=== PATIENT | female | born 1955 | race Caucasian/White ===

== ENCOUNTER 2019-01-03 08:28 | Inpatient (IN) ==
--- NOTE | 2018-12-26 13:24 | EKG Report ---
Test Performed on : 12/26/2018 1:16:43 PM Test Reason : PAT Blood Pressure : / mmHG Vent. Rate : 115 BPM Atrial Rate : 115 BPM P-R Int : 132 ms QRS Dur : 078 ms QT Int : 318 ms P-R-T Axes : 047 015 058 degrees QTc Int : 439 ms Sinus tachycardia. Possible Left atrial enlargement Left ventricular hypertrophy Cannot rule out Inferior infarct , age undetermined Anterior infarct , age undetermined Abnormal ECG When compared with ECG of 03-NOV-2013 07:52, Anterior infarct is now present Minimal criteria for Inferior infarct are now present Confirmed by Kenny DOVE, MBatsheva Louis ([id number]) on 12/27/2018 12:06:59 PM
[2018-12-26 13:29] LABS: URINE SOURCE CLEAN CATCH
[2018-12-26 14:00] LABS: BILIRUBIN URINE NEGATIVE (NEGATIVE); BLOOD URINE NEGATIVE (NEGATIVE); COLOR YELLOW; GLUCOSE URINE NEGATIVE (NEGATIVE); KETONE URINE NEGATIVE (NEGATIVE); LEUKOCYTES URINE NEGATIVE (NEGATIVE); NITRITE URINE NEGATIVE (NEGATIVE); PH URINE 5.5; PROTEIN URINE NEGATIVE (NEGATIVE); SP GRAVITY URINE 1.016; TURBIDITY URINE CLEAR (CLEAR); UROBILINOGEN URINE NORMAL (NORMAL)
[2018-12-26 14:01] LABS: BASO# 0.06 X1000 (0.0-0.2); BASO% 0.4 % (0.0-0.8); EOS# 0.13 X1000 (0.0-0.7); HEMATOCRIT 41.5 % (37.0-47.0); HEMOGLOBIN 13.6 g/dL (12.0-16.0); IMM GRAN# 0.04 X1000 (0.0-0.04); IMM GRAN% 0.3 % (0.0-0.5); LYMPH# 2.33 X1000 (1.2-3.4); LYMPH% 17.3 % (20.5-51.1); MCH 29.6 PG (27-31); MCHC 32.8 g/dL (33-37); MCV 90.4 FL (81-99); MONO# 1.25 X1000 (0.11-0.59); MONO% 9.3 % (1.7-9.3); MPV 8.9 FL (7.4-10.4); NEUT# 9.69 X1000 (1.4-6.5); NEUT% 71.7 % (42.2-75.2); PLT 476 X1000 (130-400); RBC 4.59 XMIL (4.2-5.4); RDW 13.8 % (11.5-14.5); UR EPITHELIAL CELLS <10 /HPF (<10); URINE BACTERIA NEGATIVE /HPF; URINE RBC <10 /HPF (<10); URINE WBC <10 /HPF (<10)
[2018-12-26 14:04] LABS: INR 1.06; PROTIME 13.9 Seconds (11.0-16.0)
[2018-12-26 14:23] LABS: HEMOGLOBIN A1C 5.8 % (4.8-6.0)
[2018-12-26 14:29] LABS: CALCIUM 9.8 mg/dL (8.8-10.2); CREATININE 1.3 mg/dL (0.5-0.9); POTASSIUM 4.5 mmol/L (3.5-5.1)
[~2019-01-03 08:28] MED LIST: DIPRIVAN 1% ONE; FENTANYL ONE; ROBINUL ONE; VERSED ONE; XYLOCAINE-MPF 2% ONE
[2019-01-03] MEDS ORDERED: DECADRON ONE (08:31)
[2019-01-03] MEDS ORDERED: OFIRMEV 1000 MG/ISOTONIC SOLN 1,000 MG/100 ML BOTTLE ONE (08:31)
[2019-01-03] MEDS ORDERED: PEPCID ONE (09:01)
[2019-01-03] MEDS ORDERED: COLACE ONE (09:01)
[2019-01-03] MEDS ORDERED: REGLAN ONE (09:01)
[2019-01-03] MEDS ORDERED: LYRICA ONE (09:01)
[2019-01-03] MEDS ORDERED: LR 1,000 ML ONE (09:02)
[2019-01-03] MEDS ORDERED: CELEBREX ONE (09:02)
[2019-01-03] MEDS ORDERED: KEFZOL 1 GM/D5W 2 GM/100 ML IVPB ONE (09:02)
[2019-01-03] MEDS ORDERED: DURAMORPH ONE (09:30)
[2019-01-03] MEDS ORDERED: TORADOL ONE (09:30)
[2019-01-03] MEDS ORDERED: MARCAINE 0.25% PF ONE ×2 (09:30→09:50)
[2019-01-03] MEDS ORDERED: VANCOMYCIN ONE (09:31)
[2019-01-03] MEDS ORDERED: EXPAREL 1.3% ONE (09:31)
[2019-01-03] MEDS ORDERED: CYKLOKAPRON 1,000 MG/NS 1,000 MG/100 ML IVPB ONE ×2 (09:34)
[2019-01-03] MEDS ORDERED: SODIUM CHLORIDE 0.9% ONE (09:34)
[2019-01-03] MEDS ORDERED: EPHEDRINE ONE (10:19)
[2019-01-03] MEDS ORDERED: DIPRIVAN 1% ONE ×2 (11:06→11:52)
[2019-01-03 11:18] LABS: URINE SOURCE CATH
[2019-01-03 11:21] LABS: BILIRUBIN URINE NEGATIVE (NEGATIVE); BLOOD URINE NEGATIVE (NEGATIVE); COLOR YELLOW; GLUCOSE URINE NEGATIVE (NEGATIVE); KETONE URINE NEGATIVE (NEGATIVE); LEUKOCYTES URINE NEGATIVE (NEGATIVE); NITRITE URINE NEGATIVE (NEGATIVE); PH URINE 5.5; PROTEIN URINE NEGATIVE (NEGATIVE); SP GRAVITY URINE 1.016; TURBIDITY URINE CLEAR (CLEAR); UROBILINOGEN URINE NORMAL (NORMAL)
[2019-01-03 11:22] LABS: UR EPITHELIAL CELLS <10 /HPF (<10); URINE BACTERIA NEGATIVE /HPF; URINE RBC <10 /HPF (<10); URINE WBC <10 /HPF (<10)
--- NOTE | 2019-01-03 12:18 | OPERATIVE NOTE ---
PROCEDURE DATE: 01/03/2019 PREOPERATIVE DIAGNOSIS: Degenerative joint disease right knee. POSTOPERATIVE DIAGNOSIS: Degenerative joint disease right knee. PROCEDURE: Right total knee replacement with Aesculap ceramic coated knee. SURGEON: Dale Minor MD. SALES TEAM MANAGER: Dr. Davonte Mcclendon. Dr. Mcclendon was necessary for proper retraction and manipulation of the knee during the case. ANESTHESIA: Spinal. COMPLICATIONS: None. PROCEDURE IN DETAIL: This 63-year-old female presents for right total knee. Risks, benefits, and no guarantees were discussed with the patient, and she was willing to proceed. She was taken to the operating room and satisfactory anesthesia obtained. The right leg was prepped and draped in the usual sterile fashion. A time-out was taken to confirm operative site, procedure, and patient. The leg was wrapped with an Esmarch and tourniquet inflated to 350 mmHg. A midline incision was made over the front of the knee followed by a quad tendon sparing arthrotomy. The patella was everted and resurfaced with freehand technique and subluxed laterally. The knee was flexed, and an intramedullary hole was made in the distal femur and the distal femoral cutting block secured on the distal femur. The 10 mm was resected off the distal femur. The sizing system was then used and the femur sized to a size 5 narrow femoral component. The 4 in 1 block was secured and the anterior, posterior, and chamfer cuts sequentially made. Any osteophytes were debrided about the femur. The knee was flexed and a PCL retractor placed behind the tibia to protect the neurovascular bundle. 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 The tibial cutting block was secured with intramedullary alignment, and the tibial resection made. The tibia was sized to a size 2 tibial tray. A tibial tray trial was used to prepare for the punch and the implant, and assembled with the stem. The size 5 narrow femur was then impacted onto the femoral implant. The notch was created for the posterior stabilized design using the femoral trial provided osteotome and saw. Trialing with a 10 mm thick poly revealed good range of motion and stability. The patella was sized to a P3 patellar implant, and the drill hole was placed for the patella. The trial components were removed. The bony surfaces thoroughly irrigated with pulsatile lavage. Cement with a gram of vancomycin was then utilized to cement an Aesculap T2 tibia with a 14 x 132 tibial stem, and a size 5 narrow right femoral component. A P3 patella was cemented as well. While the cement cured, excess cement was removed with a [place] elevator. The joint capsule was injected with Exparel for pain management. A Hemovac drain was placed. After curing of the cement, any excess cement was removed with an osteotome. The permanent poly was inserted for 10 mm thick poly, and the knee reduced. Final range of motion was 0 to 120 degrees with midline patellar tracking and excellent soft tissue balance. All components were coated with ceramic coating due to the patient's metal sensitivity. The joint capsule was then thoroughly irrigated and closed with #1 Vicryl in the arthrotomy, 2-0 Vicryl in the subcutaneous, and a running subcuticular type closure for the skin. Care was taken to avoid any haider on the skin. Sterile bandages were applied, and the tourniquet released with good return of capillary blood flow. She was recovered from anesthesia and transferred to recovery room in stable condition. No intraoperative complications were noted. Instrument count and sponge count was correct at the time of closure. cc: Jelani Minor MD
[2019-01-03] MEDS ORDERED: NS 1,000 ML ONE (12:38)
[2019-01-03] MEDS ORDERED: MORPHINE IV PRN ×3 (12:45)
[2019-01-03] MEDS ORDERED: ZOFRAN ODT PO PRN (12:45)
--- NOTE | 2019-01-03 13:08 | Diag Imaging Result Doc PS360 ---
EXAM: KNEE 1-2 VIEWS-RIGHT 01/03/2019 HISTORY: Right total knee TECHNIQUE: Right knee two views COMMENT: There is a total knee arthroplasty. There is no evidence of fracture or other acute bony abnormality. IMPRESSION: Postsurgical changes. Electronically signed by Nic Black 01/03/2019 1:05 PM
--- NOTE | 2019-01-03 13:50 | ORTHOPAEDICS PROGRESS NOTE ---
DATE: 01/03/2019 SUBJECTIVE DATA: Ms. Fregoso seen postop day 0 for right total knee arthroplasty. She reports doing well at this time. She reports she still has some numbness about her knee. She states she would like to go to rehab if that is possible. She would like to speak with the social worker delinquency prevention. OBJECTIVE DATA: Is good sensation to right lower extremity. There is good pedal pulses. The bandages are clean and dry at this time. There is negative Homans sign. Vital signs are stable. Degenerative joint disease right knee with right total knee arthroplasty. PLAN: We will plan on monitoring Ms. Fregoso overnight. Will see if we get her changed to inpatient status. Will check back on her in the morning. Dictated by MARK Wakefield for Jelani Minor MD cc: MARK Wakefield MD
[2019-01-03] MEDS: TYLENOL PO SCH ×2 (14:37→20:18)
[2019-01-03] MEDS: OXY IR PO PRN ×3 (14:37→23:31)
[2019-01-03] MEDS: ULTRAM PO SCH ×2 (14:38→20:19)
--- NOTE | 2019-01-03 16:58 | Diag Imaging Result Doc PS360 ---
EXAM: CHEST-1 VIEW - 01/03/2019 HISTORY: rehab TECHNIQUE: Portable chest COMPARISON: 10/09/2011 FINDINGS: Heart size appears in the upper range of normal. There is mild prominence of central markings which appears to be chronic. There is mild subsegmental atelectasis at the left base. There is no consolidation, pleural effusion, or pneumothorax identified. IMPRESSION: Mild subsegmental atelectasis at left base. No other evidence of acute disease. Electronically signed by Sang Apodaca 01/03/2019 4:55 PM
[2019-01-03] MEDS: KEFZOL 2 GM/D5W 2 GM/50 ML IVPB IV SCH (17:10)
[2019-01-03] MEDS: CELEBREX PO SCH (20:18)
[2019-01-03] MEDS: COLACE PO SCH (20:18)
[2019-01-03] MEDS ORDERED: NON-FORMULARY MED (Celecoxib [Celebrex] 200 MG) PO SCH (21:00)
[2019-01-04] MEDS: NS 1,000 ML IV SCH ×2 (01:16→01:18)
[2019-01-04] MEDS: PLETAL PO SCH ×3 (01:16→21:13)
[2019-01-04] MEDS: KEFZOL 2 GM/D5W 2 GM/50 ML IVPB IV SCH (01:17)
[2019-01-04] MEDS: TYLENOL PO SCH ×4 (01:17→21:13)
[2019-01-04] MEDS: ULTRAM PO SCH ×2 (01:17→08:10)
[2019-01-04] MEDS: OXY IR PO PRN ×3 (04:16→11:50)
[2019-01-04 06:00] LABS: HEMATOCRIT 34.1 % (37.0-47.0); HEMOGLOBIN 11.1 g/dL (12.0-16.0)
[2019-01-04 06:26] LABS: AGAP 11; BUN 15 mg/dL (8-22); CALCIUM 8.2 mg/dL (8.8-10.2); CHLORIDE 100 mmol/L (98-107); COSMO 265; CREATININE 0.7 mg/dL (0.5-0.9); ESTIMATED GFR > 60; GLUCOSE 100 mg/dL (70-104); POTASSIUM 4.1 mmol/L (3.5-5.1); SODIUM 132 mmol/L (136-145); TCO2 21 mmol/L (25-35)
--- NOTE | 2019-01-04 07:59 | ORTHOPAEDICS PROGRESS NOTE ---
DATE: 01/04/2019 Ms. Fregoso is seen status post total knee replacement. At the present time, she is afebrile with stable vital signs. Her bandage is clean and dry. We will discontinue the lines and mobilize her today. We will await to hear from the psychiatric social worker supervisor regarding rehab placement. She can be mobilized today full weightbearing. cc: Jelani Minor MD
[2019-01-04] MEDS: PRILOSEC PO SCH (08:08)
[2019-01-04] MEDS: AVAPRO PO SCH (08:08)
[2019-01-04] MEDS: ASPIRIN PO SCH (08:09)
[2019-01-04] MEDS: LIPITOR PO SCH (08:09)
[2019-01-04] MEDS: COLACE PO SCH ×2 (08:09→21:13)
[2019-01-04] MEDS: CELEBREX PO SCH (08:09)
[2019-01-04] MEDS ORDERED: CELEXA PO SCH (09:00)
[2019-01-04] MEDS ORDERED: PEPCID PO SCH (09:00)
[2019-01-04] MEDS ORDERED: ASPIRIN PO SCH (09:00)
[2019-01-04] MEDS ORDERED: DESYREL PO SCH (09:00)
[2019-01-04] MEDS ORDERED: DUONEB (A & A) INH PRN (09:27)
--- NOTE | 2019-01-04 09:48 | Diag Imaging Result Doc PS360 ---
EXAM: CHEST-PORTABLE 01/04/2019 HISTORY: decreased O2 sat, congestion TECHNIQUE: AP portable at 0938 COMMENT: There is increased interstitial and some alveolar opacity in both lungs which has worsened since 01/03/2019. There is cardiomegaly. IMPRESSION: Pulmonary edema. Electronically signed by Nic Black 01/04/2019 9:46 AM
[2019-01-04] MEDS ORDERED: NS 1,000 ML IV SCH (10:00)
--- NOTE | 2019-01-04 10:23 | EKG Report ---
Test Performed on : 01/04/2019 10:16:55 AM Test Reason : acute resp. failure, Blood Pressure : / mmHG Vent. Rate : 076 BPM Atrial Rate : 076 BPM P-R Int : 148 ms QRS Dur : 086 ms QT Int : 376 ms P-R-T Axes : 064 047 054 degrees QTc Int : 423 ms Normal sinus rhythm. Normal ECG When compared with ECG of 26-DEC-2018 13:16, Vent. rate has decreased BY 39 BPM Criteria for Anterior infarct are no longer present Minimal criteria for Inferior infarct are no longer present Confirmed by Sarah Cox MD ([id number]) on 01/04/2019 12:03:07 PM
[2019-01-04 10:27] LABS: ALLEN TEST YES; BE -2.5 mmoll (-3.0-3.0); BLOOD TYPE ARTERIAL; HCO3-(ACT) 22.9 mmoll (20.0-26.0); METHB 0.9 % (0.0-1.5); O2(CT) 14.3 mL/dL (15.0-23.0); O2HB 91.8 % (95.0-99.0); PCO2(98.6) 34 mmHg (35-45); PO2(98.6) 56 mmHg (60-100); SAMPLE BLOOD; SAO2 95.6 % (95.0-100.0); THB 11.1 g/dL (11.5-17.4); pH(98.6) 7.41 (7.35-7.45)
[2019-01-04 10:28] LABS: MODALITY CANNULA
[2019-01-04] MEDS ORDERED: LASIX IV ONE ×2 (10:58→15:00)
--- NOTE | 2019-01-04 11:06 | CONSULTATION ---
DATE OF CONSULTATION: 01/04/2019 CHIEF COMPLAINT: Medical consultation for low O2 saturation in the 70s this a.m. with shortness of breath and rhonchi throughout lung mcintyre status post right total knee replacement on 01/03/2019. HISTORY OF PRESENTING ILLNESS: This is a 63-year-old, female who presented to [facility] to Orthopedic [facility] for a right total knee replacement on 01/03/2019. This morning, on 01/04/2019, patient complained of being short of breath and was noted to have a room O2 saturation in the 70s. Was placed on O2 at 6 L. It came up to 93%. Was noted to have rhonchi to bilateral lungs posteriorly. Equal lung expansion and chest wall movement noted. No current respiratory distress. She is receiving a breathing treatment at this time. We have obtained a portable chest x-ray and we will follow this patient throughout the remainder of her hospital stay. PAST MEDICAL HISTORY: Hypertension, cirrhosis, depression, and GERD. PAST SURGICAL HISTORY: Left knee replacement, now had a right knee replacement on 01/03/2019, and a hip replacement. FAMILY HISTORY: Reviewed and noncontributory. SOCIAL HISTORY: She currently lives alone. She is a former smoker of 30+ years but has been quit. Denies any alcohol or illicit drug use. ALLERGIES: Azithromycin, latex, metronidazole,metal,mycin HOME MEDICATIONS: She takes tramadol 50 mg p.o. q.8 hours p.r.n. (that has been held). We will continue her aspirin 325 mg p.o. daily, atorvastatin 40 mg p.o. daily, Celebrex 200 mg p.o. b.i.d., cilostazol 100 mg p.o. b.i.d., Celexa 40 mg p.o. daily, Avapro 150 mg p.o. daily, omeprazole 20 mg p.o. daily, and trazodone 50 mg p.o. daily. LABORATORY DATA: Showed a white blood cell count of 13.50, hemoglobin of 13.6, hematocrit 41.5, with platelets of 476,000. This was on 12/26/2018. This morning, we repeated her hemoglobin and hematocrit, and it was 11.1 and 34.1. Sodium was 132, potassium 4.1, chloride 100, CO2 of 21, BUN of 15, creatinine 0.7. Urinalysis was negative on 01/03/2019. A chest x-ray that was done yesterday afternoon showed mild subsegmental atelectasis at the left base but no other evidence of acute disease. She has a portable chest x-ray pending at this time. REVIEW OF SYSTEMS: She denied any fever, chills, blurred vision, dizziness, chest pain. She has had a nonproductive cough and shortness of breath. Denied any chest pain, abdominal pain, constipation, diarrhea, burning or hurting with urination. She does have some pain to her right knee from her status post total knee replacement, being well controlled with her current pain medication regimen. PHYSICAL EXAMINATION: Vitals: This morning showed a temperature of 98.1 degrees, pulse 70, respirations 18, blood pressure 168/60, and was saturating 94% on room air this morning. Around 9:15, she was noted to have an O2 saturation in the 70s and was placed on nasal cannula at 6 L. Came to an O2 saturation of 93%. HEENT: Normocephalic, atraumatic. Normal ENT inspection. Oropharynx and nares are clear. Eyes: Pupils are equal, round, and reactive to light and accommodation. Extraocular movements are intact. Neck: Normal inspection. Normal range of motion. Lungs: Diffuse rhonchi and crackles bilaterally. Equal lung expansion and chest wall movement noted. O2 via nasal cannula currently in use. Heart: Regular rate and rhythm. No murmurs, rubs, or gallops. Abdomen: Soft, nontender, nondistended. Bowel sounds are present x4 quadrants. Musculoskeletal: She has 5/5 strength to bilateral upper extremities and her left lower extremity. Of course, weakness noted to her right lower extremity as she is status post her total knee replacement yesterday. Neurological: Alert and oriented x 4. The cranial nerves 2-12 appear grossly intact. LABS: Reviewed. IMAGING: Reviewed ASSESSMENT: 1. Acute hypoxemic respiratory failure. The patient appears to be volume overloaded. Will start diuretic therapy, supplemental oxygen and bronchodilator therapy. Will consult the marketing lead for further assistance with management. 2. Acute pulmonary edema. Diuretic therapy will be started. Will monitor the patient's respiratory status closely. 3. Pneumonia. Will order blood and sputum cultures and start broad spectrum antibiotics. 4. Status post right total knee replacement on 01/03/2019. Management as per the orthopedic surgeon. 5. Morbid obesity. Aware. 6. Hyponatremia. Monitor closely. 7. Hypertension. Will start oral antihypertensive therapy. 8. DVT prophylaxis. Will start lovenox. Dictated by MARK Murillo for Michelle Elizondo MD cc: MARK Murillo MD John R. Riehl, MD Edwin K. Matthews, MD I performed a face to face encounter on the patient. I reviewed all labs and imaging on the patient. I agree with the consultation as dictated. JOSE
[2019-01-04 11:15] LABS: CK INDEX 1.6 (0.0-2.5); CK-MB 4.27 ng/mL (0.0-5.0)
--- NOTE | 2019-01-04 11:53 | Diag Imaging Result Doc PS360 ---
EXAM: CT ANGIOGRM PULMONARY ARTERIES 01/04/2019 HISTORY: acute respiratory failure TECHNIQUE: This exam was performed using automated exposure control, adjustment of mA or kV according to patient size, and/or use of iterative reconstruction technique. COMMENT: There are no previous studies available for comparison. 3-D MIPS were performed. There is no evidence of filling defects in the pulmonary arteries. There are atherosclerotic calcifications in the thoracic aortic arch. There is no evidence of aneurysm or dissection. There are coronary calcifications. There are bilateral pleural fluid collections. There is a small hiatal hernia. There is an 18 mm precarinal and a 2.1 cm right paraesophageal node. There is increased interstitial markings bilaterally with groundglass opacity in both upper lobes and both lower lobes. Compared to the previous abdominal study of 11/02/2013 the basilar opacities are new. The pleural fluid collections were not present at that time. IMPRESSION: Pulmonary edema plus minus pneumonia with pleural effusions. No evidence of pulmonary emboli. Electronically signed by Nic Black 01/04/2019 11:52 AM
[2019-01-04] MEDS: MAXIPIME 1 GM in NS 50 ML IV SCH (12:57)
[2019-01-04] MEDS: COREG PO SCH ×3 (12:57→21:15)
[2019-01-04] MEDS: ZYVOX 600 MG/D5W 600 MG/300 ML IVPB IV SCH (12:57)
[2019-01-04] MEDS: LOVENOX SUBQ SCH (12:59)
[2019-01-04] MEDS: LABETALOL IV ONE ×2 (13:02→14:01)
[2019-01-04 14:36] LABS: BILIRUBIN URINE NEGATIVE (NEGATIVE); BLOOD URINE NEGATIVE (NEGATIVE); COLOR STRAW; GLUCOSE URINE NEGATIVE (NEGATIVE); KETONE URINE NEGATIVE (NEGATIVE); LEUKOCYTES URINE NEGATIVE (NEGATIVE); NITRITE URINE NEGATIVE (NEGATIVE); PROTEIN URINE NEGATIVE (NEGATIVE); SP GRAVITY URINE 1.012; TURBIDITY URINE CLEAR (CLEAR); URINE SOURCE CATH; UROBILINOGEN URINE NORMAL (NORMAL)
[2019-01-04] MEDS: MORPHINE IV PRN ×2 (14:36→18:35)
[2019-01-04] MEDS: ZOFRAN IV PRN (14:36)
[2019-01-04 14:37] LABS: UR EPITHELIAL CELLS <10 /HPF (<10); URINE BACTERIA NEGATIVE /HPF; URINE RBC <10 /HPF (<10); URINE WBC <10 /HPF (<10)
[2019-01-04] MEDS: DUONEB (A & A) INH SCH ×3 (15:17→23:16)
[2019-01-04] MEDS: DESYREL PO SCH (21:13)
--- NOTE | 2019-01-04 21:41 | PULMONOLOGY CONSULTATION ---
DATE: 01/04/2019 REQUESTING: Dr. Elizondo. REASON FOR CONSULTATION: Respiratory failure with pulmonary edema. HISTORY OF PRESENT ILLNESS: Ms. Fregoso is a 63-year-old white female with a greater than 50- pack-year history for tobacco (nonsmoker times several years), history of extensive vascular disease without known coronary artery disease. She underwent an elective right total knee replacement yesterday. She developed increased shortness of breath with labored breathing this morning during a walk with physical therapy, and a CAT call was initiated. An emergent CT pulmonary angiogram was performed which revealed no evidence of pulmonary emboli but did reveal pulmonary edema and small effusions. The patient has received a diuretic and has had significant improvement. She reports her breathing has significantly improved. PAST MEDICAL HISTORY/PROBLEM LIST: 1. Peripheral vascular disease status post stents in both lower extremities. 2. Status post right carotid endarterectomy. 3. Status post bilateral hip replacement. 4. Hypertension. 5. History of prior pulmonary edema and fluid overload by report. 6. Hypertension. 7. Dyslipidemia. 8. History of asthma as a child. 9. Osteoarthritis. 10. Depression. 11. History of kyphoplasty. 12. Status post colon resection. SOCIAL HISTORY: Prior tobacco use. No alcohol use. FAMILY HISTORY: Positive for heart disease. REVIEW OF SYSTEMS: Notable for shortness of breath, snoring, cough with pink- tinged sputum earlier today. PHYSICAL EXAMINATION: General: Reveals an obese white female with a BMI of greater than 35, resting comfortably and in no distress. Vital Signs: BP 147/72, heart rate 77, respiratory rate 20, oxygen saturation 96% on supplemental oxygen. HEENT: Pupils are equal and reactive. Oropharynx appears clear. Neck: Supple. Chest: Reveals faint crackles in the lung bases. Cardiac: S1, S2 with a soft 2/6 systolic ejection murmur. Abdomen: Obese and soft. Extremities: Reveal surgical dressings on the right knee. No venous cords are appreciated. LABORATORIES: Arterial blood gas reveals a pH of 7.41, pCO2 of 34, PO2 of 56 on 6 L per nasal cannula. Sodium 132, potassium 4.1, chloride 100, bicarbonate 21, BUN 15, creatinine 0.7. Troponin is less than 0.01. EKG reveals normal sinus rhythm and read as a normal EKG. IMPRESSION: A 63-year-old with extensive tobacco history, obesity, and extensive peripheral vascular disease who has developed acute pulmonary edema and pleural effusions following a surgical procedure. The patient was hypertensive during her event earlier today, and likely has a component of diastolic dysfunction. She has significantly improved with diuresis. ProBNP is elevated, but initial troponin is negative. RECOMMENDATIONS: 1. Continue oxygen for acute hypoxemic respiratory failure. 2. Diuresis as tolerated. 3. Follow up troponin. 4. Consider outpatient ischemia evaluation. 5. Continue ICU monitoring until her oxygen requirements are returning toward her baseline. cc: MD Jelnai Anders MD [facility]
[2019-01-05] MEDS: MAXIPIME 1 GM in NS 50 ML IV SCH ×2 (00:39→11:52)
[2019-01-05] MEDS: ZYVOX 600 MG/D5W 600 MG/300 ML IVPB IV SCH ×2 (00:40→12:58)
[2019-01-05] MEDS: MORPHINE IV PRN ×2 (00:40→05:47)
[2019-01-05] MEDS: TYLENOL PO SCH ×4 (03:17→21:07)
[2019-01-05 04:57] LABS: ALLEN TEST YES; BE 3.5 mmoll (-3.0-3.0); BLOOD TYPE ARTERIAL; HCO3-(ACT) 27.6 mmoll (20.0-26.0); METHB 0.9 % (0.0-1.5); O2HB 96.4 % (95.0-99.0); PCO2(98.6) 44 mmHg (35-45); PO2(98.6) 92 mmHg (60-100); SAMPLE BLOOD; SAO2 99.1 % (95.0-100.0); THB 11.7 g/dL (11.5-17.4); pH(98.6) 7.42 (7.35-7.45)
[2019-01-05 04:58] LABS: MODALITY CANNULA
[2019-01-05 05:23] LABS: BASO# 0.07 X1000 (0.0-0.2); BASO% 0.6 % (0.0-0.8); EOS# 0.22 X1000 (0.0-0.7); EOS% 1.9 % (0.0-10.0); HEMATOCRIT 33.4 % (37.0-47.0); IMM GRAN# 0.02 X1000 (0.0-0.04); IMM GRAN% 0.2 % (0.0-0.5); LYMPH# 1.64 X1000 (1.2-3.4); LYMPH% 14.4 % (20.5-51.1); MCH 29.5 PG (27-31); MCHC 32.9 g/dL (33-37); MCV 89.5 FL (81-99); MPV 9.6 FL (7.4-10.4); NEUT% 67.9 % (42.2-75.2); PLT 330 X1000 (130-400); RBC 3.73 XMIL (4.2-5.4); RDW 13.4 % (11.5-14.5); WBC 11.35 X1000 (4.8-10.8)
[2019-01-05 05:47] LABS: AGAP 12; BUN 15 mg/dL (8-22); CALCIUM 8.4 mg/dL (8.8-10.2); CHLORIDE 103 mmol/L (98-107); COSMO 283; CREATININE 0.8 mg/dL (0.5-0.9); ESTIMATED GFR > 60; GLUCOSE 112 mg/dL (70-104); POTASSIUM 3.9 mmol/L (3.5-5.1); SODIUM 141 mmol/L (136-145); TCO2 26 mmol/L (25-35)
[2019-01-05 05:48] LABS: ALBUMIN 3.4 g/dL (3.5-5.0); DIRECT BILIRUBIN 0.1 mg/dL (0.00-0.20); TOTAL BILIRUBIN 0.34 mg/dL (0.20-1.00); TOTAL PROTEIN 6.8 g/dL (6.3-8.3)
--- NOTE | 2019-01-05 06:59 | Diag Imaging Result Doc PS360 ---
EXAM: CHEST-PORTABLE 01/05/2019 HISTORY: pneumonia TECHNIQUE: AP portable at 0502 COMMENT: The lungs are better expanded than on 01/04/2019. There is somewhat less pleural fluid in the minor fissure. The lungs are slightly clearer. IMPRESSION: Improved pulmonary edema. Electronically signed by Nic Black 01/05/2019 6:57 AM
[2019-01-05] MEDS: DUONEB (A & A) INH SCH ×5 (07:28→22:50)
[2019-01-05] MEDS ORDERED: LASIX IV ONE (08:50)
[2019-01-05] MEDS: ASPIRIN PO SCH (08:59)
[2019-01-05] MEDS: COREG PO SCH ×3 (08:59→21:07)
[2019-01-05] MEDS: AVAPRO PO SCH (08:59)
[2019-01-05] MEDS: PRILOSEC PO SCH (08:59)
[2019-01-05] MEDS: COLACE PO SCH ×2 (09:00→21:07)
[2019-01-05] MEDS: PLETAL PO SCH ×2 (09:00→21:06)
[2019-01-05] MEDS: LIPITOR PO SCH (09:00)
--- NOTE | 2019-01-05 09:32 | ECHO REPORT ---
ORDER DATE: 01/04/2019 INDICATION: Assess LV function. FINDINGS: 1. The right atrium appears normal in size at 3.3 cm. 2. Trace tricuspid regurgitation. Insufficient data to estimate RV systolic pressure. 3. Normal RV size and systolic function. 4. Mild pulmonic insufficiency. 5. Left atrium appears normal in size with a dimension of 3.3 cm. 6. No mitral valve prolapse. Mild mitral regurgitation. No evidence of mitral stenosis. 7. Normal LV size, end-diastolic dimension of 5.1. Normal wall thicknesses with a posterior and interventricular septal wall thickness of 1.1 cm each. Normal LV systolic function. The estimated EF appears to be greater than 55%. Border Stylo echocontrast was used on this study and does not seem to indicate any segmental wall motion abnormalities. 8. Aortic valve is sclerotic. There does not appear to be any significant degree of stenosis or insufficiency. 9. Aorta appears normal in visualized segments. 10. No pericardial effusion seen. cc: MD Michelle Woody MD John R. Riehl, MD
[2019-01-05] MEDS: OXY IR PO PRN ×4 (09:50→22:36)
--- NOTE | 2019-01-05 11:24 | PROGRESS NOTE ---
DATE: 01/05/2019 SUBJECTIVE: This morning, Ms. Fregoso refers to be doing okay. Denies any new complaints. No shortness of breath. No chest pain. OBJECTIVE: Vital signs: Blood pressure is 134/66, pulse of 77, respiration is 18, temperature 98.1 degrees. General: Ms. Fregoso is a 63-year-old female. She is in bed. No distress. HEENT: Mucosa is pink and moist. Anicteric. Acyanotic. Neck: Supple. Chest: Good air entry bilateral. There are no crepitations, no rhonchi. Cardiovascular: Regular rate and rhythm. There is about a 2/6 murmur radiating to the neck. Abdomen: Soft, nontender. Extremities: No pedal edema. The right knee is currently in orthopedic dressing, there is an ice pack in place. Central nervous system: Patient is awake, alert, oriented. There is no focal neurological deficit. LABORATORY DATA: CBC has been reviewed. Mild leukocytosis and mild normocytic anemia. Normal platelet count. Chemistry is also reviewed, completely normal. IMAGING: The patient's chest x-ray this morning shows improved pulmonary edema. The echocardiogram this morning reading shows an ejection fraction of 55% with no wall motion abnormality. ASSESSMENT: 1. Acute hypoxemic respiratory failure after knee surgery. We think this is a combination of a noncardiogenic pulmonary edema and possibly some pneumonitis from aspiration. A follow-up chest x-ray this morning shows significant improvement. The patient was on diuretic therapy. She is currently asymptomatic. 2. Pulmonary edema, presumably noncardiogenic in origin, improved. 3. Status post right total knee replacement. 4. Hypertension, currently controlled. 5. Dyslipidemia. Patient is on statin. PLAN: In general, I think Ms. Fregoso is doing a lot better. We are going to transfer her from the ICU to the surgical floor. Continue with her current medications and await further review from Orthopedics. cc: MD Jelani Dotson MD
[2019-01-05] MEDS: LOVENOX SUBQ SCH (14:12)
--- NOTE | 2019-01-05 14:58 | ORTHOPAEDICS PROGRESS NOTE ---
DATE: 01/05/2019 SUBJECTIVE DATA: Ms. Fregoso is seen for her recent right total knee arthroplasty that she had on Wednesday. She reports she was doing very well until yesterday, and had an episode of shortness of breath. She reports she is doing much better now. She states that they have orders to transfer her to the floor, hopefully today. OBJECTIVE DATA: There is good sensation in her right lower extremity. Her bandages are clean and dry. There is negative Homans sign. There is good sensation. There is good capillary refill of the toes. There are good pedal pulses. ASSESSMENT: Degenerative joint disease, right knee with right total knee arthroplasty. PLAN: I will plan on monitoring Ms. Fregoso since she has had some complications while she is in the hospital. She will need to be transferred to the floor for a day or two before we consider discharging her. We will check back on her later. Dictated by MARK Wakefield for Jelani Minor MD cc: MARK Wakefield MD
[2019-01-05] MEDS: DESYREL PO SCH (21:07)
--- NOTE | 2019-01-05 21:47 | PULMONOLOGY PROGRESS NOTE ---
DATE: 01/05/2019 SUBJECTIVE: The patient is awake, alert, and conversant. She reports her breathing has significantly improved. OBJECTIVE: Vital Signs: The patient is approximately 6 L negative over the last 24 hours. Blood pressure 121/66, heart rate 85, respiratory rate 19, oxygen saturation 96% on 5 L per nasal cannula. HEENT: Pupils are equal and reactive. Oropharynx appears clear. Neck: Supple. Chest: Good air entry bilaterally with minimal crackles in the lung bases. Cardiac: S1, S2. Abdomen: Soft and without hepatosplenomegaly. Extremities: Appropriate dressings on the right knee. LABORATORIES: Chest x-ray reveals better expansion with decreasing pulmonary edema. White blood count 11.3, hemoglobin 11.0, platelet count 330,000. Arterial blood gas reveals a pH of 7.42, pCO2 of 44, pO2 of 92. Sodium 141, potassium 3.9, chloride 103, bicarbonate 26, BUN 15, creatinine 0.8. Sputum culture is pending. IMPRESSION: A 63-year-old with: 1. Acute pulmonary edema with pleural effusions (diastolic dysfunction suspected with hypertension and pain associated with surgical procedure). 2. Acute hypoxemic respiratory failure. 3. Obesity. 4. Extensive tobacco history. 5. Extensive peripheral vascular disease. DISCUSSION: A 63-year-old with problems outlined above. She continues to rapidly improve. RECOMMENDATIONS: 1. Wean oxygen as tolerated. 2. Begin ambulation today. 3. Anticipate discharge home soon. The patient may need transient oxygen at time of discharge given her weight and prior tobacco use. cc: MD Jelani Anders MD
[2019-01-06] MEDS: MAXIPIME 1 GM in NS 50 ML IV SCH ×2 (00:07→13:22)
[2019-01-06] MEDS: ZYVOX 600 MG/D5W 600 MG/300 ML IVPB IV SCH ×2 (00:45→13:55)
[2019-01-06] MEDS: OXY IR PO PRN ×5 (03:06→20:16)
[2019-01-06 05:29] LABS: BASO# 0.04 X1000 (0.0-0.2); BASO% 0.4 % (0.0-0.8); EOS# 0.26 X1000 (0.0-0.7); EOS% 2.4 % (0.0-10.0); HEMATOCRIT 32.5 % (37.0-47.0); HEMOGLOBIN 10.8 g/dL (12.0-16.0); IMM GRAN# 0.02 X1000 (0.0-0.04); IMM GRAN% 0.2 % (0.0-0.5); LYMPH# 1.64 X1000 (1.2-3.4); LYMPH% 14.8 % (20.5-51.1); MCH 29.8 PG (27-31); MCHC 33.2 g/dL (33-37); MCV 89.8 FL (81-99); MONO% 15.4 % (1.7-9.3); MPV 9.5 FL (7.4-10.4); NEUT% 66.8 % (42.2-75.2); PLT 336 X1000 (130-400); RBC 3.62 XMIL (4.2-5.4); RDW 13.3 % (11.5-14.5); WBC 11.06 X1000 (4.8-10.8)
[2019-01-06 05:53] LABS: AGAP 9; ALBUMIN 3.4 g/dL (3.5-5.0); BUN 12 mg/dL (8-22); CALCIUM 8.6 mg/dL (8.8-10.2); CHLORIDE 94 mmol/L (98-107); COSMO 263; CREATININE 0.8 mg/dL (0.5-0.9); ESTIMATED GFR > 60; GLUCOSE 108 mg/dL (70-104); POTASSIUM 3.4 mmol/L (3.5-5.1); SODIUM 131 mmol/L (136-145); TCO2 28 mmol/L (25-35)
[2019-01-06 05:54] LABS: PHOSPHORUS 3.4 mg/dL (2.7-4.5)
[2019-01-06] MEDS: TYLENOL PO SCH ×4 (06:12→20:12)
[2019-01-06] MEDS: DUONEB (A & A) INH SCH ×5 (07:59→23:42)
--- NOTE | 2019-01-06 08:11 | ORTHOPAEDICS PROGRESS NOTE ---
DATE: 01/06/2019 SUBJECTIVE DATA: Ms. Fregoso is seen postop for right total knee arthroplasty. She had surgery on Wednesday. She reports she is doing much better since she got transferred to the medical floor yesterday. She states she is still having occasional shortness of breath. She reports she is probably going to have some oxygen for a while. OBJECTIVE DATA: She has good sensation in the right lower extremity. Her bandages are clean and dry. There is negative Homans sign. The patient can dorsi and plantar flex her foot without difficulty. There is good capillary refill in toes. There are good pedal pulses. ASSESSMENT: 1. Degenerative joint disease right knee with right total knee arthroplasty. 2. Pulmonary edema with pleural effusions. This has been taken care of by Pulmonology. PLAN: Plan on monitoring Ms. Fregoso throughout her hospital stay. As far as the knee is concerned, it is doing well. We would like her to get medically stable before we discharge her. If she is doing well tomorrow, that may be then or possibly Wednesday. We will check back on her later. Dictated by MARK Wakefield for Jelani Minor MD cc: MARK Wakefield MD
[2019-01-06] MEDS ORDERED: KLOR-CON PO ONE (08:22)
[2019-01-06] MEDS: ASPIRIN PO SCH (08:49)
[2019-01-06] MEDS: LIPITOR PO SCH (08:50)
[2019-01-06] MEDS: AVAPRO PO SCH (08:50)
[2019-01-06] MEDS: COLACE PO SCH ×2 (08:50→20:16)
[2019-01-06] MEDS: PRILOSEC PO SCH (08:51)
[2019-01-06] MEDS: COREG PO SCH ×2 (08:51→20:14)
[2019-01-06] MEDS: PLETAL PO SCH ×2 (08:51→20:16)
[2019-01-06] MEDS: LOVENOX SUBQ SCH (13:23)
--- NOTE | 2019-01-06 17:39 | PROGRESS NOTE ---
DATE: 01/06/2019 SUBJECTIVE: Today Ms. Fregoso refers to be doing a whole lot better. She has been up with physical therapy. Breathing is under control. OBJECTIVE: Vital Signs: Blood pressure is down to 134/41, pulse 84, respirations 16, temperature 98.1 degrees. General: Ms. Fregoso is a 63-year-old female. She is in bed, in no distress. HEENT: Mucosa is pink and moist. Anicteric, acyanotic. Neck: Supple. Chest: Good air entry bilateral. I did not hear any crackles or rhonchi. Cardiovascular: Regular rate and rhythm. A 2/6 murmur radiating to the neck. Abdomen: Soft, nontender. Bowel sounds present. Extremities: No pedal edema. The right knee continues to be in orthopedic cast. The cooling pack is still in place. Central Nervous System: The patient is awake, alert, and oriented. LABORATORY DATA: WBC is 11.06, hemoglobin is 10.8, platelet count of 336,000. Chemistry is also reviewed. Sodium is 132, potassium is 3.4. Rest of chemistry is unremarkable. Procalcitonin was actually less than 0.1. ASSESSMENT: 1. Acute hypoxemic respiratory failure after knee surgery. We think this is a combination of noncardiogenic pulmonary edema and possible diastolic heart failure from severe hypertension. The patient is now off oxygen therapy. She is doing a whole lot better. 2. Pulmonary edema, improved. 3. Status post right total knee replacement. Today is day 3 postoperatively. The patient is participating with physical therapy. She seems to be doing well. 4. Hypertension is better controlled. 5. Dyslipidemia, on statin. PLAN: In general, Ms. Fregoso seems to be doing a whole lot better today. A chest x-ray yesterday did show improved pulmonary edema. She does not seem to have any infection going on, so I will discontinue her current antimicrobial therapy. We will continue addressing her. We will continue with the current blood pressure medications, and will be pending rehab placement for her in the coming days. cc: MD Jelani Dotson MD ADDENDUM TO PROGRESS NOTE: I have reviewed Ms Rodriges's sputum culture which is growing gram- negative eddy so there is a very high probability that she might have had some pneumonitis from the gram-negative eddy. So we are going to continue with her cefepime and I have discontinued the Zyvox. MTDD
[2019-01-06] MEDS: DESYREL PO SCH (20:16)
[2019-01-07] MEDS: OXY IR PO PRN ×6 (00:08→21:12)
[2019-01-07] MEDS ORDERED: MAXIPIME 1 GM in NS 50 ML IV SCH (01:00)
[2019-01-07] MEDS: TYLENOL PO SCH ×4 (06:00→21:13)
[2019-01-07] MEDS: DUONEB (A & A) INH SCH ×5 (07:31→23:34)
[2019-01-07] MEDS: ZOFRAN IV PRN (08:09)
--- NOTE | 2019-01-07 09:24 | PROGRESS NOTE ---
DATE: 01/07/2019 SUBJECTIVE: This morning Ms. Fregoso refers to be doing a whole lot better. Denies any new complaints. OBJECTIVE: Vital signs: Blood pressure is 154/47, pulse of 83, respirations 16, temperature is 99.0 degrees. General exam: Ms. Fregoso is a 63-year-old female. She was sitting up in a chair in no distress. HEENT: Mucosa is pink and moist. Anicteric. Acyanotic. Neck: Supple. Chest: Good air entry bilateral. There were no crepitations, no rhonchi. Cardiovascular: Regular rate and rhythm. There is a 2/6 murmur radiating to the neck. GI: Abdomen is soft, nontender. Bowel sounds present. Extremities: No pedal edema. The right knee still is off the orthopedic cast. The surgical wound looks well affronted. There is no bleeding, no draining. Distal pulses are present. LUBRICATION SERVICER: Patient is awake, alert and oriented. LABORATORY DATA: None for today. MICROBIOLOGY DATA: The sputum culture has grown Enterobacter cloacae species, which is sensitive to Levaquin, so we have changed her to Levaquin. ASSESSMENT: 1. Acute hypoxemic respiratory failure after knee surgery. We think it is a combination of pulmonary edema and Enterobacter cloacae pneumonitis. 2. Pulmonary edema, resolved. 3. Enterobacter cloacae pneumonitis. Antimicrobial has been switched to Levaquin for a total of 7 days antimicrobial therapy; today is day 3. 4. Hypertension, controlled. 5. Dyslipidemia. Will continue with statin. PLAN: So, in general I think Ms. Fregoso is doing a lot better. Physical therapy had just come in to evaluate her as well. We will continue with the current management. Her antimicrobial therapy has been switched to p.o. Levaquin for a total of 7 days. Ms. Fregoso is pending a rehab placement on Wednesday. cc: MD Jelani Dotson MD
[2019-01-07] MEDS: PRILOSEC PO SCH (09:40)
[2019-01-07] MEDS: PLETAL PO SCH ×2 (09:41→21:13)
[2019-01-07] MEDS: COLACE PO SCH ×2 (09:42→21:13)
[2019-01-07] MEDS: LEVAQUIN PO SCH (09:42)
[2019-01-07] MEDS: ASPIRIN PO SCH (09:42)
[2019-01-07] MEDS: LIPITOR PO SCH (09:42)
[2019-01-07] MEDS: AVAPRO PO SCH (09:43)
[2019-01-07] MEDS: CELEXA PO SCH (09:50)
[2019-01-07] MEDS: LOVENOX SUBQ SCH (13:00)
--- NOTE | 2019-01-07 18:52 | ORTHOPAEDICS PROGRESS NOTE ---
DATE: 01/07/2019 SUBJECTIVE: Zahira Fregoso is a 63-year-old female patient Dr. Minor'tony who underwent a total knee arthroplasty on Wednesday. She has also developed pulmonary edema, is being followed by the Medicine Team. She states she is much improved and has no complaints and is waiting on rehab placement which she states will be Wednesday. OBJECTIVE: She is a well-developed, well-nourished female. She is alert and cooperative with exam. Her knee wound is clean, dry, intact without sign of infection or drainage. Her calf is soft. She can flex-extend her toes. She has good early range of motion of her knee and her knee is stable to exam. Her leg is neurovascularly intact. Her hemoglobin is 10.8, her hematocrit is 32.5, her white count is 11,000. ASSESSMENT: Stable right total knee arthroplasty. PLAN: We will continue her current medical treatment and physical therapy. She will likely go to rehab on Wednesday. cc: MD Jelani Duron MD
[2019-01-07] MEDS: DESYREL PO SCH (21:13)
[2019-01-08] MEDS: TYLENOL PO SCH ×4 (02:46→20:40)
[2019-01-08] MEDS: OXY IR PO PRN ×5 (05:49→22:44)
[2019-01-08] MEDS: DUONEB (A & A) INH SCH ×5 (07:49→22:45)
--- NOTE | 2019-01-08 08:00 | ORTHOPAEDICS PROGRESS NOTE ---
DATE: 01/08/2019 SUBJECTIVE: Zahira Fregoso is a 63-year-old female who is status post right total knee arthroplasty by Dr. Minor on 01/03. She has no new complaints. OBJECTIVE: She is a well-developed, well-nourished female. She is alert and cooperative with exam. Her wound is clean, dry, intact. Her leg is neurovascularly intact. She has no sign of infection or deep venous thrombosis. ASSESSMENT: Stable right total knee. PLAN: She is planning on going to rehab on Wednesday. cc: MD Jelani Duron MD
[2019-01-08] MEDS: LIPITOR PO SCH (09:54)
[2019-01-08] MEDS: AVAPRO PO SCH (09:54)
[2019-01-08] MEDS: COLACE PO SCH ×2 (09:54→20:41)
[2019-01-08] MEDS: PRILOSEC PO SCH (09:54)
[2019-01-08] MEDS: CELEXA PO SCH (09:54)
[2019-01-08] MEDS: PLETAL PO SCH ×2 (09:54→20:41)
[2019-01-08] MEDS: LEVAQUIN PO SCH (09:54)
[2019-01-08] MEDS: NORVASC PO SCH ×2 (09:58→20:41)
[2019-01-08] MEDS: ASPIRIN PO SCH (10:00)
[2019-01-08] MEDS: LOVENOX SUBQ SCH (14:20)
--- NOTE | 2019-01-08 14:50 | PROGRESS NOTE ---
DATE: 01/08/2019 SUBJECTIVE: Today Ms. Fregoso referred to be doing a lot better. She had 2 family members at the bedside at the time of the encounter. OBJECTIVE: Vital signs: Blood pressure is now 158/71, pulse of 110, respirations 20, temperature 98.5 degrees. The patient was saturating 97% on room air. General: Ms. Fregoso is a 63-year- old female. She is in bed, no distress. HEENT: Mucosa is pink and moist. Anicteric. Acyanotic. Neck: Supple. Chest: Clear to auscultation. Cardiovascular: Regular rate and rhythm. A 2/6 murmur radiating to the neck is present. GI: Abdomen is soft, nontender. Bowel sounds present. Extremities: No pedal edema. FOREST OFFICER: Patient is awake, alert, and oriented. No focal neurological deficit. Musculoskeletal: The right knee wound looks well affronted. No bleeding. No drainage. Pulses are present and patient is neurovascularly intact. LAB: No lab work for this morning. ASSESSMENT: 1. Acute hypoxemic respiratory failure after knee surgery, resolved. 2. Enterobacter cloacae pneumonia. Patient is on p.o. Levaquin, to complete a total of 7 days. 3. Pulmonary edema after knee surgery. We think this was a combination of noncardiogenic and hypertensive induced diastolic heart failure. Pulmonary edema is resolved. 4. Hypertension. We have added amlodipine to her Avapro (irbesartan) for better blood pressure control. 5. Dyslipidemia. Will continue with statin. PLAN: So in general I think Ms. Fregoso is doing a lot better. She did 72 feet yesterday with physical therapy. She is not in any respiratory distress anymore. She is off oxygen therapy and her physical exam is completely reassuring. Ms Fregoso is still pending a rehab placement on Wednesday. cc: MD Jelani Dotson MD
[2019-01-08] MEDS: DESYREL PO SCH (20:41)
[2019-01-09] MEDS: OXY IR PO PRN ×5 (02:50→20:04)
[2019-01-09] MEDS: TYLENOL PO SCH ×4 (02:50→20:04)
[2019-01-09 06:24] LABS: HEMOGLOBIN 10.3 g/dL (12.0-16.0); MCH 29.6 PG (27-31); MCHC 32.2 g/dL (33-37); RBC 3.48 XMIL (4.2-5.4); RDW 13.7 % (11.5-14.5); WBC 10.86 X1000 (4.8-10.8)
[2019-01-09 06:25] LABS: BASO# 0.08 X1000 (0.0-0.2); BASO% 0.7 % (0.0-0.8); EOS# 0.45 X1000 (0.0-0.7); EOS% 4.1 % (0.0-10.0); IMM GRAN# 0.02 X1000 (0.0-0.04); IMM GRAN% 0.2 % (0.0-0.5); LYMPH# 1.98 X1000 (1.2-3.4); LYMPH% 18.2 % (20.5-51.1); MONO# 1.62 X1000 (0.11-0.59); MONO% 14.9 % (1.7-9.3); MPV 9.4 FL (7.4-10.4); NEUT# 6.71 X1000 (1.4-6.5); NEUT% 61.9 % (42.2-75.2); PLT 430 X1000 (130-400)
[2019-01-09 06:38] LABS: AGAP 10; ALBUMIN 3.5 g/dL (3.5-5.0); BUN 11 mg/dL (8-22); CALCIUM 9.1 mg/dL (8.8-10.2); CHLORIDE 96 mmol/L (98-107); COSMO 266; CREATININE 0.7 mg/dL (0.5-0.9); ESTIMATED GFR > 60; GLUCOSE 107 mg/dL (70-104); PHOSPHORUS 3.6 mg/dL (2.7-4.5); POTASSIUM 4.1 mmol/L (3.5-5.1); SODIUM 133 mmol/L (136-145); TCO2 27 mmol/L (25-35)
[2019-01-09] MEDS: DUONEB (A & A) INH SCH ×5 (07:26→22:47)
--- NOTE | 2019-01-09 07:48 | Diag Imaging Result Doc PS360 ---
EXAM: CHEST-1 VIEW INDICATION: SOB TECHNIQUE: One view COMPARISON: 01/05/2019 FINDINGS: Mild interstitial thickening bilaterally likely representing mild edema is approximately stable. No new consolidation is identified. Cardiac silhouette is stable. IMPRESSION: Approximately stable chest. Electronically signed by Jelani Rdz 01/09/2019 7:46 AM
[2019-01-09] MEDS: PLETAL PO SCH ×2 (09:23→20:03)
[2019-01-09] MEDS: PRILOSEC PO SCH (09:24)
[2019-01-09] MEDS: CELEXA PO SCH (09:24)
[2019-01-09] MEDS: AVAPRO PO SCH (09:24)
[2019-01-09] MEDS: ASPIRIN PO SCH (09:24)
[2019-01-09] MEDS: LEVAQUIN PO SCH (09:24)
[2019-01-09] MEDS: LIPITOR PO SCH (09:24)
[2019-01-09] MEDS: COLACE PO SCH ×2 (09:24→20:04)
[2019-01-09] MEDS: NORVASC PO SCH ×2 (09:25→20:04)
--- NOTE | 2019-01-09 12:32 | ORTHOPAEDICS PROGRESS NOTE ---
DATE: 01/09/2019 SUBJECTIVE: Zahira Fregoso is a 63-year-old female patient of Dr. Minor, who has a right total knee. She is going to rehabilitation tomorrow. Unfortunately she is sad this morning, understandably so, as her sister this morning in the ICU, and they told her about it when they woke her up this morning. OBJECTIVE: She is a well-developed, well-nourished female. She is alert and cooperative with the exam. Her wound is clean, dry, and intact. Her calf is soft, and her foot is neurovascularly intact. ASSESSMENT: Stable right total knee arthroplasty. PLAN: She will likely go to rehabilitation tomorrow. Dr. Minor will be back to see her in the morning, as well. cc: MD Jelani Duron MD
--- NOTE | 2019-01-09 13:58 | PROGRESS NOTE ---
DATE: 01/09/2019 SUBJECTIVE: This morning Ms. Fregoso refers to be doing a lot better; however, she felt sad because her sister passed yesterday in the ICU, but for her comorbidities, she feels okay. OBJECTIVELY: Her Current Vitals: Blood pressure is 111/52, pulse is 93, respirations 20, temperature 98.4 degrees, the patient is saturating 96% on room air. On general exam, Ms. Fregoso is a 63-year-old female. She is in bed. No distress. Mucosa is pink and moist. Anicteric. Acyanotic. Neck is supple. Chest was clear to auscultation. Cardiovascular: Regular rate and rhythm. A 2/6 murmur radiating to the neck. Gastrointestinal: Abdomen is soft, nontender. Extremities: No pedal edema. Central Nervous System: Patient is awake, alert, and oriented. Musculoskeletal: The right knee wound looks remarkably well affronted, no bleeding. The right lower extremity is neurovascularly intact. LABORATORY DATA: CBC is unremarkable. Chemistry is also reviewed; sodium is 133, the rest of chemistry is unremarkable. ASSESSMENT: 1. Acute hypoxemic respiratory failure after knee surgery, resolved. 2. Enterobacter cloacae pneumonia. Patient is currently on Levaquin to complete a total of 7 days. 3. Pulmonary edema after knee surgery, resolved. 4. Hypertension. 5. Dyslipidemia. In general, I think Ms. Fregoso is clinically stable. We are still pending a rehabilitation placement for her tomorrow. cc: MD Jelani Dotson MD [facility]
--- NOTE | 2019-01-09 14:59 | PULMONOLOGY PROGRESS NOTE ---
DATE: 01/09/2019 SUBJECTIVE: The patient is awake, alert, and conversant. She reports her sister in the ICU this morning. She denies cough, shortness of breath. She reports she is gaining strength. OBJECTIVE: Vital Signs: She has been afebrile for the last 24 hours. Blood pressure 111/52, heart rate 93, respiratory rate 20, oxygen saturation 96%. HEENT: Pupils are equal and reactive. Oropharynx appears clear. Neck: Supple. Chest: Reveals good air entry bilaterally without wheezing or rhonchi. Cardiac: S1-S2. Abdomen: Soft without hepatosplenomegaly. Extremities: Reveal ice pack device on the right knee. LABORATORIES: White blood count 10.86, hemoglobin 10.3, platelet count 430,000. Sodium 133, potassium 4.1, chloride 96, bicarbonate 27, BUN 11, creatinine 0.7. Chest x-ray reveals mild vascular prominence. IMPRESSION: A 63-year-old with 1. Acute pulmonary edema and pleural effusion associated with diastolic dysfunction. 2. Pneumonia with Enterobacter cloacae species identified on sputum. 3. Acute hypoxemic respiratory failure. 4. History of tobacco use. 5. Extensive peripheral vascular disease. DISCUSSION: A 63-year-old problems outlined above. She continues to rapidly improve. PLAN: 1. Continue bronchial hygiene. 2. Continue ambulation. 3. Complete antibiotics. 4. Anticipate discharge soon. cc: MD Jelani Anders MD
[2019-01-09] MEDS: LOVENOX SUBQ SCH (16:05)
[2019-01-09] MEDS: DESYREL PO SCH (20:05)
[2019-01-10] MEDS: OXY IR PO PRN ×6 (01:27→23:31)
[2019-01-10] MEDS: TYLENOL PO SCH ×4 (01:28→21:47)
[2019-01-10] MEDS: DUONEB (A & A) INH SCH ×5 (08:14→22:47)
[2019-01-10] MEDS: NORVASC PO SCH ×2 (09:05→21:47)
[2019-01-10] MEDS: LIPITOR PO SCH (09:07)
[2019-01-10] MEDS: PRILOSEC PO SCH (09:07)
[2019-01-10] MEDS: AVAPRO PO SCH (09:08)
[2019-01-10] MEDS: LEVAQUIN PO SCH (09:08)
[2019-01-10] MEDS: PLETAL PO SCH ×2 (09:09→21:47)
[2019-01-10] MEDS: COLACE PO SCH ×2 (09:09→21:48)
[2019-01-10] MEDS: CELEXA PO SCH (09:10)
[2019-01-10] MEDS: ASPIRIN PO SCH (09:11)
--- NOTE | 2019-01-10 13:29 | PROGRESS NOTE ---
DATE: 01/10/2019 SUBJECTIVE: Today Ms. Fregoso refers to be doing fairly okay. No new complaints. We just awaiting for approval for her to go to rehab. OBJECTIVE: Vital Signs: Vitals are stable. Blood pressure is 123/46, pulse of 89, respirations 14, temperature 98.5 degrees. The patient is saturating 100% on 2 liters. General: Ms. Fregoso is a 63-year-old female. She is in bed in no distress. HEENT: Mucosa is pink and moist. Anicteric. Acyanotic. Neck: Neck is supple. Chest: Chest was clear to auscultation. No crepitations. No rhonchi. Cardiovascular: Regular rate and rhythm. There is a 2/6 mid systolic murmur in the right base radiating to the neck. MANAGER CUSTOMER SERVICE: Patient is awake, alert, and oriented. Musculoskeletal: The right knee wound looks clean. LABORATORY DATA: No lab work for this morning. ASSESSMENT: 1. Acute hypoxemic respiratory failure after knee surgery resolved. 2. Enterobacter cloacae pneumonia. The patient is on Levaquin. Today is 3 for a total of 7 days. 3. Pulmonary edema after knee surgery secondary to diastolic heart failure resolved. 4. Hypertension controlled. 5. Dyslipidemia. PLAN: So in general Ms. Fregoso seems to be doing a whole lot better. We are going to continue with the Levaquin. End of therapy will be 01/12/2019. We will continue also her other medication for her comorbidities. We are pending rehab approvement for Ms Fregoso. cc: MD Jelani Dotson MD
[2019-01-10] MEDS ORDERED: DIFLUCAN PO ONE (15:06)
[2019-01-10] MEDS: LOVENOX SUBQ SCH (15:24)
[2019-01-10] MEDS: MYCOSTATIN SUSP PO SCH ×2 (17:01→21:51)
--- NOTE | 2019-01-10 19:01 | DISCHARGE SUMMARY ---
ADMISSION DATE: 01/03/2019 DISCHARGE DATE: 01/11/2019 PRINCIPAL PROCEDURE: Right total hip arthroplasty. HOSPITAL COURSE: This is a 63-year-old female that came to the hospital on 01/03/2019 for a right total knee arthroplasty. Ware went to the operating room in satisfactory condition. A right knee replacement was performed. The patient was transferred to the postop recovery unit without complications. She was then transferred to the surgical floor. While she was on the surgical floor the patient did develop some shortness of breath and difficulty breathing and so the patient was transferred to the ICU. She was evaluated by the hospitalist and determined that she had an episode of acute hypoxemic respiratory failure after her knee surgery. They thought it might be some pulmonary edema with some possible aspiration pneumonia. After a few days in the ICU, the patient was stabilized and transferred back to the surgical floor. The patient did well there. She did well walking with Physical Therapy and has not complained of any more shortness of breath or chest pain. There is good sensation to right lower extremity. There is no drainage or redness at this time. There is negative homans signs. There is no pain with calf squeeze. The patient was felt to be ready to be discharged on 01/11/2019. PAST MEDICAL HISTORY: Includes hypertension, psoriasis, and degenerative joint disease. ALLERGIES: Include erythromycin, Bactrim, Flagyl, metal, and clindamycin. MEDICATIONS: Include Lipitor 40 mg daily, Celebrex 200 mg daily, cilostazol 100 mg b.i.d., Celexa 40 mg daily, omeprazole 20 mg daily, Tramadol 50 mg b.i.d. p.r.n. pain, and trazodone 50 mg at bedtime. DISPOSITION: The patient is going to be discharged to a rehab facility tomorrow. FOLLOWUP: She is to follow up with Dr. Minor in 1 week for a recheck on her wound and refills for her prescriptions. DISCHARGE INSTRUCTIONS: Discharged to rehab at this time. Prescriptions were written for trazodone 50 mg at bedtime, Celexa 40 mg daily, Nystatin suspension swish and spit 10 mL t.i.d. x10 days, doxycycline 100 mg b.i.d. x10 days, [place] 10 1 tablet q. 4 p.r.n. pain, Diflucan 150 p.o. now and may repeat in 3 days, and aspirin 325 mg t.i.d. for DVT prophylaxis. She is also being treated for her aspiration pneumonia which has dramatically improved. She can call our office with any questions or concerns. Dictated by MARK Wakefield for Jelani Minor MD cc: MARK Wakefield MD [facility]
[2019-01-10] MEDS: DESYREL PO SCH (21:47)
[2019-01-11] MEDS: TYLENOL PO SCH ×2 (03:11→09:15)
[2019-01-11] MEDS: OXY IR PO PRN ×3 (04:43→13:05)
[2019-01-11] MEDS: DUONEB (A & A) INH SCH ×2 (07:45→11:20)
[2019-01-11 08:44] VITALS: BP 114/56
[2019-01-11] MEDS: NORVASC PO SCH (09:14)
[2019-01-11] MEDS: AVAPRO PO SCH (09:14)
[2019-01-11] MEDS: LIPITOR PO SCH (09:15)
[2019-01-11] MEDS: PRILOSEC PO SCH (09:15)
[2019-01-11] MEDS: COLACE PO SCH (09:15)
[2019-01-11] MEDS: MYCOSTATIN SUSP PO SCH (09:15)
[2019-01-11] MEDS: LEVAQUIN PO SCH (09:15)
[2019-01-11] MEDS: PLETAL PO SCH (09:15)
[2019-01-11] MEDS: CELEXA PO SCH (09:15)
[2019-01-11] MEDS: ASPIRIN PO SCH (09:15)
[2019-01-11] MEDS ORDERED: CELEBREX PO SCH (12:30)
--- NOTE | 2019-01-11 19:25 | PROGRESS NOTE ---
DATE: 01/11/2019 SUBJECTIVE: This morning Ms. Fregoso refers to be doing fairly okay. Denies any new complaints. Physical exam was completely unremarkable. She is stable. She has been approved to go to rehab. We do agree with her going to rehab. OBJECTIVE: Vital Signs: Blood pressure was 114/56, pulse of 99, respirations 24, and temperature 99.1 degrees. The patient was saturating 96% on room air at the time of the discharge. There was not any new laboratory data. ASSESSMENT AND PLAN: We reviewed her medication list, and we are okay with the decision for her to go to rehab. Please refer to the details of her discharge summary which was dictated by the orthopedic team. cc: MD Jelani Dotson MD
== END 2019-01-11 13:15 | DRG 469 ==
LOC: 4N 08:28 → OR 08:28 → SUATTDRO 09:53 → OBSVTOIN 09:53 → ICU 01-04 11:13 → 4N 01-05 15:26
PROVIDERS: ADMIT Orthopaedic Surgery Adult Reconstructive Orthopaedic Surgery; ATTEND Internal Medicine

== ENCOUNTER 2019-07-02 12:38 | Inpatient (IN) ==
[2019-07-02] MEDS ORDERED: NS 1,000 ML IV ONE (13:10)
[2019-07-02 13:21] LABS: BASO# 0.08 X1000 (0.0-0.2); BASO% 0.6 % (0.0-0.8); EOS# 0.17 X1000 (0.0-0.7); EOS% 1.4 % (0.0-10.0); HEMATOCRIT 31.2 % (37.0-47.0); HEMOGLOBIN 9.5 g/dL (12.0-16.0); IMM GRAN# 0.05 X1000 (0.0-0.04); IMM GRAN% 0.4 % (0.0-0.5); LYMPH# 1.22 X1000 (1.2-3.4); LYMPH% 9.7 % (20.5-51.1); MCH 25.1 PG (27-31); MCHC 30.4 g/dL (33-37); MCV 82.3 FL (81-99); MPV 9.6 FL (7.4-10.4); NEUT# 10.04 X1000 (1.4-6.5); NEUT% 79.9 % (42.2-75.2); PLT 498 X1000 (130-400); RBC 3.79 XMIL (4.2-5.4); WBC 12.56 X1000 (4.8-10.8)
[2019-07-02 13:33] LABS: INR 1.11; PROTIME 14.5 Seconds (11.0-16.0)
[2019-07-02 13:34] LABS: PTT 26.4 Seconds (22.3-41.8)
--- NOTE | 2019-07-02 13:42 | Diag Imaging Result Doc PS360 ---
EXAM: CHEST-1 VIEW - 07/02/2019 HISTORY: sepsis protocol TECHNIQUE: Portable chest COMPARISON: 01/09/2019 FINDINGS: There is mild cardiomegaly. There are generalized interstitial infiltrates or edema. There are small bilateral pleural effusions. There is no evidence of pneumothorax. IMPRESSION: Findings which are suggestive of pulmonary edema/congestive heart failure. Electronically signed by Sang Apodaca 07/02/2019 1:39 PM
[2019-07-02 13:52] LABS: ALBUMIN 3.4 g/dL (3.5-5.0); CALCIUM 11.3 mg/dL (8.8-10.2); POTASSIUM 3.9 mmol/L (3.5-5.1); TOTAL BILIRUBIN 0.38 mg/dL (0.20-1.00); TOTAL PROTEIN 6.8 g/dL (6.3-8.3)
[2019-07-02] MEDS ORDERED: BUMEX IV ONE (14:17)
[2019-07-02 14:23] LABS: URINE SOURCE CLEAN CATCH
[2019-07-02 14:26] LABS: BILIRUBIN URINE NEGATIVE (NEGATIVE); BLOOD URINE NEGATIVE (NEGATIVE); COLOR YELLOW; GLUCOSE URINE NEGATIVE (NEGATIVE); KETONE URINE NEGATIVE (NEGATIVE); LEUKOCYTES URINE TRACE (NEGATIVE); NITRITE URINE NEGATIVE (NEGATIVE); PROTEIN URINE 30 mg/dL (NEGATIVE); SP GRAVITY URINE 1.016; TURBIDITY URINE CLEAR (CLEAR); UROBILINOGEN URINE NORMAL (NORMAL)
[2019-07-02 14:27] LABS: UR EPITHELIAL CELLS <10 /HPF (<10); URINE BACTERIA NEGATIVE /HPF; URINE RBC <10 /HPF (<10); URINE WBC <10 /HPF (<10)
--- NOTE | 2019-07-02 16:03 | PROVIDER DOCUMENTATION ---
This chart was entered by Quan Martinez Scribe, acting as scribe for Curly Bar DO. HPI-General Adult - General Chief Complaint: Shortness of Breath Stated Complaint: DIFFICULTY BREATHING Time Seen by Provider: 07/02/19 13:00 Source: patient, family Allergies/Adverse Reactions: Patient Allergies Allergy/AdvReac Type Severity Reaction Status Date / Time azithromycin Allergy Severe DIARRHEA Verified 05/04/19 14:11 latex Allergy Severe RASH Verified 05/04/19 14:11 clindamycin Allergy Verified 05/09/19 09:20 erythromycin base Allergy Verified 05/09/19 09:18 levofloxacin [From Levaquin] Allergy SWELLING Verified 05/04/19 14:11 metronidazole [From Flagyl] Allergy SWELLING Verified 05/04/19 14:11 sulfamethoxazole Allergy Verified 05/09/19 09:19 [From Septra] trimethoprim [From Septra] Allergy Verified 05/09/19 09:19 metal Allergy Severe RASH Uncoded 05/04/19 14:11 mycin Allergy SWELLING Uncoded 05/04/19 14:11 AND JOINT ACHES Home Medications: Home Medication List Medication Instructions Recorded Confirmed Last Taken Type Celecoxib [Celebrex] 200 mg PO BID 01/12/12 07/02/19 05/08/19 15:00 History Omeprazole 20 mg PO DAILY 05/24/12 07/02/19 05/08/19 07:00 History ATORVAstatin [Lipitor] 40 mg PO DAILY 11/02/13 07/02/19 05/08/19 07:00 History Cilostazol 100 mg PO BID 12/26/18 07/02/19 05/08/19 15:00 History Irbesartan [Avapro] 150 mg PO DAILY 12/26/18 07/02/19 05/08/19 07:00 History Aspirin 325 mg PO DAILY #60 tab 01/11/19 07/02/19 05/04/19 07:00 Rx Citalopram [Celexa] 40 mg PO DAILY #30 tab 01/11/19 07/02/19 05/08/19 07:00 Rx Trazodone HCl 50 mg PO QHS 05/04/19 07/02/19 05/08/19 21:00 History Hydrocodone/Acetaminophen [[place] 1 ea PO Q4-6H PRN PRN #30 tab 05/09/19 07/02/19 Unknown Rx 10-325 Tablet] Ondansetron HCl [Zofran] 4 mg PO Q8HR PRN #30 tab 05/09/19 07/02/19 Unknown Rx - History of Present Illness -Gen Adult Nature of Presenting Problems: 64 yof presents to the ed w/ c/o SOB,Cough. pt states SOB onset yesterday. pt states "when cough pain starts across upper back." pt states being admitted in January after knee replacement surgery for 'to much fluid admitted to ICU had Echo resulted as good same result w/ Echo in May." pt states OX in ed has helped SOB. pt states put on Symbicort for SOB and no help. Location of Pain/Injury: reports: none Pain Radiation: reports: no radiation Quality of Pain: reports: none Severity: reports: mild Onset/Duration: reports: 24 hours ago Timing: reports: still present Context/Activities at Onset: reports: none Modifying Factors: improves with: nothing Associated Symptoms: reports: back/neck pain (across upper back when coughing), cough, shortness of breath. denies: fever/chills, nausea, rash, vomiting Similar Symptoms Previously?: No Recently seen or treated by another doctor?: No Review of Systems - Adult - REVIEW OF SYSTEMS - ADULT Constitutional: denies: chills, fever Eyes: reports: no symptoms reported Ears, Nose, Mouth & Throat: reports: no symptoms reported Cardiovascular: reports: no symptoms reported Respiratory: reports: see HPI, cough, shortness of breath. denies: wheezing Gastrointestinal: denies: abdominal pain, diarrhea, nausea, vomiting Genitourinary: reports: no symptoms reported Musculoskeletal: reports: see HPI, back pain. denies: muscle weakness, neck pain Integumentary: denies: hives, rash Neurological: reports: no symptoms reported Psychiatric: reports: no symptoms reported Endocrine: reports: no symptoms reported Hematologic/Lymphatic: reports: no symptoms reported Allergic/Immunologic: reports: no symptoms reported All Other Systems: Reviewed and Negative Past History - Adult - PAST MEDICAL HISTORY-ADULT Review of Records: reports: Old Records Reviewed, Nursing Assessment Review, Medications Reviewed, Social history reviewed & non-contributory. Major Childhood Illnesses: reports: denies history Cardiovascular: reports: HTN, hyperlipidemia Respiratory: reports: asthma Gastrointestinal: reports: GERD, other (diverticulitis) Obstetrical/Gynecological: reports: denies history Genitourinary: reports: denies history Musculoskeletal: reports: denies history Neurological: reports: denies history Psychiatric: reports: denies history Endocrine/Immune: reports: denies history Other Conditions: reports: denies history - PRIOR SURGERIES/PROCEDURES Surgical/Procedure History: reports: hernia repair, other (colon resection, total hip replacement, total knee replacememt) - PRIOR HOSPITALIZATIONS Prior Hospitalizations: reports: for other non-related, for similar symptoms - IMMUNIZATION STATUS Childhood Immunizations: See Nurse Assessment Flu Vaccine: See Nurse Assessment - FAMILY HISTORY Family History: reviewed, not pertinent - SOCIAL HISTORY Smoking: quit greater than 1 year, cigarettes Physical Exam-General - PHYSICAL EXAM-ADULT Initial Vital Signs Reviewed: Yes - CONSTITUTIONAL General Appearance: appears well, alert, mild distress - RESPIRATORY Respiratory: normal breath sounds, rales (bilaterlly) - CARDIOVASCULAR Cardiovascular: regular rate, rhythm, tachycardia (107) - CHEST (BREASTS) Chest/Breast: deferred - GASTROINTESTINAL (ABDOMEN) Abdominal Exam: normal bowel sounds, non tender, soft - GENITOURINARY Female Genitalia/Pelvic Exam: deferred Rectal Exam: deferred Hemoccult Exam: deferred - MUSCULOSKELETAL Extremity: normal inspection - SKIN Integumentary: normal color - NEUROLOGIC Neurologic: grossly normal - PSYCHIATRIC Psych/Mental Status: normal mood/affect, normal thought content, normal thought process, oriented x 3 Progress - PLAN OF CARE/RESULTS Progress/Plan/Lab Results: Vital Signs - 8 hr 07/02/19 12:55 Temperature 97.9 F Pulse Rate 107 H Respiratory Rate 22 Blood Pressure 151/86 O2 Sat by Pulse Oximetry 94 L Laboratory Results - last 24 hr 07/02/19 07/02/19 07/02/19 13:12 13:12 13:12 WBC RBC Hgb Hct MCV MCH MCHC RDW Std Deviation Plt Count MPV Immature Gran % (Auto) Neut % (Auto) Lymph % (Auto) [place] % (Auto) Eos % (Auto) Baso % (Auto) Immature Gran # (Auto) Neut # (Auto) Lymph # (Auto) [place] # (Auto) Eos # (Auto) Baso # (Auto) PT INR PTT (Actin FS) Sodium 142 Potassium 3.9 Chloride 103 Carbon Dioxide 25 Anion Gap 14 BUN 14 Creatinine 1.0 H Estimated GFR/1.73 m2 55 BUN/Creatinine Ratio 14 Glucose 117 H Calculated Osmolality 285 Calcium 11.3 H Total Bilirubin 0.38 AST 29 ALT 13 Alkaline Phosphatase 167 H Creatine Kinase 84 Troponin T High Sens 80 H Total Protein 6.8 Albumin 3.4 L Globulin 3.4 Albumin/Globulin Ratio 1.0 Plasma Lactate 1.3 07/02/19 07/02/19 13:12 13:12 WBC 12.56 H RBC 3.79 L Hgb 9.5 L Hct 31.2 L MCV 82.3 MCH 25.1 L MCHC 30.4 L RDW Std Deviation 16.0 H Plt Count 498 H MPV 9.6 Immature Gran % (Auto) 0.4 Neut % (Auto) 79.9 H Lymph % (Auto) 9.7 L [place] % (Auto) 8.0 Eos % (Auto) 1.4 Baso % (Auto) 0.6 Immature Gran # (Auto) 0.05 H Neut # (Auto) 10.04 H Lymph # (Auto) 1.22 [place] # (Auto) 1.00 H Eos # (Auto) 0.17 Baso # (Auto) 0.08 PT 14.5 INR 1.11 PTT (Actin FS) 26.4 Sodium Potassium Chloride Carbon Dioxide Anion Gap BUN Creatinine Estimated GFR/1.73 m2 BUN/Creatinine Ratio Glucose Calculated Osmolality Calcium Total Bilirubin AST ALT Alkaline Phosphatase Creatine Kinase Troponin T High Sens Total Protein Albumin Globulin Albumin/Globulin Ratio Plasma Lactate Orders Category Date Time Status Cardiac Monitoring DIRECTED Care 07/02/19 12:58 Active IV Insertion ORDERED Care 07/02/19 12:58 Completed Notify MD of + Sepsis Screen NOW Care 07/02/19 12:58 Active Notify Physician As Ordered Care 07/02/19 12:58 Active CHEST-1 VIEW [RAD] Stat Exams 07/02/19 12:58 Completed BLOOD CULTURE [BLDCUL] Stat Lab 07/02/19 13:48 Ordered CBC WITH DIFF [HEME] Stat Lab 07/02/19 13:12 Completed CK PROFILE [SP CHEM] Stat Lab 07/02/19 13:12 Completed COMPREHENSIVE METABOLIC PANEL [CHEM] Stat Lab 07/02/19 13:12 Completed LACTATE, PLASMA [CHEM] Lab 07/02/19 16:00 Uncollected LACTATE, PLASMA [CHEM] Lab 07/02/19 19:00 Uncollected LACTATE, PLASMA [CHEM] Q3H Lab 07/02/19 13:12 Completed PROTIME WITH INR [COAG] Stat Lab 07/02/19 13:12 Completed PTT [COAG] Stat Lab 07/02/19 13:12 Completed TROPONIN T HIGH SENSITIVITY Stat Lab 07/02/19 13:12 Completed URINALYSIS W/POSS RFLX CULT [URINALYSIS] Stat Lab 07/02/19 12:58 Uncollected 0.9% Sodium Chloride Inj [Ns] 1,000 ml Med 07/02/19 13:10 Active IV 999 mls/hr Oxygen Device Stat Oth 07/02/19 12:58 Active Result Diagrams: 07/02/19 13:12 07/02/19 13:12 - REASSESSMENT Reassessment #1 Time Reassessed: 15:52 Status: worsening Reassessment Comment: Patient got up to potty chair and became acutely sob and diaphoretic. Bipa - EKG 1 Time of EKG reading by physician:: 13:05 EKG Read and Signed by:: Curly aBr EKG Interpretation (*Must complete 3 of following elements*): Abnormal Rate: 105 Rhythm: sinus tachycardia w/ premature atrial complexes Paul: normal QRS: normal DE Interval: normal ST Wave: normal 2 Time of EKG reading by physician:: 15:44 EKG Read and Signed by:: Curly Bar EKG Interpretation (*Must complete 3 of following elements*): Abnormal Rate: 119 Rhythm: sinus tachycardia Paul: normal QRS: normal DE Interval: normal ST Wave: normal Comments: possible Lt atrial enlargement/nonspecific ST and T wave abnormality - XRAY 1 XRAY Study: Chest Impression: See EMR Report (EXAM: CHEST-1 VIEW - 07/02/2019 HISTORY: sepsis protocol TECHNIQUE: Portable chest COMPARISON: 01/09/2019 FINDINGS: There is mild cardiomegaly. There are generalized interstitial infiltrates or edema. There are small bilateral pleural effusions. There is no evidence of pneumothorax. IMPRESSION: Findings which are suggestive of pulmonary edema/congestive heart failure. Electronically signed by Sang Apodaca 07/02/2019 1:39 PM 07/02/19 [id number] Interpreting Physician: Sang Apodaca MD Dictated Date/Time: 07/02/19 1782 cc: Curly Bar DO; Adiel Arana MD) - CONSULTS/PCP/HOSPITALIST Notification #1 *Consult/PCP/Hospitalist*: consult w/ Dr. bañuelos Time Discussed: 15:35 Consult Disposition: Admit Departure - Departure Date of Disposition Decision: 07/02/19 Time of Disposition Decision: 16:02 DIAGNOSIS: CHF (congestive heart failure) Qualifiers: Heart failure type: systolic Heart failure chronicity: acute Qualified Code(s): I50.21 - Acute systolic (congestive) heart failure Disposition: ADMITTED INPATIENT 09 Certified Medical Emergency: Emergent Condition: Fair Referrals and Follow-Ups: Adiel Arana MD [Primary Care Provider] - - Critical Care Note This patient required my direct & personal management of CC.: No Attestation - Physician/ HARSH Attestation Patient care was provided by Advanced Practice Provider:: No The physician spent face to face time with patient:: Yes Advanced Practice Provider documentation review:: Supervising physician onsite and consulted in the evaluation and care of this patient. The physician did have a face to face encounter with the patient. This chart was documented by the indicated scribe, (Quan Martinez, Raj) and accurately reflects the services I performed and decisions made by me, Curly May DO, as attested by the provider's signature.
--- NOTE | 2019-07-02 17:39 | HISTORY AND PHYSICAL ---
ADDENDUM: I have seen and examined Ms. Fregoso today in the ER. The daughter and the son were both at the bedside at the time of the encounter. Ms. Fregoso presented to the ER today because of shortness of breath which has been going on since yesterday. She said early this morning she just felt she could not take any breath. Upon presenting to the emergency room, she was found to have O2 saturation of 94% on Venturi mask. Her vitals, otherwise, are stable except slight tachycardic. Of note, Ms. Fregoso has hypertension, dyslipidemia, osteoarthritis, and recently underwent a right knee arthroplasty. PHYSICAL EXAMINATION: VITAL SIGNS: Current vitals blood pressure is 166/76, pulse of 101, respirations 27, temperature 97.9 degrees. GENERAL: Ms. Fregoso is currently under the BiPAP synchronizing well. NECK: Neck is supple. There is positive JVD. CHEST: Air entry is bilaterally reduced. There is diffuse end inspiratory crackles. CARDIOVASCULAR: Tachycardic but no murmurs, no rubs, no gallops. EXTREMITIES: About 2+ pedal edema. GI: Abdomen is soft. There is an old surgical scar in the mid anterior wall. There is a small ulceration in the middle of this scar with inflammatory margins. The base is clean. 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 LABORATORY DATA: Has been reviewed. The patient's WBC is slightly elevated. He also has normocytic anemia. Platelet count is normal. Chemistry is unremarkable. Creatinine is 1.0. Pro B is still pending. A chest x-ray, which was done, shows findings suggestive of pulmonary edema/congestive heart failure. An EKG has been ordered, but has not been done at the time of the encounter. ASSESSMENT: 1. Acute hypoxemic respiratory failure. The patient is currently on the BiPAP. We are going to continue to titrate as needed. 2. Diffuse pulmonary infiltrate concerning for pulmonary edema due to congestive heart failure. However, an underlying or superimposed infection cannot be entirely ruled out. We are going to get a CT scan of the chest without contrast to have a better view of the lung anatomy and also rule out other possible etiologies. We will also get an echocardiogram to follow up on her ejection fraction. 3. Suspected congestive heart failure. The patient does have an echocardiogram, December last year, which showed an ejection fraction of 55%. We are going to repeat this tomorrow and go from there. We will also get will also get Cardiology to evaluate him. Depending on the EKG, we will start her on diuretic therapy and her home medication including the irbesartan, which is an ARB, for blood pressure as well as for cardiac remodeling. We will withhold the Celebrex, which she has as part of her home medication. 4. Hypertension. We will continue with home medicine. 5. Leukocytosis. This could potentially be reactive; however, as I said, if there is a superimposed lower respiratory tract infection that can also explain it. We will get flu studies done to rule out acute influenza and we will also get a CT scan as dictated above. Depending on the result, we will start her on antibiotics. Please refer to the details of the history and physical that has been dictated by the DIRECTOR OF HOTEL. I have discussed the plan with her. I have also discussed my findings and the plan with Ms. Fregoso as well as with the son and the daughter who were both at the bedside at the time of the encounter. cc: Silverio Byrne MD
--- NOTE | 2019-07-02 18:05 | HISTORY AND PHYSICAL ---
PRIMARY CARE PROVIDER: Adiel Arana MD CHIEF COMPLAINT: Shortness of breath. HISTORY OF PRESENT ILLNESS: Ms. Fregoso is a 64-year-old female who carries a past medical history of hypertension, cirrhosis, depression, GERD, and diastolic heart failure, who did not have any knowledge of heart failure, morbid obesity, hyperlipidemia, Mayer's esophagus, and diverticulosis who came to the ED complaining of 2 days' worth of shortness of breath, productive cough with whitish sputum, wheezing today, bilateral lower extremity pitting edema for 1 week. She adamantly denies any cardiac type chest pain. No headache. No fever. No chills. No nausea, no vomiting, no diarrhea. No dysuria. No hematuria. No abdominal pain. Per EMS, her initial O2 saturation was 86% on room air. She was placed on a non-rebreather then a Ventimask on 15 L. Her O2 came up to 94%. She was initially going to be worked up for sepsis. She stated no COPD or congestive heart failure history. However, after reviewing her chest x-ray, it showed findings suggestive of pulmonary edema and congestive heart failure. Her IV fluids were stopped. Her proBNP is 3112, a slight white count at 12. First lactate was negative. She was then given a dose of Bumex. Slight elevation in her troponins at 80 and then 100. She does have bilateral lower extremity pitting edema, crackles in the bilateral bases. She did have an episode when she got up to use the bedside commode of worsening hypoxemia and was placed on BiPAP. She will be admitted to [facility] and continue with further treatment and evaluation with Cardiology consult. PAST MEDICAL HISTORY: Per HPI. PAST SURGICAL HISTORY: Left knee replacement. Right total knee. open reduction and internal fixation of her right patella. Low anterior colon resection, secondary to complicated diverticulitis. Incarcerated ventral hernia with small bowel obstruction with exploratory laparotomy with lysis of adhesions. EGD that found Mayer's esophagus gastritis. She appears to have some plate and screws to her left upper arm on chest x-ray. FAMILY HISTORY: Reviewed and noncontributory. SOCIAL HISTORY: She is a former smoker of 30+ years. No alcohol or illicit drug use. ALLERGIES: Azithromycin, latex, Flagyl, metal and Niacin. HOME MEDICATIONS: 1. Trazodone 50 mg p.o. at bedtime. 2. Avapro 150 mg p.o. daily. 3. Celebrex 200 mg p.o. b.i.d. 4. Lipitor 40 mg p.o. daily. 5. Prilosec 20 mg p.o. daily. 6. Zofran 4 mg p.o. q.8 hours. 7. Aspirin 325 mg p.o. daily. 8. Celexa 40 mg p.o. daily. 9. [place] 1 each p.o. q.4 q.6 hours p.r.n.; however, this is a medication for her knee surgery back in April. 10. Cilostazol 100 mg p.o. b.i.d. REVIEW OF SYSTEMS: Twelve-point review of systems completely negative except for those mentioned in HPI. PHYSICAL EXAMINATION: VITAL SIGNS: Temperature was 97.9 degrees, heart rate 91, respirations 28, blood pressure 142/87, O2 is 100% on BiPAP. GENERAL: Ms. Fregoso is a 64-year-old female who is sitting up in the stretcher on BiPAP in no acute distress. HEENT: Atraumatic, normocephalic. PERRL. NECK: Supple, trachea midline. CARDIOVASCULAR: S1, S2 appreciated. No murmurs, gallops, or rubs noted. JVD noted. Bilateral lower extremities with 1 to 2+ pitting edema. Bilateral pedal pulses are palpable. Radial pulses are bounding. PULMONARY: No wheezes. She does have bilateral diffuse crackles. ABDOMEN: Soft, nontender, nondistended. Positive bowel sounds 4 quadrants. EXTREMITIES: Moves all extremities well. NEUROLOGIC: No focal deficits noted. She is awake, alert, oriented. DIAGNOSTIC DATA: Chest x-ray findings are suggestive of pulmonary edema congestive heart failure. EKG is pending. CT of the thorax is pending. Flu swab pending. LABORATORY DATA: White count 12, hemoglobin 9, hematocrit 31, platelet count is 498,000. Sodium 142, potassium 3.9, BUN 14, creatinine 1.0, blood glucose is 117, alkaline phosphatase 167. First troponin is 80, second troponin is 100. First CK is 84 and second is 98. ProBNP is 3112. Albumin is 3.4. Urinalysis is negative. ASSESSMENT AND PLAN: 1. Acute respiratory failure secondary to hypoxemia. The patient was initially on Ventimask. She got up to use the restroom and had to be placed on BiPAP secondary to pulmonary edema and/or congestive heart failure. She is oxygenating well now on BiPAP. 2. Acute diastolic congestive heart failure exacerbation. Chest x-ray shows pulmonary edema and/or congestive heart failure. She was given a dose of Bumex in the ED. The patient was not aware of any heart failure. She did have a last echo in December 2018 secondary to pulmonary edema and/or congestive heart failure with some underlying pneumonia at that time. After surgery with EF of 55%. We will continue her Avapro. Recheck her proBNP in the a.m. Continue with b.i.d. Lasix. Strict intake and output, daily weight, consult Cardiology. Repeat a chest x-ray in the a.m. 3. Mild leukocytosis. The patient does not report any fever, however, she does report a productive cough. We are getting a CT of the chest to rule out anything infectious. She had 2 negative lactates. 4. Normocytic anemia, stable. 5. Mildly elevated troponins with normal CKs. We will continue to trend. She is adamantly denying any type of chest pain. Again, we are checking a CT of the chest to rule out any pneumonia, given her hypoxia. 6. Hypertension. Continue home medications. 7. Hyperlipidemia. Continue statin. 8. Gastroesophageal reflux disease and Mayer's esophagus. Continue proton pump inhibitor. Further recommendations to follow physician evaluation, laboratory and diagnostic data. Dictated by MARK Diego for Silverio Byrne MD cc: MD JOSE Dotson
[2019-07-02] MEDS: LASIX IV SCH (18:14)
--- NOTE | 2019-07-02 19:16 | Diag Imaging Result Doc PS360 ---
EXAM: CT THORAX W/O CONTRAST - 07/02/2019 HISTORY: Dyspnea TECHNIQUE: CT thorax without contrast. No contrast administered per request the referring provider. COMPARISON: 07/02/2019 view chest 01/04/2019 CT angiogram pulmonary arteries FINDINGS: Heart size appears borderline enlarged. There are medium bilateral pleural effusions with adjacent dependent/compressive atelectasis. There is ill-defined infiltrate or edema at the superior right upper lobe. There are mild emphysematous changes. There is no evidence of pneumothorax. There are mildly prominent mediastinal lymph nodes, which may be reactive. There are sclerotic calcifications, including coronary artery calcifications noted. IMPRESSION: Medium bilateral pleural effusions with adjacent dependent/compressive atelectasis. Mild infiltrate or edema at right upper lobe. Mild emphysematous changes. Atherosclerotic calcifications, including coronary artery calcifications, noted. This exam was performed using automated exposure control, adjustment of mA or kV according to patient size, and/or use of iterative reconstruction technique. Electronically signed by Sang Apodaca 07/02/2019 7:14 PM
[2019-07-02] MEDS ORDERED: ROCEPHIN 1 GM in NS 50 ML IV ONE (19:59)
[2019-07-02] MEDS: DOXYCYCLINE 100 MG in NS 250 ML IV SCH (21:46)
--- NOTE | 2019-07-03 01:48 | EKG Report ---
Test Performed on : 07/03/2019 01:39:42 AM Test Reason : Elevated Troponin Blood Pressure : / mmHG Vent. Rate : 080 BPM Atrial Rate : 080 BPM P-R Int : 152 ms QRS Dur : 088 ms QT Int : 386 ms P-R-T Axes : 064 039 035 degrees QTc Int : 445 ms Normal sinus rhythm. Nonspecific ST and T wave abnormality Abnormal ECG When compared with ECG of 02-JUL-2019 15:44, (Unconfirmed) Vent. rate has decreased BY 39 BPM Confirmed by Sarah Cox MD ([id number]) on 07/03/2019 5:30:29 PM
[2019-07-03] MEDS: LASIX IV SCH ×2 (05:14→17:28)
[2019-07-03] MEDS: LOVENOX SUBQ SCH ×2 (06:28→17:32)
--- NOTE | 2019-07-03 07:29 | Diag Imaging Result Doc PS360 ---
CHEST-PORTABLE - 07/03/2019 INDICATION: CHF, hypoxia COMPARISON: 07/02/2019 FINDINGS: Stable cardiomegaly and pulmonary vascular congestion. Stable diffuse bilateral interstitial infiltrates/edema. No large pleural effusion. IMPRESSION: Congestive heart failure. No change from prior. Electronically signed by Jagdish Reis 07/03/2019 7:27 AM
--- NOTE | 2019-07-03 07:45 | EKG Report ---
Test Performed on : 07/03/2019 06:42:49 AM Test Reason : Heart Failure Admission Blood Pressure : / mmHG Vent. Rate : 081 BPM Atrial Rate : 081 BPM P-R Int : 000 ms QRS Dur : 090 ms QT Int : 396 ms P-R-T Axes : 054 042 017 degrees QTc Int : 460 ms Critical Test Result: AV Block Sinus rhythm. with 2nd degree AV block ([place] I). with occasional premature ventricular complexes. Nonspecific ST and T wave abnormality Abnormal ECG When compared with ECG of 03-JUL-2019 01:39, (Unconfirmed) premature ventricular complexes. are now present Sinus rhythm. is now with 2nd degree AV block ([place]obitz I). Confirmed by Sarah Cox MD ([id number]) on 07/03/2019 5:30:42 PM
--- NOTE | 2019-07-03 08:15 | EKG Report ---
Test Performed on : 07/02/2019 3:44:59 PM Test Reason : ED. NO EKG ORDER FOR MUSE Blood Pressure : / mmHG Vent. Rate : 119 BPM Atrial Rate : 119 BPM P-R Int : 138 ms QRS Dur : 084 ms QT Int : 312 ms P-R-T Axes : 057 049 039 degrees QTc Int : 438 ms Sinus tachycardia. Possible Left atrial enlargement Nonspecific ST and T wave abnormality Abnormal ECG When compared with ECG of 02-JUL-2019 13:05, (Unconfirmed) premature atrial complexes. are no longer present Unconfirmed Result
--- NOTE | 2019-07-03 08:16 | EKG Report ---
Test Performed on : 07/02/2019 1:05:43 PM Test Reason : ED. NO EKG ORDER FOR MUSE Blood Pressure : / mmHG Vent. Rate : 105 BPM Atrial Rate : 105 BPM P-R Int : 146 ms QRS Dur : 090 ms QT Int : 356 ms P-R-T Axes : 053 057 065 degrees QTc Int : 470 ms Sinus tachycardia. with premature atrial complexes. Nonspecific ST abnormality Abnormal ECG When compared with ECG of 04-MAY-2019 14:24, premature atrial complexes. are now present ST now depressed in Inferior leads Unconfirmed Result
[2019-07-03] MEDS: PRILOSEC PO SCH (08:52)
[2019-07-03] MEDS: LIPITOR PO SCH (08:52)
[2019-07-03] MEDS: AVAPRO PO SCH (08:52)
[2019-07-03] MEDS: COREG PO SCH ×2 (08:52→20:23)
[2019-07-03] MEDS: DOXYCYCLINE 100 MG in NS 250 ML IV SCH ×2 (08:54→20:22)
[2019-07-03] MEDS ORDERED: ASPIRIN PO SCH (09:00)
[2019-07-03] MEDS ORDERED: MAGNESIUM SULFATE 2 GM/S.W.I. 2 GM/50 ML IVPB IV ONE ×2 (09:30→10:46)
--- NOTE | 2019-07-03 10:39 | CARDIOLOGY CONSULTATION ---
DATE: 07/03/2019 CHIEF COMPLAINT: On presentation, shortness of breath. HISTORY OF PRESENT ILLNESS: Ms. Fregoso is a 64-year-old, white female with a history of hypertension. She has been feeling more short of breath over the last couple of days. Noticing more edema in her lower extremities over the last couple of weeks. She reports she is not on a diuretic at home. The shortness of breath progressed over the last couple of days, and she ultimately decided to come into the ER yesterday. She denies any orthopnea at home. She has not had any chest pain, but she has had some pain in her posterior mid back across her ribs. This would hurt with walking, but will also hurt with ambulation as well as a deep breath and cough. She denies any overt fevers at home. No myalgias. Again, no chest pain. PAST MEDICAL HISTORY: Significant for: 1. Hypertension. 2. Cirrhosis. 3. Depression. 4. Reflux. 5. Reported history of diastolic heart failure per previous notes, but the patient does not have any knowledge of this. 6. Mayer's esophagus. 7. Diverticulosis. 8. Hyperlipidemia. SOCIAL HISTORY: She formerly smoked 30+ years. No alcohol or illicit drugs. FAMILY HISTORY: Significant for hypertension. REVIEW OF SYSTEMS: A 10 system review of systems is negative, except for those things mentioned in HPI. PHYSICAL EXAMINATION: Vital Signs: She is afebrile. Heart rate is 80, her blood pressure is 143/69. Her Is and Os thus far have been negative at 3.2 L. Generally: She is in no acute distress. HEENT: Oropharynx is moist. Poor dentition. Eye examination shows pink conjunctivae, white sclerae. Neck: Examination shows no obvious thyromegaly or thyroid tenderness. Cardiovascular: She sounds to be in a regular rate and rhythm. She has no obvious murmurs. She has no S3. She has 1+ bilateral lower extremity edema. Warm and well perfused extremities. Chest: Exam has reduced breath sounds in bilateral bases. No increased work of breathing. Abdomen: Soft, nontender, nondistended. She has no organomegaly. Skin: Her skin exam is warm and dry throughout without any rashes. Neurological: She is moving all extremities well. No lateralizing deficits. PERTINENT DATA: 1. Her EKG on the at 1305 hours shows sinus rhythm, nonspecific ST-T changes. Subsequent EKG occurring on the at [address] depression laterally. Sinus rhythm. 2. EKG on the at 0139 hours shows sinus rhythm, some mild inferior and lateral ST depression, and again an EKG on the at 0642 hours shows sinus rhythm, PACs. Mild inferior and lateral ST depression. PVC noted as well. 3. Chest CT shows bilateral pleural effusions with compressive atelectasis. Mild infiltrate or edema at the right upper lobe with emphysematous changes. Some coronary calcifications are noted. LAB DATA: Shows a white count of 12.5, hematocrit of 31, platelet count 498. Sodium 142, potassium 3.9. BUN 14, creatinine is 1. Her magnesium level is 1.4, her albumin is 3.4. Her troponin initially was checked and was 80; it has subsequently trended up to 176. Her proBNP is 4288 with a lactate of 1.2. ASSESSMENT: Ms. Fregoso is a 64-year-old female with reported history of diastolic heart failure. PLAN: We will continue to diurese the patient. I will replete the magnesium if it has not already been done so. She is on a dose of Lovenox at 1 mg/kg b.i.d. We will tentatively plan for cardiac catheterization in the next 24 to 48 hours to delineate her coronary anatomy given her troponin elevation. She is currently chest pain-free and has not had really any overt chest pain. She has had some back pain that is atypical for coronary ischemia. There is a pleuritic component to that discomfort. She is on aspirin. She is on Lovenox, diuresing well. cc: Alan Mcmillan MD
--- NOTE | 2019-07-03 11:10 | PROGRESS NOTE ---
DATE: 07/03/2019 SUBJECTIVE: I have seen and examined Ms. Fregoso today. Ms. Fregoso referred to be doing a lot better. She said her breathing is getting out of control. She is still on a non-rebreather. OBJECTIVE: Vital signs: Blood pressure is 143/69, pulse of 80, respirations 24, temperature 97.7 degrees. The patient is saturating 98% on a non-rebreather. General exam: Ms. Fregoso is a 64-year-old female. She is in bed in mild respiratory distress. HEENT: Mucosa is pink and moist. Anicteric. Acyanotic. Neck: Supple. There is positive JVD. Chest: Air entry is bilaterally reduced. There are still some end inspiratory crackles in the posterior lung mcintyre. Cardiovascular: Regular rate and rhythm. There is no murmurs, no rubs, no gallops. GI/Abdomen: Soft. There is an old surgical scar in the mid anterior abdominal wall with some mid point superficial ulcerated wound. The patient has 1+ pedal edema. 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 There is no focal deficit. LABORATORY DATA: The troponins have been trending up as well as the ProBNP. X-RAY DATA: A repeat chest x-ray this morning shows some congestive heart failure with a diffuse bilateral interstitial infiltrate/pneumonia. ASSESSMENT: 1. Acute hypoxemic respiratory failure. Patient continues to be on a non-rebreather. She cycles between BiPAP and non-rebreather. 2. Diffuse pulmonary infiltrate concerning for pulmonary edema due to congestive heart failure. The patient is on diuretic therapy. 3. Diastolic heart failure exacerbation. 4. Hypertension. 5. Leukocytosis with pulmonary infiltrate concerning for superimposed pneumonia. Patient is on antimicrobial therapy. Procalcitonin has been ordered. We will follow it. 6. Elevated troponin concerning for non-ST segment elevation myocardial infarction. The patient is currently on therapeutic Lovenox. Coreg has been started. She is also on aspirin and atorvastatin. Cardiology is on board. PLAN: So, in general, Ms. Fregoso refers to be doing fair. She is still remarkably hypoxemic, which is improved with the non-rebreather. We are going to continue with the diuretics and the management of her other comorbidities. It appears that Ms. Fregoso is in acute congestive heart failure secondary to a non- STEMI. Cardiology is on board and we will follow further recommendations from them. There is a plan for a left heart catheterization in the next 24 to 48 hours. cc: Silverio Byrne MD
--- NOTE | 2019-07-03 11:25 | PROGRESS NOTE ---
DATE: 07/03/2019 HISTORY: Ms. Fregoso is a 64-year-old female who presented to the emergency room for shortness of breath. She has a history of hypertension, dyslipidemia, osteoporosis, bilateral femoral artery stents for PAD and recent right knee arthroplasty. Today, she reports to be doing fine, but would like to go back home so she can go back to work. 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 She has been having some trouble sleeping at night since yesterday, and reports joint pain from her osteoarthritis, but no other acute complaints. OBJECTIVE: Vital Signs: Blood pressure of 143/69, pulse rate of 80, respiratory rate of 24, temperature 97.7 degrees, and oxygenation of 98% on a nonrebreather mask. BMI is 34.9. I's and O's urine output of 4150 mL. positive balance of 600 mL. General: She is a well-appearing, pleasant to talk to, slightly anxious patient. HEENT: on a nonrebreather. Neck: no JVD noted. Heart: Regular rate and rhythm. No appreciable murmurs, gallops, or rubs. Chest: inspiratory crackles bilaterally at the lung bases. Abdomen: Soft, nondistended, nontender. There is an incision midline on the anterior surface, a 3 cm skin erosion with leaking clear fluid. The base is erythematous. Will ask Wound Care if they want to take a look at those. Extremities: surgical scar in left humerus along the glenohumeral joint. DIP of her left big toe is fixed in abduction. There are varicosities on the dorsum of her left foot, they are not as prominent on the right foot. POLISHER AND BUFFER: She is alert and oriented x3. LABORATORY DATA: There is no new CBC. There are no new chemistries. The magnesium level is drawn to be 1.4. Creatine kinase was 176. ProBNP is 4288. ASSESSMENT: A 64-year-old female with non ST-elevation myocardial infarction that led to acute congestive heart failure. 1. Non ST-elevation myocardial infarction. 2. Possible congestive heart failure secondary to acute coronary syndrome. 3. Hypertension. 4. Acute hypoxemic respiratory failure. 5. Hypomagnesemia. 6. Morbid obesity. PLAN: 1. Continue the medications per chf protocol. 2. Consult Cardiology for echocardiogram and possible percutaneous intervention. 3. Repeat ECG upon symptom resolution. Dictated by Nohemy Ames, Medical Student for Silverio Byrne MD This chart was documented by, Nohemy Ames, Medical Student and accurately reflects the services performed, treatment plan and medical decisions as attested by the providers signature Silverio Byrne MD. cc: Silverio Byrne MD [facility]
[2019-07-03] MEDS: ROCEPHIN 1 GM in NS 50 ML IV SCH (11:31)
[2019-07-03] MEDS ORDERED: TYLENOL PO PRN (13:33)
--- NOTE | 2019-07-03 17:18 | ECHO REPORT ---
ORDER DATE: 07/03/2019 INTERPRETING PHYSICIAN: Dr. Jimmy Mann. ECHOCARDIOGRAPHIC MEASUREMENTS: 1. Interventricular septum: 1.4 cm. 2. Left ventricular posterior wall: 1.4 cm. 3. Diastolic diameter: 4.7 cm. 4. Left atrium: 4.3 cm. 5. Aorta: 3.0 cm. SUMMARY OF THE 2-DIMENSIONAL IMAGIN. Aortic valve leaflets were sclerosed, trileaflet. 2. Pulmonic valve not well visualized. 3. There is left atrial enlargement. 4. Tricuspid valve was normal. 5. Mitral valve was normal. 6. There is mitral annular calcification. 7. There is mild mitral regurgitation. 8. Mild tricuspid regurgitation. 9. Peak velocity across the tricuspid valve was 2.5 meters per second. 10. Pulmonary artery systolic pressure of 35 mmHg. 11. Peak velocity across the aortic valve less than 2 meters per second. 12. There is no aortic stenosis. 13. There is trace aortic regurgitation. 14. Optison was used to assess left ventricular systolic function. 15. Normal left ventricular cavity size. 16. Concentric left ventricular hypertrophy. 17. Estimated ejection fraction of 55%. 18. There is left atrial enlargement. 19. Peak velocity across the tricuspid valve was 2.5 meters per second. 20. Pulmonary artery systolic pressure of 35 mmHg. 21. There is grade 1 diastolic dysfunction. 22. There is no pericardial effusion or obvious intracardiac mass or thrombus seen. cc: MD Silverio Machado MD
[2019-07-04 04:47] LABS: ALLEN TEST YES; BE 10.3 mmoll (-3.0-3.0); BLOOD TYPE ARTERIAL; HCO3-(ACT) 32.9 mmoll (20.0-26.0); METHB 0.3 % (0.0-1.5); O2(CT) 12.1 mL/dL (15.0-23.0); O2HB 90.9 % (95.0-99.0); PCO2(98.6) 47 mmHg (35-45); PO2(98.6) 56 mmHg (60-100); SAMPLE BLOOD; SAO2 92.8 % (95.0-100.0); THB 9.4 g/dL (11.5-17.4); pH(98.6) 7.48 (7.35-7.45)
[2019-07-04 04:49] LABS: MODALITY VENTIMASK
[2019-07-04] MEDS: LOVENOX SUBQ SCH ×2 (06:10→18:00)
[2019-07-04] MEDS: LASIX IV SCH ×2 (06:10→18:00)
[2019-07-04 06:16] LABS: HEMATOCRIT 29.8 % (37.0-47.0); HEMOGLOBIN 9.2 g/dL (12.0-16.0); MCH 26.2 PG (27-31); MCHC 30.9 g/dL (33-37); MCV 84.9 FL (81-99); MPV 10.3 FL (7.4-10.4); RBC 3.51 XMIL (4.2-5.4); RDW 15.7 % (11.5-14.5); WBC 11.67 X1000 (4.8-10.8)
[2019-07-04] MEDS ORDERED: MORPHINE IV PRN (06:43)
[2019-07-04 06:56] LABS: AGAP 11; BUN 19 mg/dL (8-22); CALCIUM 10.9 mg/dL (8.8-10.2); CHLORIDE 94 mmol/L (98-107); COSMO 276; CREATININE 0.8 mg/dL (0.5-0.9); ESTIMATED GFR > 60; GLUCOSE 90 mg/dL (70-104); MAGNESIUM 1.6 mg/dL (1.5-2.7); POTASSIUM 2.8 mmol/L (3.5-5.1); SODIUM 137 mmol/L (136-145); TCO2 32 mmol/L (25-35)
--- NOTE | 2019-07-04 07:48 | PROGRESS NOTE ---
DATE: 07/04/2019 SUBJECTIVE: Patient reports breathing okay with Venturi mask. Patient reports when she removes the mask, she experiences shortness of breath. She denies any chest pain. OBJECTIVE: Vital Signs: Temperature 97.5 degrees, heart rate 69, respiratory 19, blood pressure 134/60, O2 saturation 97% on Venturi mask. General: This is a 64-year-old female, lying in bed, in no acute distress. HEENT: Head is normocephalic, atraumatic. Neck: Supple. JVD noted. Cardiovascular: S1, S2 heard. Systolic murmur noted in the aortic area radiating to the neck. Respiratory: Crackles noted in both pulmonary bases. Patient not using any accessory muscles or having work of breathing. Abdomen: Soft. There is an old surgical scar in the mid anterior abdominal wall. Extremities: 1+ pitting edema noted. Neurological: Patient is alert and oriented x3. Moves 4 extremities. LABORATORY DATA: Hemoglobin is 9.2, hematocrit 29.8, with ABG that shows pH 7.48 with pCO2 of 47, PO2 of 56. BMP remarkable for potassium 2.8 and calcium 10.9. ASSESSMENT AND PLAN: 1. Acute hypoxemic respiratory failure secondary to diastolic heart failure exacerbation. At this point, we will continue with Lasix 40 mg IV q.12 hours. Clinically, this patient is feeling a little bit better. Good diuresis noted. At this point, patient using Venturi mask. We will continue to wean off oxygen. There has been elevated troponins and there is a concern for [id number] elevation myocardial infarction. The patient currently is on Lovenox 1 mg/kg every 12 hours. Coreg also has been started. The patient is on atorvastatin and aspirin. Cardiology is planning to do a left heart catheterization within the next 24 hours. We will follow recommendations. 2. Diffuse pulmonary infiltrate concerning for an infection. Patient has been started on ceftriaxone and doxycycline. I think I am going to continue with the same management. 3. Hypertension. Blood pressure is under control. We will continue with the same medications. 4. Disposition. At this point, we will continue to monitor this patient closely. We will follow recommendations from Cardiology to see what is the best timing to do a left heart catheterization. cc: Darryn Denise MD [facility]
--- NOTE | 2019-07-04 08:52 | Diag Imaging Result Doc PS360 ---
EXAM: CHEST-2 VIEWS HISTORY: chf TECHNIQUE: Three views COMPARISON: 07/03/2019 FINDINGS: There are moderate-sized bilateral pleural effusions. The heart is mildly enlarged. There is pulmonary edema. This is actually less prominent than on the prior study. There is basilar atelectasis. IMPRESSION: Mild improvement with decreased pulmonary edema Electronically signed by Shankar Walter 07/04/2019 8:49 AM
[2019-07-04] MEDS: ROCEPHIN 1 GM in NS 50 ML IV SCH (08:53)
[2019-07-04] MEDS: CELEXA PO SCH (08:53)
[2019-07-04] MEDS: DOXYCYCLINE 100 MG in NS 250 ML IV SCH ×2 (08:53→20:32)
[2019-07-04] MEDS: ASPIRIN PO SCH (08:54)
[2019-07-04] MEDS: KLOR-CON PO SCH ×2 (08:54→20:31)
[2019-07-04] MEDS: PRILOSEC PO SCH (08:54)
[2019-07-04] MEDS: AVAPRO PO SCH (08:54)
[2019-07-04] MEDS: LIPITOR PO SCH (08:54)
[2019-07-04] MEDS: COREG PO SCH ×2 (08:55→20:32)
--- NOTE | 2019-07-04 14:32 | CARDIOLOGY PROGRESS NOTE ---
DATE: 07/04/2019 SUBJECTIVE: The patient reports her breathing has improved somewhat, although she still has a significant degree of shortness of breath without her Venturi mask in place. OBJECTIVE: Vital Signs: She is afebrile, heart rate 80, blood pressure 144/66. Her I's and O's have been negative a total of 6.1 L. General: She is in no acute distress. Cardiovascular: She sounds to be in a regular rate and rhythm. She has no murmurs. She has no S3. She has no lower extremity edema. Chest: Reduced breath sounds in the bilateral bases. She has no increased work of breathing. Abdomen: Soft, nontender. PERTINENT DATA: Her sodium is 137, potassium is 2.8. This has already been repleted by the primary team. Her BUN and creatinine are 19 and 0.8 respectively. ProBNP is 2634. Her white count is 11.6. ASSESSMENT: Ms. Fregoso is a 64-year-old female who presented with dyspnea. PLAN: She has a normal ejection fraction. I have increased her Coreg slightly. The primary team has already repleted her potassium. I would tend to proceed with cardiac catheterization on to delineate her coronary anatomy, especially given her elevation of her troponin that has trended up, and has now trended down. Family and patient are comfortable with this. cc: Alan Mcmillan MD
[2019-07-04] MEDS: DESYREL PO SCH (20:31)
[2019-07-05] MEDS: LOVENOX SUBQ SCH ×2 (06:09→17:35)
[2019-07-05] MEDS: LASIX IV SCH ×2 (06:09→17:35)
[2019-07-05 06:15] LABS: BASO# 0.07 X1000 (0.0-0.2); BASO% 0.6 % (0.0-0.8); EOS# 0.48 X1000 (0.0-0.7); EOS% 3.9 % (0.0-10.0); HEMATOCRIT 32.4 % (37.0-47.0); HEMOGLOBIN 9.8 g/dL (12.0-16.0); IMM GRAN# 0.02 X1000 (0.0-0.04); IMM GRAN% 0.2 % (0.0-0.5); LYMPH# 1.78 X1000 (1.2-3.4); LYMPH% 14.4 % (20.5-51.1); MCH 25.1 PG (27-31); MCHC 30.2 g/dL (33-37); MCV 83.1 FL (81-99); MONO# 1.57 X1000 (0.11-0.59); MONO% 12.7 % (1.7-9.3); MPV 10.1 FL (7.4-10.4); NEUT# 8.45 X1000 (1.4-6.5); NEUT% 68.2 % (42.2-75.2); PLT 515 X1000 (130-400); RDW 15.8 % (11.5-14.5); WBC 12.37 X1000 (4.8-10.8)
[2019-07-05 06:42] LABS: AGAP 12; ALBUMIN 3.1 g/dL (3.5-5.0); BUN 17 mg/dL (8-22); CALCIUM 10.9 mg/dL (8.8-10.2); CHLORIDE 96 mmol/L (98-107); COSMO 279; CREATININE 0.8 mg/dL (0.5-0.9); ESTIMATED GFR > 60; GLUCOSE 91 mg/dL (70-104); PHOSPHORUS 3.9 mg/dL (2.7-4.5); POTASSIUM 3.5 mmol/L (3.5-5.1); SODIUM 139 mmol/L (136-145); TCO2 31 mmol/L (25-35)
--- NOTE | 2019-07-05 08:09 | PROGRESS NOTE ---
DATE: 07/05/2019 SUBJECTIVE: Patient reports breathing okay. She continues to require Venturi mask. No acute issues noted as per the nursing staff overnight. OBJECTIVE: Vital Signs: Temperature 98.5 degrees, heart rate 73, respiratory rate 25, blood pressure 120/70, O2 saturation 97% on Venturi mask at 15%. General Examination: This is a 64- year-old, female lying in bed, in no acute distress. Cardiovascular Examination: S1 and S2 heard. Systolic murmur noted in the aortic area, radiating to the neck. Respiratory Examination: Crackles noted in both pulmonary bases. Definitely much better in comparing with yesterday. Patient is not using any accessory muscles or having work of breathing. Abdomen: Soft. There is an old surgical scar in the mid anterior abdominal wall. Extremities: There is 1+ pitting edema noted. Neurological Examination: The patient is alert and oriented x3. Moves 4 extremities. Laboratory Data: White cell count 12.37, hemoglobin 9.8, hematocrit 32.4, platelets 515,000. BMP that reveals potassium 3.5, calcium 10.9. ASSESSMENT AND PLAN: 1. Acute hypoxemic respiratory failure secondary to diastolic heart failure exacerbation. We will continue with Lasix 40 mg intravenous every 12 hours. Clinically, this patient is doing fine. Ins and outs indicate that this patient made 4.2 L of urine during the last 24 hours and so far, 13 L since admission. So there is an excellent urine output. We will continue with the same management. 2. Possible non-ST segment elevation myocardial infarction. The patient continues to be on Lovenox 1 mg/kg every 12 hours. Coreg has been started. Patient reports that she is intolerant to beta blockers so we will talk with cardiology about it. The patient is also on aspirin and atorvastatin. Cardiology plans to do a left heart catheterization tomorrow. We will see what it shows. At this point, the patient is not complaining of any chest pain. 3. Diffuse pulmonary infiltrate, concerning for infection. The patient currently is on doxycycline and ceftriaxone. I think we will continue with the same management for now. 4. Hypertension. Blood pressure is under control. We will continue with the same management. 5. Disposition. At this point, we will continue with current medication outlined by cardiology. The patient will have a left heart catheterization tomorrow. We will see what it shows. cc: Darryn Denise MD
[2019-07-05] MEDS ORDERED: POTASSIUM CHLORIDE 20% LIQUID PO ONE (08:10)
[2019-07-05] MEDS: DOXYCYCLINE 100 MG in NS 250 ML IV SCH ×2 (08:34→20:24)
[2019-07-05] MEDS: ROCEPHIN 1 GM in NS 50 ML IV SCH (08:34)
[2019-07-05] MEDS: AVAPRO PO SCH (08:35)
[2019-07-05] MEDS: LIPITOR PO SCH (08:35)
[2019-07-05] MEDS: PRILOSEC PO SCH (08:35)
[2019-07-05] MEDS: CELEXA PO SCH (08:35)
[2019-07-05] MEDS: ASPIRIN PO SCH (08:35)
[2019-07-05] MEDS: COREG PO SCH ×2 (08:35→20:28)
--- NOTE | 2019-07-05 09:41 | CARDIOLOGY PROGRESS NOTE ---
DATE: 07/05/2019 SUBJECTIVE: Ms. Fregoso continues to be short of breath. She reports she feels better overall, although continues to require Venturi mask. PHYSICAL EXAMINATION: Vital Signs: Afebrile. Heart rate 80, blood pressure 128/58. General: No acute distress. Cardiovascular: She sounds to be in a regular rate and rhythm. She has no murmurs. Chest: Her chest exam continues to have some mild reduction in breath sounds in the bases. She has no increased work of breathing. Abdomen: Soft and nontender. PERTINENT DATA: White count 12.4, hematocrit is 32, her platelet count is 515,000. Sodium 139, potassium 3.5, BUN 17, creatinine 0.8. ASSESSMENT: Ms. Fregoso is a 64-year-old female who presented with a [id number]/heart failure. PLAN: We will continue to diurese the patient. She has had a good urine output overall with -11 liters. Her laboratory data today continues to suggest good renal function. I have repleted her potassium. We have tentatively planned for a left and right heart catheterization tomorrow around noon. The patient is comfortable with that decision. I in addition talked to her son yesterday, and he is aware of the current situation. cc: Alan Mcmillan MD
[2019-07-05] MEDS: DESYREL PO SCH (20:24)
[2019-07-06] MEDS: LOVENOX SUBQ SCH (05:55)
[2019-07-06] MEDS: LASIX IV SCH ×2 (05:55→19:37)
[2019-07-06 06:16] LABS: BASO# 0.09 X1000 (0.0-0.2); BASO% 0.7 % (0.0-0.8); EOS# 0.53 X1000 (0.0-0.7); EOS% 4.3 % (0.0-10.0); HEMATOCRIT 32.1 % (37.0-47.0); HEMOGLOBIN 9.6 g/dL (12.0-16.0); IMM GRAN# 0.04 X1000 (0.0-0.04); IMM GRAN% 0.3 % (0.0-0.5); LYMPH# 2.33 X1000 (1.2-3.4); LYMPH% 18.8 % (20.5-51.1); MCH 24.9 PG (27-31); MCHC 29.9 g/dL (33-37); MCV 83.4 FL (81-99); MONO# 1.69 X1000 (0.11-0.59); MONO% 13.6 % (1.7-9.3); MPV 9.7 FL (7.4-10.4); NEUT# 7.72 X1000 (1.4-6.5); NEUT% 62.3 % (42.2-75.2); PLT 541 X1000 (130-400); RBC 3.85 XMIL (4.2-5.4); RDW 15.8 % (11.5-14.5)
[2019-07-06 06:27] LABS: INR 1.07
[2019-07-06 06:43] LABS: AGAP 12; ALBUMIN 3.4 g/dL (3.5-5.0); ALKALINE PHOSPHATASE 160 U/L (32-104); BUN 22 mg/dL (8-22); CALCIUM 11.4 mg/dL (8.8-10.2); CHLORIDE 94 mmol/L (98-107); COSMO 279; CREATININE 0.9 mg/dL (0.5-0.9); ESTIMATED GFR > 60; GLUCOSE 91 mg/dL (70-104); GOT 13 U/L (10-30); GPT 11 U/L (10-36); POTASSIUM 3.7 mmol/L (3.5-5.1); SODIUM 138 mmol/L (136-145); TCO2 32 mmol/L (25-35); TOTAL BILIRUBIN 0.33 mg/dL (0.20-1.00); TOTAL PROTEIN 6.9 g/dL (6.3-8.3)
[2019-07-06 06:48] LABS: AGAP 11; ALBUMIN 3.5 g/dL (3.5-5.0); BUN 22 mg/dL (8-22); CALCIUM 11.7 mg/dL (8.8-10.2); CHLORIDE 95 mmol/L (98-107); COSMO 280; CREATININE 0.9 mg/dL (0.5-0.9); ESTIMATED GFR > 60; GLUCOSE 90 mg/dL (70-104); PHOSPHORUS 4.9 mg/dL (2.7-4.5); POTASSIUM 3.9 mmol/L (3.5-5.1); SODIUM 139 mmol/L (136-145); TCO2 33 mmol/L (25-35)
[2019-07-06] MEDS ORDERED: MAGNESIUM SULFATE 4 GM/S.W.I. 4 GM/100 ML IVPB IV ONE (07:04)
--- NOTE | 2019-07-06 07:36 | PROGRESS NOTE ---
DATE: 07/06/2019 SUBJECTIVE: The patient reports breathing fine. Denies any chest pain, any chest pressure, any palpitations. Now, she is requiring oxygen by nasal cannula. OBJECTIVE: Vital Signs: Temperature 98 degrees, heart rate 70, respiratory rate 18, blood pressure 135/52, O2 saturation 95% on 5 L nasal cannula. General: This is a 64-year-old, female, obese, lying in bed in no acute distress. Cardiovascular: S1, S2 heard. Systolic murmur noted in the aortic area, radiating to the neck. Respiratory: Crackles still noted in both pulmonary bases, definitely much better in comparing with yesterday. The patient is not using any accessory muscles or having work of breathing. Abdomen: Soft. There is an old surgical scar in the mid anterior abdominal wall. Extremities: There is 1+ pitting edema noted. Neurological: The patient is alert and oriented x3. Moves all 4 extremities. LABORATORY DATA: White cell count 12.4, hemoglobin 9.6, hematocrit 32.1, platelets 541,000, with magnesium 1.4. ASSESSMENT AND PLAN: 1. Acute hypoxemic respiratory failure secondary to diastolic heart failure exacerbation. Currently, this patient is on Lasix 40 mg intravenously every 12 hours. The patient is having excellent urine output. Will continue with the same management. 2. Possible non ST-segment elevation myocardial infarction. Clinically, this patient is doing fine. No complaint of any chest pain. The patient is on Lovenox 1 mg/kg every 12 hours. Also Coreg. Today, the patient is going to have left heart catheterization. I appreciate Cardiology input. Will continue to monitor. 3. Diffuse pulmonary infiltrate, concerning for infection. The patient is on ceftriaxone and doxycycline. Will continue with the same management. 4. Hypertension. Blood pressure is under control. Will continue with the same management. 5. Disposition. At this point, will do left heart catheterization today as per Cardiology recommendation. Will go from there. cc: Darryn Denise MD
[2019-07-06] MEDS: LIPITOR PO SCH (08:47)
[2019-07-06] MEDS: CELEXA PO SCH (08:47)
[2019-07-06] MEDS: DOXYCYCLINE 100 MG in NS 250 ML IV SCH ×2 (08:47→19:37)
[2019-07-06] MEDS: ASPIRIN PO SCH (08:47)
[2019-07-06] MEDS: COREG PO SCH ×2 (08:47→21:07)
[2019-07-06] MEDS: ROCEPHIN 1 GM in NS 50 ML IV SCH (08:47)
[2019-07-06] MEDS: PRILOSEC PO SCH (08:47)
[2019-07-06] MEDS: AVAPRO PO SCH (08:51)
--- NOTE | 2019-07-06 09:07 | CARDIOLOGY PROGRESS NOTE ---
DATE: 07/06/2019 SUBJECTIVE: Ms. Fregoso has no complaints today. She is breathing better. She is on a reduced oxygen requirement. OBJECTIVE: General: She is in no acute distress. Cardiovascular: She sounds to be in a regular rate and rhythm. A 2/6 systolic murmur is best heard at the right upper sternal border. She has no lower extremity edema. Chest Examination: Improved. Still has some reduction in the lower bases. Abdomen is soft, nontender. Heart rate 78, blood pressure 128/64. Her Is and Os cumulatively have been -13 L. Lab Data: Shows a white count of 12.4, hematocrit 32, platelet count is 541,000. Her sodium is 138, potassium is 3.7, her BUN is 22, creatinine 0.9. Her magnesium level is 1.4. This has been repleted. ASSESSMENT: Ms. Fregoso is a 64-year-old female who presented with heart failure and possible non-ST elevation myocardial infarction. PLAN: She will proceed to left heart catheterization today. Risks, benefits, and alternatives have been explained, and she agrees to proceed. Further recommendations to follow the procedure. cc: Alan Mcmillan MD
[2019-07-06] MEDS ORDERED: HEPARIN 1000 UNITS/NS 2,000 UNIT/1,000 ML IV.SOLN ONE (11:44)
[2019-07-06] MEDS ORDERED: CLAVE TWINSITE 32 IN 11959 ONE (12:40)
[2019-07-06] MEDS ORDERED: ANESTHESIA PB SET 88 IN 5742 ONE (12:40)
[2019-07-06] MEDS ORDERED: NS 1,000 ML ONE (12:40)
[2019-07-06] MEDS ORDERED: VERSED ONE (12:50)
[2019-07-06] MEDS ORDERED: DILAUDID ONE (12:50)
[2019-07-06] MEDS ORDERED: ISOPTIN ONE (12:54)
--- NOTE | 2019-07-06 14:46 | CARDIAC CATH REPORT ---
PROCEDURE NAME: - INDICATION: Non ST-elevation [place], congestive heart failure. PROCEDURES PERFORMED: 1. Left heart catheterization. 2. Right subclavian angiography. 3. Coronary angiography. PROCEDURE IN DETAIL: Ms. Fregoso was brought to the catheterization laboratory in fasting state. Informed consent was obtained. Prepped in usual fashion. She was anesthetized with 1 mg of Versed as well as lidocaine over the right femoral artery. A 5-Latvian sheath was placed via true Seldinger technique after Oskar's test proved adequate. Catheters were introduced. Hemodynamic measurements were made in the ascending thoracic aorta. Coronary angiography was performed in multiple views using JL-3.5 and JR-4 diagnostic catheters. Left heart catheterization and left ventriculogram was performed using the JR-4. A right subclavian angiogram was performed using the JR-4. At the conclusion of the procedure, all sheaths and catheters were removed. TR band was left inflated at 8 mL of air. Good capillary refill. Good hemostasis. 5 to 10 mL of blood loss. 80 mL of IV contrast. FINDINGS: 1. The left main originates from the left coronary cusp. There is an ostial 20% to 30% lesion with some calcification noted. 2. Left anterior descending originates from the left main. There is mild plaque in the mid-to- late proximal vessel on the order of 30% to 40%. Otherwise, the vessel appears relatively normal. 3. The circumflex originates from the left main. No clear evidence of significant plaque identified in the circumflex territory. 4. The right coronary is occluded proximally with very scant flow proximally to distally via collateralization. There is significant pycp-ya-vuyxr collateralization visualized at the remainder of the right coronary that appears to be yqysovad-qv-biyrv in size with minimal disease backfilling up to the mid vessel. 5. The ejection fraction is 60% with normal wall motion. 6. The left ventricular pressure is 165/14, with an LVEDP of 35. Aortic blood pressure is 152/55, with a mean of 87. ASSESSMENT: Ms. Fregoso is a 64-year-old female who presented with new-onset heart failure. PLAN: She has an occluded right coronary with scant coronary disease elsewhere. We will continue to diurese the patient based on her markedly elevated LVEDP. She will go back to the floor for usual postprocedure convalescence. Will continue to pursue secondary risk factor modification. cc: Alan Mcmillan MD
--- NOTE | 2019-07-06 15:02 | EKG Report ---
Test Performed on : 07/06/2019 2:40:02 PM Test Reason : s/p heart cath Blood Pressure : / mmHG Vent. Rate : 071 BPM Atrial Rate : 071 BPM P-R Int : 162 ms QRS Dur : 086 ms QT Int : 410 ms P-R-T Axes : 067 035 049 degrees QTc Int : 445 ms Normal sinus rhythm. Possible Left atrial enlargement Left ventricular hypertrophy Abnormal ECG When compared with ECG of 03-JUL-2019 06:42, premature ventricular complexes. are no longer present Sinus rhythm. is no longer with 2nd degree AV block (Mobitz I). ST no longer depressed in Inferior leads Confirmed by Sarah Cox MD ([id number]) on 07/07/2019 4:57:33 PM
[2019-07-06] MEDS: DESYREL PO SCH (21:07)
[2019-07-07] MEDS: LASIX IV SCH (05:28)
[2019-07-07 06:13] LABS: BASO# 0.06 X1000 (0.0-0.2); BASO% 0.6 % (0.0-0.8); EOS# 0.59 X1000 (0.0-0.7); EOS% 5.6 % (0.0-10.0); HEMATOCRIT 31.4 % (37.0-47.0); HEMOGLOBIN 9.6 g/dL (12.0-16.0); IMM GRAN# 0.02 X1000 (0.0-0.04); IMM GRAN% 0.2 % (0.0-0.5); LYMPH# 1.79 X1000 (1.2-3.4); LYMPH% 16.8 % (20.5-51.1); MCH 25.5 PG (27-31); MCHC 30.6 g/dL (33-37); MCV 83.3 FL (81-99); MONO# 1.51 X1000 (0.11-0.59); MONO% 14.2 % (1.7-9.3); MPV 9.8 FL (7.4-10.4); NEUT# 6.66 X1000 (1.4-6.5); NEUT% 62.6 % (42.2-75.2); PLT 506 X1000 (130-400); RBC 3.77 XMIL (4.2-5.4); WBC 10.63 X1000 (4.8-10.8)
[2019-07-07 06:35] LABS: AGAP 12; ALBUMIN 3.1 g/dL (3.5-5.0); BUN 17 mg/dL (8-22); CALCIUM 11.6 mg/dL (8.8-10.2); CHLORIDE 96 mmol/L (98-107); COSMO 278; CREATININE 0.8 mg/dL (0.5-0.9); ESTIMATED GFR > 60; GLUCOSE 86 mg/dL (70-104); PHOSPHORUS 5.1 mg/dL (2.7-4.5); POTASSIUM 3.4 mmol/L (3.5-5.1); SODIUM 139 mmol/L (136-145); TCO2 31 mmol/L (25-35)
[2019-07-07] MEDS ORDERED: POTASSIUM CHLORIDE 20% LIQUID PO ONE (08:14)
[2019-07-07] MEDS ORDERED: MAGNESIUM SULFATE 2 GM/S.W.I. 2 GM/50 ML IVPB IV ONE (08:14)
--- NOTE | 2019-07-07 08:32 | Diag Imaging Result Doc PS360 ---
EXAM: CHEST-2 VIEWS HISTORY: pulmonary edema TECHNIQUE: Two views COMPARISON: 07/04/2019 FINDINGS: Interval decrease in the size of the pleural effusions. There is basilar atelectasis. The heart is mildly enlarged. Mild central vascular prominence. This is less pronounced. IMPRESSION: Interval improvement Electronically signed by Shankar Walter 07/07/2019 8:30 AM
[2019-07-07] MEDS: DOXYCYCLINE 100 MG in NS 250 ML IV SCH ×2 (08:33→21:41)
[2019-07-07] MEDS: ROCEPHIN 1 GM in NS 50 ML IV SCH (08:33)
[2019-07-07] MEDS: ASPIRIN PO SCH (08:33)
[2019-07-07] MEDS: AVAPRO PO SCH (08:33)
[2019-07-07] MEDS: CELEXA PO SCH (08:33)
[2019-07-07] MEDS: LIPITOR PO SCH (08:33)
[2019-07-07] MEDS: PRILOSEC PO SCH (08:33)
[2019-07-07] MEDS ORDERED: COREG PO SCH (09:00)
[2019-07-07] MEDS ORDERED: CELEBREX PO SCH (10:00)
--- NOTE | 2019-07-07 10:31 | PROGRESS NOTE ---
DATE: 07/07/2019 SUBJECTIVE: Patient reports feeling fine, now requiring 6 L of oxygen by nasal cannula. Denies any chest pain, any shortness of breath. OBJECTIVE: Vital Signs: Temperature 98.3 degrees, heart rate 73, respiratory rate 18, blood pressure 135/49, O2 saturation 98% on 3 L nasal cannula. General: This is a 64-year-old female lying in bed, in no acute distress. Cardiovascular: S1 and S2 heard. There is a systolic murmur noted in the aortic area radiating to the neck. Respiratory: Minimal crackles noted in both pulmonary bases. Definitely much better in comparing with yesterday. Patient is not using any accessory muscles or having work of breathing. Abdomen: Soft, nontender to palpation. Bowel sounds present. No organomegaly. Extremities: No clubbing, cyanosis, but 1+ pitting edema noted in both lower extremities. Neurological: Patient alert and oriented x3. Moves 4 extremities. LABORATORY DATA: White count 10.63, hemoglobin 9.6, hematocrit 31.4, platelets 506,000. BMP is remarkable for potassium 3.4, calcium 11.6, phosphorus 5.1. ProBNP 714. ASSESSMENT: 1. Acute hypoxemic respiratory failure secondary to diastolic heart failure. Clinically, this patient is doing better. We will continue with Lasix 40 mg IV q.12 hours. The patient is having good urine output. We will continue with same management. 2. Possible non ST-segment elevation myocardial infarction. Clinically, this patient is doing fine. The patient continues to be on Coreg. The patient is on aspirin and Lipitor. Lovenox has been stopped. The heart catheterization revealed occluded right coronary artery with scant coronary artery disease. At this point, medical management has been recommended by Cardiology. 3. Diffuse pulmonary infiltrate concerning for infection. The patient is on ceftriaxone and doxycycline. Today is day #5 for both medications. Will continue with same management. 4. Hypertension. Blood pressure is under control. We will continue with the same management. 5. Disposition. At this point, the patient is more stable. We will continue with same management. We will consult physical therapy. We will transfer this patient to a regular room today. If the patient is feeling better, will discharge in the next 24 to 48 hours. cc: Darryn Denise MD [facility]
--- NOTE | 2019-07-07 18:24 | CARDIOLOGY PROGRESS NOTE ---
DATE: 07/07/2019 SUBJECTIVE: Ms. Fregoso reports she is doing well. Her O2 requirement is down to 3 L nasal cannula. OBJECTIVE: General: She is in no acute distress. Cardiovascular: She is found to be in a regular rate and rhythm. She has no murmurs, no S3. She has no lower extremity edema. Chest: Is clear bilaterally. Vitals: She is afebrile, heart rate is 69, blood pressure 94/38. Her I's and O's are cumulatively -16 L. PERTINENT DATA: White count 10.6 hematocrit is 31, platelet count is 506,000. Sodium is 139, potassium 3.4, BUN 17, creatinine 0.8. Her proBNP is 704. ASSESSMENT: Ms. Fregoso is a 64-year-old female who presented with a non ST elevation myocardial infarction and congestive heart failure. PLAN: We have changed her over to oral Lasix. I have tried escalate her up to 12.5 on carvedilol, but she did not tolerate this. For now, I would continue her on the Lasix, irbesartan. I will add in a Brilinta 90 mg b.i.d. considering her [id number]-[id number] OK. She is on high-intensity statin. From my standpoint, if laboratories are reasonable in the morning, she could likely be discharged home. cc: Alan Mcmillan MD
[2019-07-07] MEDS ORDERED: LASIX PO SCH (21:00)
[2019-07-07] MEDS: COREG PO SCH (21:41)
[2019-07-07] MEDS: DESYREL PO SCH (21:41)
[2019-07-07] MEDS: BRILINTA PO SCH (21:41)
[2019-07-08 07:58] LABS: BASO# 0.07 X1000 (0.0-0.2); BASO% 0.7 % (0.0-0.8); EOS# 0.56 X1000 (0.0-0.7); EOS% 5.2 % (0.0-10.0); HEMATOCRIT 32.2 % (37.0-47.0); HEMOGLOBIN 9.5 g/dL (12.0-16.0); IMM GRAN# 0.02 X1000 (0.0-0.04); IMM GRAN% 0.2 % (0.0-0.5); LYMPH# 2.07 X1000 (1.2-3.4); LYMPH% 19.3 % (20.5-51.1); MCH 24.7 PG (27-31); MCHC 29.5 g/dL (33-37); MCV 83.9 FL (81-99); MONO% 11.2 % (1.7-9.3); MPV 9.9 FL (7.4-10.4); NEUT% 63.4 % (42.2-75.2); PLT 508 X1000 (130-400); RBC 3.84 XMIL (4.2-5.4); WBC 10.72 X1000 (4.8-10.8)
[2019-07-08 08:35] VITALS: BP 134/52
[2019-07-08 08:44] LABS: ALBUMIN 3.2 g/dL (3.5-5.0); PHOSPHORUS 4.8 mg/dL (2.7-4.5); POTASSIUM 4.2 mmol/L (3.5-5.1)
[2019-07-08] MEDS: COREG PO SCH (08:47)
[2019-07-08] MEDS: CELEXA PO SCH (08:48)
[2019-07-08] MEDS: ASPIRIN PO SCH (08:48)
[2019-07-08] MEDS: PRILOSEC PO SCH (08:48)
[2019-07-08] MEDS: BRILINTA PO SCH (08:48)
[2019-07-08] MEDS: LIPITOR PO SCH (08:48)
[2019-07-08] MEDS: AVAPRO PO SCH (08:48)
[2019-07-08] MEDS: ROCEPHIN 1 GM in NS 50 ML IV SCH (08:49)
[2019-07-08] MEDS: DOXYCYCLINE 100 MG in NS 250 ML IV SCH (08:51)
[2019-07-08 08:52] LABS: CALCIUM 12.5 mg/dL (8.8-10.2)
[2019-07-08] MEDS ORDERED: LASIX PO SCH (09:00)
[2019-07-08] MEDS ORDERED: ZOMETA 4 MG in NS 100 ML IV ONE (09:02)
[2019-07-08] MEDS ORDERED: MIACALCIN SUBQ ONE (09:05)
[2019-07-08] MEDS ORDERED: NS 1,000 ML IV ONE (09:05)
--- NOTE | 2019-07-10 18:58 | DISCHARGE SUMMARY ---
ADMISSION DATE: 07/02/2019 DISCHARGE DATE: 07/08/2019 DISCHARGE DIAGNOSES: 1. Non ST-segment elevation myocardial infarction. 2. Acute hypoxemic respiratory failure secondary to diastolic heart failure resolved. 3. Possible community-acquired pneumonia. 4. Hypertension. CONSULTATION: Dr. Alan Mcmillan from Cardiology. PROCEDURES: 1. Chest CT showed bilateral pleural effusion with adjacent dependent compressive atelectasis and mild infiltrate or edema in the right upper lobe with emphysematous changes. 2. Echocardiogram showed ejection fraction 55% with no pericardial effusion or obvious intracardiac mass or thrombus seen. Left atrial enlargement. 3. Cardiac catheterization with right subclavian angiography and coronary angiography showed an occluded right coronary with scant coronary disease elsewhere. HOSPITAL COURSE: This is a 61-year-old female with past medical history of hypertension, cirrhosis, depression gastroesophageal reflux disease and diastolic congestive heart failure who presented to the emergency department complaining of 2 days history of shortness of breath, productive cough with whitish sputum. On the ER workup she was found to have a pneumonia but also there was some elevation of troponins. The patient was evaluated by Cardiology and we decided to treat this patient 1st for pneumonia to stabilize her and then do left heart catheterization later. Patient responded to the therapy. Her oxygen needs were getting better. Leukocytosis resolved finally after antibiotic treatment. So therefore cardiac catheterization showed results as above. Cardiology recommend medical treatment. At the time of discharge, patient is not requiring any oxygen. I think all the pulmonary edema because of the non ST- segment elevation myocardial infarction has resolved so she will not need Lasix at discharge. The patient is going to be seen by Cardiology now in 4 weeks and by his primary care physician in a week. Hypertension has been controlled during her all her stay at the hospital. DISCHARGE PHYSICAL EXAMINATION: Vital Signs: Temperature 98.2 degrees, heart rate 77, respiratory rate 18, blood pressure 134/52, O2 saturation 98% on 3 L nasal cannula. This is a 64- year-old female lying in bed, in no acute distress. Cardiovascular: S1, S2 heard. No murmurs, gallops, or rubs. Regular rate and rhythm. Respiratory: Exam clear bilaterally to auscultation. No work of breathing or using accessory muscles. Abdomen: Soft, nontender to palpation. Bowel sounds present. No organomegaly. Extremities: No clubbing, cyanosis, or edema. Peripheral pulses present in both legs. Neurological: The patient is alert and oriented x3. Moves 4 extremities. DISCHARGE DISPOSITION: Home to self-care. FOLLOW-UP INSTRUCTIONS: Follow up with Dr. Alan Mcmillan in 4 weeks. DISCHARGE MEDICATIONS: 1. Coreg 6.25 mg 1 tablet p.o. twice daily. 2. Brilinta 90 mg 1 tablet p.o. twice daily. 3. Cefdinir 300 mg 1 tablet p.o. twice daily for 7 days. 4. Aspirin 81 mg 1 tablet p.o. daily. 5. Celecoxib 1 tablet p.o. daily. 6. Omeprazole 20 mg 1 tablet p.o. daily. 7. Atorvastatin 40 mg 1 tablet p.o. daily. 8. Cilostazol 100 mg 1 tablet p.o. b.i.d. 9. Irbesartan 150 mg 1 tablet p.o. daily. 10. Citalopram 40 mg 1 tablet p.o. daily. 11. Trazodone 50 mg 1 tablet p.o. at bedtime. 12. Zofran as needed for nausea. 13. [place] 10 mg 1 tablet p.o. every 2 to every 4 to 6 to 6 hours as needed. DISCHARGE DISPOSITION: Time spent discharging this patient was 40 minutes. cc: Darryn Denise MD [facility]
== END 2019-07-08 14:23 | disposition home or self-care (01) | DRG 280 ==
LOC: SUPCPDRO → ED 12:38 → 2N 16:29 → SUATTDRO 16:29 → 3N 07-07 19:52
PROVIDERS: ATTEND Internal Medicine

== ENCOUNTER 2019-07-18 21:17 | Inpatient (IN) ==
[2019-07-18] MEDS ORDERED: DILAUDID IV ONE (22:28)
[2019-07-18] MEDS ORDERED: ZOFRAN IV ONE (22:28)
[2019-07-18 23:27] LABS: BASO# 0.07 X1000 (0.0-0.2); BASO% 0.5 % (0.0-0.8); EOS# 0.15 X1000 (0.0-0.7); HEMATOCRIT 27.6 % (37.0-47.0); HEMOGLOBIN 8.4 g/dL (12.0-16.0); IMM GRAN# 0.03 X1000 (0.0-0.04); IMM GRAN% 0.2 % (0.0-0.5); LYMPH# 2.29 X1000 (1.2-3.4); LYMPH% 15.8 % (20.5-51.1); MCH 24.8 PG (27-31); MCHC 30.4 g/dL (33-37); MCV 81.4 FL (81-99); MONO# 1.65 X1000 (0.11-0.59); MONO% 11.4 % (1.7-9.3); MPV 9.8 FL (7.4-10.4); NEUT# 10.29 X1000 (1.4-6.5); NEUT% 71.1 % (42.2-75.2); PLT 502 X1000 (130-400); RBC 3.39 XMIL (4.2-5.4); RDW 16.4 % (11.5-14.5); WBC 14.48 X1000 (4.8-10.8)
[2019-07-18 23:36] LABS: INR 1.2; PROTIME 15.4 Seconds (11.0-16.0)
[2019-07-18 23:37] LABS: PTT 31.1 Seconds (22.3-41.8)
--- NOTE | 2019-07-18 23:41 | EKG Report ---
Test Performed on : 07/18/2019 10:32:34 PM Test Reason : sob Blood Pressure : / mmHG Vent. Rate : 065 BPM Atrial Rate : 065 BPM P-R Int : 150 ms QRS Dur : 096 ms QT Int : 522 ms P-R-T Axes : 054 037 045 degrees QTc Int : 542 ms Normal sinus rhythm. Possible Inferior infarct , age undetermined Cannot rule out Anterior infarct , age undetermined Abnormal ECG When compared with ECG of 06-JUL-2019 14:40, Borderline criteria for Inferior infarct are now present ST now depressed in Anterior leads QT has lengthened Unconfirmed Result
[2019-07-18 23:54] LABS: AGAP 14; ALB/GLOB RATIO 1.2; ALBUMIN 3.5 g/dL (3.5-5.0); ALKALINE PHOSPHATASE 169 U/L (32-104); BUN 13 mg/dL (8-22); CALCIUM 7.1 mg/dL (8.8-10.2); CHLORIDE 98 mmol/L (98-107); COSMO 276; CREATININE 0.8 mg/dL (0.5-0.9); ESTIMATED GFR > 60; GLUCOSE 99 mg/dL (70-104); GOT 14 U/L (10-30); GPT 11 U/L (10-36); POTASSIUM 2.8 mmol/L (3.5-5.1); SODIUM 138 mmol/L (136-145); TCO2 26 mmol/L (25-35); TOTAL BILIRUBIN 0.38 mg/dL (0.20-1.00); TOTAL PROTEIN 6.4 g/dL (6.3-8.3)
[2019-07-19] MEDS ORDERED: KLOR-CON PO ONE (00:36)
--- NOTE | 2019-07-19 05:19 | Diag Imaging Result Doc PS360 ---
EXAM: CHEST-1 VIEW HISTORY: sob, cp TECHNIQUE: Single view COMPARISON: 07/07/2019 FINDINGS: The lungs are well expanded. The heart is mildly prominent. Mild central vascular prominence remains. There are no infiltrates. No effusion identified. IMPRESSION: Stable chest Electronically signed by Shankar Walter 07/19/2019 5:17 AM
--- NOTE | 2019-07-19 05:19 | PROVIDER DOCUMENTATION ---
This chart was entered by Sintia Rdz Scribe, acting as scribe for Valdez Lu MD. HPI-Chest Pain - General Stated Complaint: CHEST PAIN Time Seen by Provider: 07/18/19 22:22 Source: patient Allergies/Adverse Reactions: Patient Allergies Allergy/AdvReac Type Severity Reaction Status Date / Time azithromycin Allergy Severe DIARRHEA Verified 05/04/19 14:11 latex Allergy Severe RASH Verified 05/04/19 14:11 clindamycin Allergy Verified 05/09/19 09:20 erythromycin base Allergy Verified 05/09/19 09:18 levofloxacin [From Levaquin] Allergy SWELLING Verified 05/04/19 14:11 metronidazole [From Flagyl] Allergy SWELLING Verified 05/04/19 14:11 sulfamethoxazole Allergy Verified 05/09/19 09:19 [From Septra] trimethoprim [From Septra] Allergy Verified 05/09/19 09:19 metal Allergy Severe RASH Uncoded 05/04/19 14:11 mycin Allergy SWELLING Uncoded 05/04/19 14:11 AND JOINT ACHES Home Medications: Home Medication List Medication Instructions Recorded Confirmed Last Taken Type Celecoxib [Celebrex] 200 mg PO BID 01/12/12 07/02/19 05/08/19 15:00 History Omeprazole 20 mg PO DAILY 05/24/12 07/02/19 05/08/19 07:00 History ATORVAstatin [Lipitor] 40 mg PO DAILY 11/02/13 07/02/19 05/08/19 07:00 History Cilostazol 100 mg PO BID 12/26/18 07/02/19 05/08/19 15:00 History Irbesartan [Avapro] 150 mg PO DAILY 12/26/18 07/02/19 05/08/19 07:00 History Citalopram [Celexa] 40 mg PO DAILY #30 tab 01/11/19 07/02/19 05/08/19 07:00 Rx Trazodone HCl 50 mg PO QHS 05/04/19 07/02/19 05/08/19 21:00 History Hydrocodone/Acetaminophen [[place] 1 ea PO Q4-6H PRN PRN #30 tab 05/09/19 07/02/19 Unknown Rx 10-325 Tablet] Ondansetron HCl [Zofran] 4 mg PO Q8HR PRN #30 tab 05/09/19 07/02/19 Unknown Rx Aspirin 81 mg PO DAILY #120 chewtab 07/08/19 Unknown Rx Carvedilol [Coreg] 6.25 mg PO Q12HR #60 tab 07/08/19 Unknown Rx Cefdinir 300 mg PO BID #14 cap 07/08/19 Unknown Rx Furosemide [Lasix] 40 mg PO BID #60 tab 07/08/19 Unknown Rx Ticagrelor [Brilinta] 90 mg PO BID #90 tab 07/08/19 Unknown Rx - History of Present Illness-CP Nature of Presenting Problem: 64 yowf c/o back, neck, cp, weakness, dyspnea on ext, and trouble ambulating for few days. pt was admitted to hospital few days ago for CHF and Nonstemi. pt had heart cath. 3 ASA and 1 nitro w/ems enroute. denies falls or injuries. no o2 at home, was on 90% RA. Location: reports: shoulder (bilat), back Chest Pain Radiation: reports: neck Severity in ED: mild Onset/Duration: other Timing: still present Context/Activities at Onset: reports: none Modifying Factors: improves with: nothing Associated Symptoms: reports: shortness of breath Nitro Today/Relief: 0.4 mg x 1, provided by EMS Aspirin Treatment Today: 81 mg x 3, provided by EMS Prior Chest Pain/Cardiac Workup: reports: cardiac cath Similar Symptoms Previously?: Yes Recently Seen Here or By Another Healthcare Provider: Yes Review of Systems - Adult - REVIEW OF SYSTEMS - ADULT Constitutional: reports: no symptoms reported. denies: chills, fever, night sweats Eyes: reports: no symptoms reported Ears, Nose, Mouth & Throat: reports: no symptoms reported Cardiovascular: reports: see HPI, chest pain. denies: heart murmur, PND, syncope Respiratory: reports: see HPI, dyspnea on exertion. denies: cough, hemoptysis, pleurisy Gastrointestinal: reports: no symptoms reported Genitourinary: reports: no symptoms reported Musculoskeletal: reports: see HPI, back pain, joint pain (bilat shoulder), neck pain. denies: joint swelling, muscle aches, muscle weakness Integumentary: reports: no symptoms reported Neurological: reports: no symptoms reported Psychiatric: reports: no symptoms reported Endocrine: reports: no symptoms reported Hematologic/Lymphatic: reports: no symptoms reported Allergic/Immunologic: reports: no symptoms reported All Other Systems: Reviewed and Negative Past History - Adult - PAST MEDICAL HISTORY-ADULT Review of Records: reports: Nursing Assessment Review, Medications Reviewed, Social history reviewed & non-contributory. Major Childhood Illnesses: reports: denies history Cardiovascular: reports: CHF, HTN, hyperlipidemia, PA Respiratory: reports: asthma Gastrointestinal: reports: GERD, other (diverticulitis) Obstetrical/Gynecological: reports: denies history Genitourinary: reports: denies history Musculoskeletal: reports: denies history Neurological: reports: denies history Endocrine/Immune: reports: denies history Other Conditions: reports: denies history - PRIOR SURGERIES/PROCEDURES Surgical/Procedure History: reports: bowel surgery, joint replacement, other (colon resection, total hip replacement) - PRIOR HOSPITALIZATIONS Prior Hospitalizations: reports: for other non-related, for similar symptoms - IMMUNIZATION STATUS Childhood Immunizations: See Nurse Assessment Flu Vaccine: See Nurse Assessment - FAMILY HISTORY Family History: reviewed, not pertinent - SOCIAL HISTORY Smoking: other (former smoker) Substance Use: none/never Physical Exam-General - PHYSICAL EXAM-ADULT Initial Vital Signs Reviewed: Yes - CONSTITUTIONAL General Appearance: alert, mild distress. negative: cachetic, lethargic, slow to respond - EYES Eyes: PERRL/EOMI - HEAD, EARS, NOSE, MOUTH & THROAT HENMT: normocephalic/atraumatic, moist mucous membranes - NECK Neck: non-tender, full range of motion, supple, normal inspection. negative: limited range of motion, tender lateral, tender midline - RESPIRATORY Respiratory: chest non-tender, lungs clear, normal breath sounds, no pleuratic chest pain, no respiratory distress, no accessory muscle use, crackles (slight crackles on left). negative: respiratory distress, decreased breath sounds, accessory muscle use - CARDIOVASCULAR Cardiovascular: normal peripheral pulses, regular rate, rhythm, no gallop, no JVD, no murmur. negative: no edema, friction rub, irregularly irregular, PMI displaced laterally - GASTROINTESTINAL (ABDOMEN) Abdominal Exam: normal bowel sounds, non tender, soft - MUSCULOSKELETAL Back Exam: normal inspection, no vertebral tenderness. negative: muscle spasm, swelling, vertebral tenderness Extremity: normal range of motion, no calf tenderness, normal capillary refill, pelvis stable, swelling (+2 pitting BLE). negative: non-tender, normal inspection - SKIN Integumentary: normal color, normal turgor, warm/dry - NEUROLOGIC Neurologic: grossly normal, no motor/sensory deficits - PSYCHIATRIC Psych/Mental Status: normal mood/affect, normal thought content, normal thought process, oriented x 3 Progress - PLAN OF CARE/RESULTS Progress/Plan/Lab Results: Vital Signs - 8 hr 07/18/19 22:12 Temperature 98.6 F Pulse Rate 67 Respiratory Rate 14 Blood Pressure 123/57 O2 Sat by Pulse Oximetry 94 L Laboratory Results - last 24 hr 07/18/19 07/18/19 07/18/19 23:06 23:06 23:06 WBC RBC Hgb Hct MCV MCH MCHC RDW Std Deviation Plt Count MPV Immature Gran % (Auto) Neut % (Auto) Lymph % (Auto) Cross % (Auto) Eos % (Auto) Baso % (Auto) Immature Gran # (Auto) Neut # (Auto) Lymph # (Auto) Cross # (Auto) Eos # (Auto) Baso # (Auto) PT INR PTT (Actin FS) Sodium 138 Potassium 2.8 L Chloride 98 Carbon Dioxide 26 Anion Gap 14 BUN 13 Creatinine 0.8 Estimated GFR/1.73 m2 > 60 BUN/Creatinine Ratio 16 Glucose 99 Calculated Osmolality 276 Calcium 7.1 L Total Bilirubin 0.38 AST 14 ALT 11 Alkaline Phosphatase 169 H Troponin T High Sens 19 Yxb-I-Qpwvzopizeh Pept 3098 H Total Protein 6.4 Albumin 3.5 Globulin 2.9 Albumin/Globulin Ratio 1.2 Plasma Lactate 07/18/19 07/18/19 07/18/19 23:06 23:06 23:06 WBC 14.48 H RBC 3.39 L Hgb 8.4 L Hct 27.6 L MCV 81.4 MCH 24.8 L MCHC 30.4 L RDW Std Deviation 16.4 H Plt Count 502 H MPV 9.8 Immature Gran % (Auto) 0.2 Neut % (Auto) 71.1 Lymph % (Auto) 15.8 L Cross % (Auto) 11.4 H Eos % (Auto) 1.0 Baso % (Auto) 0.5 Immature Gran # (Auto) 0.03 Neut # (Auto) 10.29 H Lymph # (Auto) 2.29 Cross # (Auto) 1.65 H Eos # (Auto) 0.15 Baso # (Auto) 0.07 PT 15.4 INR 1.20 PTT (Actin FS) 31.1 Sodium Potassium Chloride Carbon Dioxide Anion Gap BUN Creatinine Estimated GFR/1.73 m2 BUN/Creatinine Ratio Glucose Calculated Osmolality Calcium Total Bilirubin AST ALT Alkaline Phosphatase Troponin T High Sens Eqv-X-Scnkzjplrcl Pept Total Protein Albumin Globulin Albumin/Globulin Ratio Plasma Lactate 0.7 07/19/19 02:10 WBC RBC Hgb Hct MCV MCH MCHC RDW Std Deviation Plt Count MPV Immature Gran % (Auto) Neut % (Auto) Lymph % (Auto) Cross % (Auto) Eos % (Auto) Baso % (Auto) Immature Gran # (Auto) Neut # (Auto) Lymph # (Auto) Cross # (Auto) Eos # (Auto) Baso # (Auto) PT INR PTT (Actin FS) Sodium Potassium Chloride Carbon Dioxide Anion Gap BUN Creatinine Estimated GFR/1.73 m2 BUN/Creatinine Ratio Glucose Calculated Osmolality Calcium Total Bilirubin AST ALT Alkaline Phosphatase Troponin T High Sens Qtr-Q-Zpprxjzfrdq Pept Total Protein Albumin Globulin Albumin/Globulin Ratio Plasma Lactate 0.6 Orders Category Date Time Status NEWS Score 2-4:Order NEWS Lactate Series NOW Care 07/18/19 22:39 Active Nursing- Obtain EKG ONCE Care 07/18/19 22:27 Active cxr [CHEST-1 VIEW] [RAD] Stat Exams 07/18/19 22:27 Taken CBC WITH ELECTRONIC DIFF [HEME] Stat Lab 07/18/19 23:06 Completed COMPREHENSIVE METABOLIC PANEL [CHEM] Stat Lab 07/18/19 23:06 Completed LACTATE, PLASMA [CHEM] Lab 07/18/19 23:06 Completed LACTATE, PLASMA [CHEM] Lab 07/19/19 02:10 Completed LACTATE, PLASMA [CHEM] Lab 07/19/19 04:45 Uncollected PRO B-NATRIURETIC PEPTIDE Stat Lab 07/18/19 23:06 Completed PROTIME WITH INR [COAG] Stat Lab 07/18/19 23:06 Completed PTT [COAG] Stat Lab 07/18/19 23:06 Completed TROPONIN T HIGH SENSITIVITY Stat Lab 07/18/19 23:06 Completed Hydromorphone [Dilaudid] Med 07/18/19 22:28 Discontinued 0.5 mg IV NOW ONE Ondansetron [Zofran] Med 07/18/19 22:28 Discontinued 4 mg IV NOW ONE Potassium Chloride E.r. [Klor-Con] Med 07/19/19 00:36 Discontinued 20 meq PO NOW ONE EKG [EKG] Stat Ther 07/18/19 22:27 Draft Result Diagrams: 07/18/19 23:06 07/18/19 23:06 - EKG 1 Time of EKG reading by physician:: 22:32 EKG Read and Signed by:: Valdez Lu EKG Interpretation (*Must complete 3 of following elements*): Abnormal Rate: 65 (possible inferior infarct, age undetermined) Rhythm: NSR Ono: normal QRS: normal ND Interval: normal ST Wave: normal Comments: cannot rule out anterior infarct, age undetermined - CONSULTS/PCP/HOSPITALIST Notification #1 *Consult/PCP/Hospitalist*: Dr Pa Time Discussed: 03:30 Consult Disposition: Will see in ED, Admit Departure - Departure Date of Disposition Decision: 07/19/19 Time of Disposition Decision: 03:30 DIAGNOSIS: CHF (congestive heart failure), SOB (shortness of breath), Hypoxia Disposition: ADMITTED INPATIENT 09 Certified Medical Emergency: Emergent Condition: Fair Referrals and Follow-Ups: None,PCP [Primary Care Provider] - - Critical Care Note This patient required my direct & personal management of CC.: No Attestation - Physician/ HARSH Attestation Patient care was provided by Advanced Practice Provider:: No The physician spent face to face time with patient:: Yes Advanced Practice Provider documentation review:: Supervising physician onsite and consulted in the evaluation and care of this patient. The physician did have a face to face encounter with the patient. This chart was documented by the indicated scribe, (Sintia Rdz Scribe) and accurately reflects the services I performed and decisions made by me, Valdez Lu MD, as attested by the provider's signature.
[2019-07-19] MEDS ORDERED: LASIX IV SCH (06:46)
[2019-07-19] MEDS ORDERED: LOVENOX SUBQ SCH (06:46)
[2019-07-19] MEDS ORDERED: ZOFRAN IV PRN (06:46)
--- NOTE | 2019-07-19 07:00 | HISTORY AND PHYSICAL ---
PRIMARY CARE PROVIDER: Adiel Arana MD CHIEF COMPLAINT: Chest pain and shortness of breath times several days. HISTORY OF PRESENTING ILLNESS: A 64-year-old female with a history of hypertension, coronary artery disease, psoriasis, Mayer's esophagus, CHF, hyperlipidemia, who had presented to the emergency department with several days' history of having chest pain with radiation to her neck and shortness of breath. She states the symptoms were worsening, and subsequently she had come to the emergency department. In the ED, she was evaluated. Her case was discussed with Cardiology who recommended admission for further management. The patient recently had a heart catheterization with suggestion of medical management. At the time of my examination, patient denied any headache, fever, chills, nausea, vomiting, diarrhea, hemoptysis, melena, weight changes. Just complained of chest pain, neck pain, and dyspnea. PAST MEDICAL HISTORY: Includes hypertension, psoriasis, Mayer's esophagus, GERD, CHF, hyperlipidemia. PAST SURGICAL HISTORY: Bilateral knee surgery, colon resection, hernia repair, left arm surgery. ALLERGIES: Azithromycin, latex, clindamycin, Bactrim, Levaquin, Flagyl. CURRENT MEDICATIONS: Include aspirin 81 mg p.o., atorvastatin 40 mg p.o. daily, carvedilol 6.25 mg p.o. b.i.d., Celebrex 200 mg p.o. b.i.d., cilostazol 100 mg p.o. b.i.d., citalopram 40 mg p.o. daily, Lasix 40 mg p.o. b.i.d., [place] 10 one p.o. every 6 hours, Avapro 150 mg p.o. daily, omeprazole 20 mg p.o. daily, Brilinta 90 mg p.o. b.i.d., trazodone 50 mg p.o. every night at bedtime. SOCIAL HISTORY: She is a former smoker. No history of alcohol or illicit drug use. FAMILY HISTORY: Positive for coronary disease in father. REVIEW OF SYSTEMS: Fourteen-point review of systems is as in HPI. Other systems negative. PHYSICAL EXAMINATION: GENERAL: Cooperative, friendly female. She is resting comfortably now. VITAL SIGNS: Temperature 98.6 degrees, pulse 67, respiration 14 and blood pressure 123/57, saturating 94%. HEENT: Atraumatic, normocephalic. Extraocular movements intact. PERRLA. NECK: No masses. CHEST: Clear to auscultation. CARDIOVASCULAR: Regular rate and rhythm. ABDOMEN: Soft, obese. Positive bowel sounds. EXTREMITIES: Trace edema. NEUROLOGIC: She is awake, alert, oriented x3. GENITOURINARY: No bladder distention. SKIN: Warm. LABORATORIES AND STUDIES: Sodium 138, potassium 2.8, chloride 98, CO2 is 26, BUN is 13, creatinine 0.8, glucose 99. WBCs 14.48, hemoglobin 8.4, hematocrit 27.6, platelets 502,000. Chest x-ray, stable chest. ASSESSMENT: A 64-year-old female with a history of hypertension, congestive heart failure, hyperlipidemia, Mayer's esophagus, who had presented to the emergency department with several days' history of having chest pain and mostly tightness and shortness of breath. She was seen in the emergency department. Her case was discussed with Cardiology who recommended admission for further management assessment. 1. Chest pain. 2. Hypokalemia. 3. Congestive heart failure, diastolic dysfunction. 4. Hypertension. 5. Anemia, unspecified. PLAN: 1. We will admit patient to medical floor with telemetry. 2. Continue with cardiac workup. Check EKG, serial cardiac enzymes. Have patient continue on aspirin. We will use sublingual nitroglycerin p.r.n. chest pain. 3. Consult Cardiology. 4. We will optimize her electrolytes and replace potassium and monitor it. 5. Continue with gentle diuresis with Lasix. 6. Monitor blood pressure closely. 7. We will do iron studies. 8. Put patient on DVT prophylaxis with SCDs. 9. We will continue to follow and reassess and make further recommendations based on patient's clinical course. cc: Juve Pa MD
[2019-07-19] MEDS: POTASSIUM CHLORIDE 20 MEQ/SWI 20 MEQ/100 ML IVPB IV SCH ×2 (09:24→14:00)
[2019-07-19 09:36] LABS: AGAP 12; BUN 11 mg/dL (8-22); CALCIUM 7.5 mg/dL (8.8-10.2); CHLORIDE 101 mmol/L (98-107); COSMO 281; CREATININE 0.8 mg/dL (0.5-0.9); ESTIMATED GFR > 60; GLUCOSE 99 mg/dL (70-104); SODIUM 141 mmol/L (136-145); TCO2 28 mmol/L (25-35)
[2019-07-19 09:42] LABS: BASO# 0.08 X1000 (0.0-0.2); BASO% 0.8 % (0.0-0.8); EOS# 0.23 X1000 (0.0-0.7); EOS% 2.3 % (0.0-10.0); HEMATOCRIT 29.2 % (37.0-47.0); HEMOGLOBIN 8.7 g/dL (12.0-16.0); LYMPH# 1.63 X1000 (1.2-3.4); LYMPH% 16.2 % (20.5-51.1); MCH 24.6 PG (27-31); MCHC 29.8 g/dL (33-37); MCV 82.7 FL (81-99); MONO# 1.43 X1000 (0.11-0.59); MONO% 14.2 % (1.7-9.3); MPV 10.1 FL (7.4-10.4); NEUT# 6.68 X1000 (1.4-6.5); NEUT% 66.5 % (42.2-75.2); PLT 502 X1000 (130-400); RBC 3.53 XMIL (4.2-5.4); RDW 16.7 % (11.5-14.5); WBC 10.05 X1000 (4.8-10.8)
--- NOTE | 2019-07-19 11:09 | EKG Report ---
Test Performed on : 07/19/2019 11:04:40 AM Test Reason : TACHYCARDIA Blood Pressure : / mmHG Vent. Rate : 147 BPM Atrial Rate : 288 BPM P-R Int : 000 ms QRS Dur : 086 ms QT Int : 338 ms P-R-T Axes : 000 043 -68 degrees QTc Int : 528 ms Critical Test Result: High HR Atrial fibrillation. with rapid ventricular response. with premature ventricular or aberrantly conduc vic complexes. Marked ST abnormality, possible anterior subendocardial injury Marked ST abnormality, possible inferolateral subendocardial injury Abnormal ECG When compared with ECG of 18-JUL-2019 22:32, (Unconfirmed) Significant changes have occurred Confirmed by Bill Arana MD ([id number]) on 07/20/2019 9:19:53 PM
[2019-07-19] MEDS ORDERED: ASPIRIN PO ONE (11:10)
[2019-07-19] MEDS ORDERED: CARDIZEM IV ONE (11:16)
[2019-07-19] MEDS ORDERED: ZOFRAN PO PRN (11:16)
[2019-07-19] MEDS ORDERED: ASPIRIN ONE (11:17)
[2019-07-19] MEDS ORDERED: CELEBREX PO SCH (11:30)
[2019-07-19] MEDS ORDERED: LIPITOR PO SCH (11:30)
[2019-07-19] MEDS ORDERED: BRILINTA PO SCH (11:30)
[2019-07-19] MEDS ORDERED: PRILOSEC PO SCH (11:30)
[2019-07-19] MEDS: ASPIRIN PO SCH (11:32)
[2019-07-19] MEDS ORDERED: MAGNESIUM SULFATE 2 GM/S.W.I. 2 GM/50 ML IVPB IV ONE (11:35)
[2019-07-19] MEDS ORDERED: LOVENOX 1 MG/KG SUBQ SCH (11:45)
[2019-07-19] MEDS: CARDIZEM 100 MG/NS 100 MG/100 ML IVPB IV SCH ×2 (11:50→20:25)
[2019-07-19] MEDS ORDERED: MORPHINE IV PRN (12:28)
[2019-07-19] MEDS ORDERED: TORADOL IV PRN (12:40)
[2019-07-19] MEDS: LIPITOR PO SCH (12:49)
[2019-07-19] MEDS: CELEXA PO SCH (12:49)
[2019-07-19] MEDS: PLETAL PO SCH ×2 (12:49→20:51)
[2019-07-19] MEDS: COREG PO SCH ×2 (12:50→20:51)
[2019-07-19] MEDS: AVAPRO PO SCH (12:50)
[2019-07-19] MEDS: NORCO-10 PO PRN ×2 (12:56→20:51)
--- NOTE | 2019-07-19 12:56 | CARDIOLOGY CONSULTATION ---
DATE: 07/19/2019 CHIEF COMPLAINT: Chest pain, shortness of breath for a few days. HISTORY OF PRESENT ILLNESS: Ms. Fregoso is a 64-year-old female who was recently in the hospital with diastolic failure. She had a cardiac catheterization that showed a chronically occluded right coronary. She presented for the above-listed complaints with worsening shortness of breath as well. She reports compliance with her medications including her diuretics. She said diuretics were working resulting in good urine output. She had no episodes of heart racing at home that she was aware of. While in the emergency room, it was noted that she converted into rapid atrial fibrillation. She was not particularly symptomatic at that time, heart rates were in the 150s or higher. PAST MEDICAL HISTORY: 1. Coronary artery disease. Last cardiac catheterization was in June 2019, at that time, the left main had an ostial 20% to 30% lesion. The left anterior descending had mild plaque in the mid vessel on the order of 30% to 40%. The circumflex had no clear evidence of significant plaque. The right coronary was occluded proximally with very scant flow and left- to-right collateralization noted. Ejection fraction on that study was 60% with an EDP of 35. 2. Hypertension. 3. Reported history of cirrhosis. 4. Mayer's esophagus. 5. Diastolic heart failure. 6. Diverticulosis. 7. Hyperlipidemia. 8. Depression. SOCIAL HISTORY: Smoked 30+ years previously. No alcohol or illicit drugs. 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 FAMILY HISTORY: Significant for hypertension. REVIEW OF SYSTEMS: A 10 system review of systems is negative except for those mentioned in HPI. PHYSICAL EXAMINATION: Vital signs: She is afebrile. Heart rates on presentation were in the 60s. She had a heart rate of 138 when she was in atrial fibrillation. Blood pressure 120/80. I do not really have any input or output data. General: No acute distress. HEENT: Oropharynx is moist. Poor dentition. Eye examination, pink conjunctivae, white sclerae. Neck: Examination shows no obvious thyromegaly or thyroid tenderness. Cardiovascular: She is in a tachycardic irregularly irregular rhythm. She has no murmurs. She has no S3. She has no lower extremity edema. She has warm and well-perfused extremities. Chest: Her chest exam sounds relatively clear to auscultation bilaterally. She has no increased work of breathing. Abdomen: Soft, nontender, nondistended. She has no obvious organomegaly. Skin: Warm and dry throughout without any rashes. Neurological: Moving all extremities well. She has no lateralizing deficits. PERTINENT DATA: Chest x-ray was relatively unremarkable compared to previous. She had some mild central vascular prominence. She had an EKG on the at 11:04 that shows rapid atrial fibrillation with some ST depression in the inferior lateral leads. Electrocardiogram on the at 22:32 shows sinus rhythm, mild nonspecific ST-T changes somewhat diffusely. LABORATORY DATA: Shows a white count of 10, hematocrit 29, platelet count of 502,000. Her sodium is 141, potassium is 3, BUN is 11, creatinine 0.8, magnesium level is 1.6. ProBNP yesterday was 3098. Troponin initially was 19 followed by 16. ASSESSMENT: Ms. Fregoso is a 64-year-old female who presented with diastolic failure, found to go into atrial fibrillation in the ER. PLAN: Her potassium is being repleted. I will replete her magnesium. We initiated a diltiazem infusion. I stopped her Brilinta and placed her on treatment dose of Lovenox. I would continue to diurese the patient. Hopefully, we can convert her into sinus rhythm. I would tentatively plan for BETINA cardioversion tomorrow if she remains in atrial fibrillation. Would likely consider an antiarrhythmic at that time. cc: Alan Mcmillan MD
--- NOTE | 2019-07-19 13:04 | PROGRESS NOTE ---
DATE: 07/19/2019 I was called to see the patient because she was in atrial fibrillation with RVR. Cardiology had been consulted and they were actively dealing with her and had started her on a Cardizem drip. SUBJECTIVE: She has been complaining of back and neck pain for several days. Unclear what the etiology is of that. Certainly could be an anginal equivalent. OBJECTIVE: Blood pressure is 120/80, heart rate of 138, respiratory rate 24, temperature 98.5 degrees, 95% on 2 L.Cardiovascular: Her heart rate was irregularly irregular and tachy. Pulmonary: Bilateral breath sounds clear to auscultation. GI: Soft, nontender, nondistended. Bowel sounds are positive. LABORATORY DATA: Her potassium was still a little bit low. White count 10, hemoglobin and hematocrit 8 and 29, platelets 502,000, potassium still 3. ASSESSMENT AND PLAN: 1. Atrial fibrillation with rapid ventricular response. We are going to continue to monitor that. She is on Cardizem. Her Coreg has been restarted and she will see how things go. 2. CHF diastolic. She seems to be fairly well compensated. She is being diuresed, but her x- rays do not really show florid failure so I think we need to be cautious not upset her electrolytes, which may have triggered her atrial fibrillation in addition to the fact that she had not gotten her home medications. She does qualify for anticoagulation. Cardiology has started enoxaparin. At this point we do not know if we are going to need to cardiovert her, so we probably will not want to start any long-acting medications. 3. Ischemic heart disease chest pain. She had a recent catheterization which apparently showed I believe an occluded RCA and she had 30 to 40% lesions in her left anterior and her left main. EF was intact. She is felt to have a diastolic heart failure so we are working on rate and blood pressure control. DISPOSITION: Pending clinical status. Obviously she will need to be at least in the [facility]. I am not sure where her transfer orders are set for. cc: Basilio Ritchie MD
[2019-07-19] MEDS: DESYREL PO SCH (20:51)
[2019-07-19] MEDS: LOVENOX SUBQ SCH (20:51)
[2019-07-19] MEDS: PRILOSEC PO SCH (20:51)
[2019-07-20 06:39] LABS: BASO# 0.07 X1000 (0.0-0.2); BASO% 0.7 % (0.0-0.8); EOS# 0.49 X1000 (0.0-0.7); EOS% 4.8 % (0.0-10.0); HEMATOCRIT 28.1 % (37.0-47.0); HEMOGLOBIN 8.6 g/dL (12.0-16.0); LYMPH# 2.63 X1000 (1.2-3.4); LYMPH% 25.5 % (20.5-51.1); MCH 25.1 PG (27-31); MCHC 30.6 g/dL (33-37); MCV 82.2 FL (81-99); MONO# 1.32 X1000 (0.11-0.59); MONO% 12.8 % (1.7-9.3); MPV 9.9 FL (7.4-10.4); NEUT# 5.79 X1000 (1.4-6.5); NEUT% 56.2 % (42.2-75.2); PLT 527 X1000 (130-400); RBC 3.42 XMIL (4.2-5.4); RDW 16.1 % (11.5-14.5)
[2019-07-20 07:14] LABS: POTASSIUM 3.1 mmol/L (3.5-5.1)
[2019-07-20 07:39] LABS: IRON SATURATION 9 %; TIBC 276 ug/dL; TOTAL IRON 26 ug/dL (49-151); UNBOUND IRON 250 ug/dL (112-346)
--- NOTE | 2019-07-20 07:43 | EKG Report ---
Test Performed on : 07/20/2019 07:02:07 AM Test Reason : afib Blood Pressure : / mmHG Vent. Rate : 116 BPM Atrial Rate : 117 BPM P-R Int : 000 ms QRS Dur : 092 ms QT Int : 368 ms P-R-T Axes : 000 042 -23 degrees QTc Int : 511 ms Atrial fibrillation. with rapid ventricular response. with premature ventricular or aberrantly conduc vic complexes. ST & T wave abnormality, consider inferior ischemia Abnormal ECG When compared with ECG of 19-JUL-2019 11:04, (Unconfirmed) ST less depressed in Inferior leads ST no longer depressed in Lateral leads Confirmed by Bill Arana MD ([id number]) on 07/20/2019 9:31:35 PM
[2019-07-20] MEDS: NORCO-10 PO PRN (07:48)
[2019-07-20] MEDS: PRILOSEC PO SCH ×2 (08:22→21:06)
[2019-07-20] MEDS: LIPITOR PO SCH (08:23)
[2019-07-20] MEDS: AVAPRO PO SCH (08:23)
[2019-07-20] MEDS: CELEXA PO SCH (08:23)
[2019-07-20] MEDS: COREG PO SCH (08:23)
[2019-07-20] MEDS: ASPIRIN PO SCH (08:23)
[2019-07-20] MEDS: PLETAL PO SCH ×2 (08:23→21:06)
[2019-07-20] MEDS: LOVENOX SUBQ SCH ×2 (08:24→21:06)
[2019-07-20] MEDS: LIDODERM TOP SCH (08:29)
[2019-07-20] MEDS ORDERED: SAMSCA PO ONE (08:44)
[2019-07-20] MEDS ORDERED: LASIX IV SCH (09:00)
[2019-07-20] MEDS: POTASSIUM CHLORIDE 20% LIQUID PO SCH ×2 (09:14→15:55)
--- NOTE | 2019-07-20 14:49 | CARDIOLOGY PROGRESS NOTE ---
DATE: 07/20/2019 SUBJECTIVE: The patient continues to complain of some shortness of breath. She denies any overt heart racing. OBJECTIVE: Vital Signs: She is afebrile. Heart rate of 87. Blood pressure 88/47. Her I's and O's are somewhat difficult to track. She has a number of continent voids not measured. General: No acute distress. Cardiovascular: She sounds to be in an irregularly irregular rhythm. She has no murmurs. She has no S3. She has no lower extremity edema. Lungs: Her chest exam has mild basilar rales. No increased work of breathing. Abdomen: Soft, nontender. PERTINENT DATA: White count 10.3, hematocrit 28, platelet count 527,000 sodium 133 potassium 3.1 BUN 15 creatinine is 1. Magnesium level is 2.0. ASSESSMENT: Ms. Fregoso is a 64-year-old female presenting with atrial fibrillation in heart failure. PLAN: I gave her a dose of Samsca as well as repleted her potassium. We will tentatively plan on transesophageal echocardiogram cardioversion in the morning. EKG demonstrated atrial fibrillation. She does have a prolonged QTc. Antiarrhythmic choice in this patient is difficult and may need to consider amiodarone. cc: Alan Mcmillan MD
--- NOTE | 2019-07-20 17:48 | PROGRESS NOTE ---
DATE: 07/20/2019 SUBJECTIVE: She looks okay. No major complaints. OBJECTIVE: Vital Signs: Blood pressure is 155, heart rate of 103, respiratory rate 17, temperature 98.7 degrees, 99% on 2 L. Cardiovascular: Regular rate and rhythm. Pulmonary: Bilateral breath sounds clear to auscultation. GI: Soft, nontender, nondistended. Bowel sounds are positive. LABORATORY DATA: Her white count is 10, hemoglobin 8 and hematocrit 28, platelets 527,000, potassium 3.1, creatinine 1.0. PROBLEM LIST: 1. Atrial fibrillation with rapid ventricular response. She is on Lopressor now alone. We stopped Cardizem because of low blood pressure. I have stopped her Avapro as well, and she seems to be doing okay. 2. Hypokalemia. We will continue supplementation. I do not think she is that overloaded, so I am not going to push to diurese her specially with her hypotension. So, we will continue to monitor. 3. Hyponatremia. She is getting Samsca per Cardiology. She seems to be doing okay from that standpoint. 4. Hypokalemia. We will also supplement and follow. 5. Ischemic heart disease. She has ruled out from that standpoint. DISPOSITION: Plan is for BETINA cardioversion tomorrow at the discretion of Cardiology, and then we will look at long-term anticoagulation. Obviously, we are holding anything at this point until she is somewhat improved. cc: Basilio Ritchie MD
[2019-07-20] MEDS: LOPRESSOR PO SCH (21:06)
[2019-07-20] MEDS: DESYREL PO SCH (21:06)
--- NOTE | 2019-07-21 00:47 | EKG Report ---
Test Performed on : 07/20/2019 6:24:14 PM Test Reason : sr vs afib Blood Pressure : / mmHG Vent. Rate : 065 BPM Atrial Rate : 065 BPM P-R Int : 156 ms QRS Dur : 086 ms QT Int : 440 ms P-R-T Axes : 045 037 057 degrees QTc Int : 457 ms Normal sinus rhythm. Normal ECG When compared with ECG of 20-JUL-2019 07:02, (Unconfirmed) Sinus rhythm. has replaced Atrial fibrillation. Vent. rate has decreased BY [address] no longer depressed in Inferior leads T wave inversion no longer evident in Inferior leads Confirmed by Bill Arana MD ([id number]) on 07/23/2019 12:17:51 PM
[2019-07-21] MEDS: LOPRESSOR PO SCH (01:48)
[2019-07-21] MEDS: LOVENOX SUBQ SCH ×2 (05:57→09:20)
[2019-07-21] MEDS: ASPIRIN PO SCH ×2 (05:58→09:20)
[2019-07-21] MEDS: PLETAL PO SCH ×3 (05:58→20:13)
[2019-07-21] MEDS: CELEXA PO SCH ×2 (05:58→09:21)
[2019-07-21] MEDS: LIDODERM TOP SCH ×2 (05:58→09:21)
[2019-07-21] MEDS: LIPITOR PO SCH ×2 (05:58→09:20)
[2019-07-21] MEDS: PRILOSEC PO SCH ×3 (05:58→20:13)
[2019-07-21 07:07] LABS: BASO# 0.07 X1000 (0.0-0.2); BASO% 0.6 % (0.0-0.8); EOS# 0.51 X1000 (0.0-0.7); EOS% 4.2 % (0.0-10.0); HEMATOCRIT 28.1 % (37.0-47.0); HEMOGLOBIN 8.8 g/dL (12.0-16.0); IMM GRAN# 0.02 X1000 (0.0-0.04); IMM GRAN% 0.2 % (0.0-0.5); MCH 25.6 PG (27-31); MCHC 31.3 g/dL (33-37); MCV 81.7 FL (81-99); MONO# 1.26 X1000 (0.11-0.59); MONO% 10.5 % (1.7-9.3); MPV 9.9 FL (7.4-10.4); NEUT# 7.75 X1000 (1.4-6.5); NEUT% 64.5 % (42.2-75.2); PLT 532 X1000 (130-400); RBC 3.44 XMIL (4.2-5.4); RDW 16.1 % (11.5-14.5); WBC 12.01 X1000 (4.8-10.8)
[2019-07-21 07:31] LABS: CALCIUM 8.6 mg/dL (8.8-10.2); CREATININE 1.2 mg/dL (0.5-0.9); MAGNESIUM 2.1 mg/dL (1.5-2.7); POTASSIUM 3.9 mmol/L (3.5-5.1)
[2019-07-21] MEDS ORDERED: SODIUM CHLORIDE 0.9% 20 ML ONE (08:30)
[2019-07-21] MEDS ORDERED: XYLOCAINE 2% VISCOUS ONE (08:32)
--- NOTE | 2019-07-21 10:46 | CARDIOLOGY PROGRESS NOTE ---
DATE: 07/21/2019 SUBJECTIVE: The patient feels much better today. She denies any heart racing, shortness of breath, or chest pain. She is sitting up in bed at this time eating breakfast. OBJECTIVE: Vital Signs: She is afebrile. Her heart rate is 70. Blood pressure is 136/34. Her current input and output are 1,585 mL of intake with 800 mL of output making her balance 785 positive. General: She is in no acute distress. Cardiovascular: Heart rate appears to be regular at this time. No murmurs, rubs, or gallops appreciated. She has no S3. Her lower extremities are warm, dry, and there is no significant edema. Respiratory: Lungs are clear to auscultation anteriorly and posteriorly she has a mild decrease in her bases with a few rales. There is no increased work of breathing. Gastrointestinal: The abdomen is soft, nontender, and nondistended with positive bowel sounds. Neck: Supple with no JVD. Neuro: She is alert and oriented time 3 with no acute deficits. Moving all extremities. PERTINENT DATA: Sodium 137, potassium 3.9, BUN 18, and creatinine 1.2. Her magnesium is 2.1. Her proBNP is 1,198 which is down from 3,098 that was done on 07/18/2019. White blood cell count is 12.01, hemoglobin 8.8, hematocrit 28.1, and platelets 532. EKG this morning done at 6:48 a.m. revealed that the patient had converted back to sinus rhythm with occasional PVCs. At this time she is maintaining sinus rhythm with heart rates in the 70s. ASSESSMENT: Ms. Fregoso is a 64-year-old female who presented with atrial fibrillation and components of heart failure. The patient was scheduled for a BETINA cardioversion this morning, however, overnight she converted back to sinus rhythm and is maintaining it at this time. Therefore, her procedure was canceled. We will continue medical management. PLAN: At this time Ms. Fregoso maintains sinus rhythm therefore we will continue her on medical therapy with Betapace 40 mg p.o. b.i.d. and we will monitor her QTc daily. Current QTc on the EKG this morning was 488 ms. Currently she is on Lovenox 100 mg subcutaneously b.i.d. for anticoagulation. We will transition her to long-term anticoagulation with Eliquis at the time of discharge. I will discuss with Dr. Mcmillan concerning plans for additional need for diuresis and we will optimize medical therapy. ADDENDUM: Patient is in NSR and presently has had some issues with hypotension. WIll continue on betapace for the time being and trend BP's overnight. QTc will need to be watched closely. She will need to remain in the hospital for EKG monitoring for 4 doses of betapace. Her only other anti-arrhythmic choice is amiodarone given her history of heart failure and CAD. Consideration for EP referral as an outpatient. Lovenox will be changed to apixaban. Dictated by MOI Soto for Alan Mcmillan MD cc: MOI Soto MD [facility]
[2019-07-21] MEDS: BETAPACE PO SCH ×2 (11:49→20:12)
[2019-07-21] MEDS: NORCO-10 PO PRN ×2 (11:50→21:08)
--- NOTE | 2019-07-21 16:05 | PROGRESS NOTE ---
DATE: 07/21/2019 SUBJECTIVE: The patient has no major complaints. OBJECTIVE: Vital signs: Blood pressure is 148/36, heart rate 73, respiratory 16, temperature 93 degrees, 98% on 2 L. Cardiovascular: Regular rate and rhythm. Pulmonary: Bilateral breath sounds clear to auscultation. Gastrointestinal: Soft, nontender, nondistended. Bowel sounds are positive. LABORATORY DATA: White count 12, hemoglobin and hematocrit 8 and 28, platelets 532,000. Basic was normal. ProBNP is gone from 3098 to 1198. PROBLEM LIST: 1. Atrial fibrillation. She has spontaneously converted. She is now on sotalol, which we are going to load, and we will see how she does from that standpoint. She has been switched to apixaban, so we will continue to follow. 2. Hypertension is stable. Her blood pressure is improved. We have held her Avapro. Continue to follow. 3. Hyponatremia, that is also improved. She does have a little bit of kidney decrease. We are holding everything nephrotoxic. 4. Acute kidney injury. We will continue to monitor. We may give her a little bit of fluid back if her kidney function continues to deteriorate. DISPOSITION: Anticipate discharge at the discretion of Cardiology maybe in the next 1 to 2 days. cc: Basilio Ritchie MD
[2019-07-21] MEDS: ELIQUIS PO SCH (20:12)
[2019-07-21] MEDS: DESYREL PO SCH (20:12)
[2019-07-22 07:54] LABS: BASO# 0.08 X1000 (0.0-0.2); EOS# 0.49 X1000 (0.0-0.7); EOS% 6.3 % (0.0-10.0); HEMATOCRIT 26.5 % (37.0-47.0); LYMPH% 25.7 % (20.5-51.1); MCH 24.8 PG (27-31); MCHC 30.2 g/dL (33-37); MONO# 1.11 X1000 (0.11-0.59); MONO% 14.3 % (1.7-9.3); MPV 9.5 FL (7.4-10.4); NEUT# 4.09 X1000 (1.4-6.5); NEUT% 52.7 % (42.2-75.2); PLT 519 X1000 (130-400); RBC 3.23 XMIL (4.2-5.4); RDW 15.9 % (11.5-14.5); WBC 7.77 X1000 (4.8-10.8)
[2019-07-22 08:11] LABS: CREATININE 1.2 mg/dL (0.5-0.9); POTASSIUM 3.9 mmol/L (3.5-5.1)
[2019-07-22] MEDS: PRILOSEC PO SCH ×2 (08:52→21:19)
[2019-07-22] MEDS: ASPIRIN PO SCH (08:52)
[2019-07-22] MEDS: BETAPACE PO SCH ×2 (08:52→21:19)
[2019-07-22] MEDS: ELIQUIS PO SCH ×2 (08:52→21:20)
[2019-07-22] MEDS: LIPITOR PO SCH (08:53)
[2019-07-22] MEDS: CELEXA PO SCH (08:53)
[2019-07-22] MEDS: PLETAL PO SCH ×2 (08:53→21:19)
[2019-07-22] MEDS: LIDODERM TOP SCH (12:25)
--- NOTE | 2019-07-22 13:46 | CARDIOLOGY PROGRESS NOTE ---
DATE: 07/22/2019 CHIEF COMPLAINT: Shortness of breath, irregular heartbeat. SUBJECTIVE: Mrs. Fregoso is feeling better. She has converted to sinus rhythm and has been transferred to the Medical floor. Daughter is at the bedside. She is just complaining of feeling weak. OBJECTIVE: Vital signs: Blood pressure is 135/44, temperature 98.1 degrees, pulse 61, respirations 19. General: She is awake, alert, in no distress. HEENT: Unremarkable. Chest: Sounds clear to auscultation and percussion. Heart: Sounds are regular and rhythmic. No gallop or murmur. Abdomen: Nontender. Extremities: Showed no edema. Neurologic exam: Follows commands, moves all 4 extremities. BLOOD WORK: Sodium 136, potassium 3.9, BUN 20, creatinine 1.2. ProBNP has come down from admission 3098 down to 1272 pg/mL. Her EKG shows sinus rhythm. The rate is 67 beats per minute. No ischemia noted on the one done this morning at 6:12 a.m. IMPRESSION: 1. Patient with paroxysmal atrial fibrillation. 2. Patient with coronary heart disease. 3. Congestive heart failure, chronic diastolic probably plus some systolic component. Her heart catheterization from 07/06 showed occlusion of the right coronary artery with normal ejection fraction. Left anterior descending had 30% to 40% stenosis. RECOMMENDATIONS: At this time, I would suggest to continue present medical therapy as we are doing with sotalol 40 mg twice a day. Continue Lipitor, aspirin, apixaban. Patient to start moving up and about, we will call Physical Therapy to help. Discharge whenever Primary service deems appropriate. cc: Luis Mayorga MD
--- NOTE | 2019-07-22 17:32 | PROGRESS NOTE ---
DATE: 07/22/2019 SUBJECTIVE: She looks better today. OBJECTIVE: Blood pressure is pretty stable 135/44, heart rate of 61, respiratory rate 18, temperature 98.1 degrees, 97% on 2 L.Cardiovascular: Regular rate and rhythm. Pulmonary: Bilateral breath sounds clear to auscultation. GI: Soft, nontender, nondistended. Bowel sounds are positive. LABORATORY DATA: White count 7, hemoglobin and hematocrit 8 and 26, platelets 519,000. Basic looked okay. Creatinine 1.2. PROBLEM LIST: 1. Atrial fibrillation. She is rate controlled on sotalol. I think her EKGs have been okay see this morning. I do not have an EKG from this morning despite them being ordered b.i.d. I did not see that. 2. Coronary artery disease, which is stable on current medications. 3. Congestive heart failure appears to be compensated. DISPOSITION: I think she is probably able to go home. I agree we do need to work on ambulation for her. She has been out of bed minimally, but I am going to hope to be hopeful that she is stable for discharge home with home PT versus rehab but Dr. Diana has put in a PT consult which is I think is perfectly reasonable to assess the situation. Hopefully we will get that done this weekend. cc: Basilio Ritchie MD
--- NOTE | 2019-07-22 18:13 | EKG Report ---
Test Performed on : 07/22/2019 06:12:43 AM Test Reason : afib, sotalol Blood Pressure : / mmHG Vent. Rate : 067 BPM Atrial Rate : 067 BPM P-R Int : 158 ms QRS Dur : 082 ms QT Int : 460 ms P-R-T Axes : 046 051 058 degrees QTc Int : 486 ms Sinus rhythm. with premature atrial complexes. Otherwise normal ECG When compared with ECG of 21-JUL-2019 06:48, (Unconfirmed) premature ventricular complexes. are no longer present premature atrial complexes. are now present Confirmed by Bill Arana MD ([id number]) on 07/23/2019 12:40:22 PM
[2019-07-22] MEDS: NORCO-10 PO PRN (21:19)
[2019-07-22] MEDS: DESYREL PO SCH (21:20)
--- NOTE | 2019-07-22 21:29 | EKG Report ---
Test Performed on : 07/22/2019 9:12:39 PM Test Reason : afib, sotalol Blood Pressure : / mmHG Vent. Rate : 066 BPM Atrial Rate : 066 BPM P-R Int : 158 ms QRS Dur : 082 ms QT Int : 430 ms P-R-T Axes : 043 043 054 degrees QTc Int : 450 ms Normal sinus rhythm. Normal ECG When compared with ECG of 22-JUL-2019 06:12, (Unconfirmed) premature atrial complexes. are no longer present Confirmed by Bill Arana MD ([id number]) on 07/25/2019 7:26:45 PM
[2019-07-23 07:31] LABS: AGAP 9; BUN 15 mg/dL (8-22); CALCIUM 9.3 mg/dL (8.8-10.2); CHLORIDE 108 mmol/L (98-107); COSMO 285; CREATININE 0.9 mg/dL (0.5-0.9); ESTIMATED GFR > 60; GLUCOSE 89 mg/dL (70-104); MAGNESIUM 2.1 mg/dL (1.5-2.7); POTASSIUM 4.5 mmol/L (3.5-5.1); SODIUM 143 mmol/L (136-145); TCO2 26 mmol/L (25-35)
[2019-07-23] MEDS: BETAPACE PO SCH (09:32)
[2019-07-23] MEDS: PRILOSEC PO SCH (09:33)
[2019-07-23] MEDS: ASPIRIN PO SCH (09:33)
[2019-07-23] MEDS: PLETAL PO SCH (09:33)
[2019-07-23] MEDS: LIPITOR PO SCH (09:33)
[2019-07-23] MEDS: CELEXA PO SCH (09:33)
[2019-07-23] MEDS: ELIQUIS PO SCH (09:33)
[2019-07-23] MEDS: LIDODERM TOP SCH (09:34)
--- NOTE | 2019-07-23 12:22 | EKG Report ---
Test Performed on : 07/21/2019 06:48:44 AM Test Reason : SR AFIB Blood Pressure : / mmHG Vent. Rate : 065 BPM Atrial Rate : 065 BPM P-R Int : 152 ms QRS Dur : 086 ms QT Int : 470 ms P-R-T Axes : 064 058 065 degrees QTc Int : 488 ms Sinus rhythm. with occasional premature ventricular complexes. Otherwise normal ECG When compared with ECG of 20-JUL-2019 18:24, (Unconfirmed) premature ventricular complexes. are now present Confirmed by Bill Arana MD ([id number]) on 07/23/2019 12:21:43 PM
--- NOTE | 2019-07-23 12:30 | EKG Report ---
Test Performed on : 07/23/2019 07:45:26 AM Test Reason : afib, sotalol Blood Pressure : / mmHG Vent. Rate : 065 BPM Atrial Rate : 065 BPM P-R Int : 156 ms QRS Dur : 084 ms QT Int : 454 ms P-R-T Axes : 052 048 057 degrees QTc Int : 472 ms Normal sinus rhythm. Normal ECG When compared with ECG of 22-JUL-2019 21:12, (Unconfirmed) No significant change was found Confirmed by Bill Arana MD ([id number]) on 07/23/2019 12:49:24 PM
[2019-07-23 16:28] VITALS: BP 163/50
--- NOTE | 2019-07-23 17:54 | DISCHARGE SUMMARY ---
ADMISSION DATE: 07/19/2019 DISCHARGE DATE: 07/23/2019 DISCHARGE DIAGNOSES: 1. Atrial fibrillation with rapid ventricular response. 2. Coronary artery disease with minimal nonobstructive disease. 3. Congestive heart failure, diastolic. 4. Acute on chronic hypoxic respiratory failure. CONSULTATIONS: Dr. Mcmillan, Cardiology. PROCEDURES: None. HOSPITAL COURSE: Briefly, this is a 64-year-old female complaining of chest pain and shortness of breath. Workup was negative for ischemic event plus she just had a cardiac cath that showed that she was placed on diltiazem and had improvement. She was transitioned to Lovenox and taken off Brilinta. She slowly improved. She has spontaneously converted. There were initially some plans to do a BEITNA, but she spontaneously converted and then she was loaded on sotalol which she tolerated without difficulty. She had a little bit of hyponatremia which was treated with Samsca. She is a bit anemic, but her hemoglobin and hematocrit have been relatively stable. Potassium 4.5. Her proBNP which was initially 3098 was down to 1272 prior to discharge. She was felt stable for discharge. Physical Therapy assessed her and she walked about 60 feet. She qualified for home oxygen and that was set up prior to discharge. DISCHARGE MEDICATIONS: Trazodone 50, Celebrex 200 b.i.d., Lipitor 40, omeprazole 20, aspirin 81 daily, Betapace 40 b.i.d., Eliquis 5 b.i.d., Lasix 40 b.i.d., [place] p.r.n., Pletal 100 b.i.d., and Zanaflex 4 b.i.d. p.r.n. spasms. I would be careful with Celebrex because she did have some renal insufficiency. Overall she seemed to be doing better. DISPOSITION: Home. FOLLOWUP: [facility] and her PCP in 1 week. cc: MD Alan Villafana MD
[2019-07-23] MEDS: NORCO-10 PO PRN (18:13)
== END 2019-07-23 21:53 | disposition home or self-care (01) | DRG 280 ==
LOC: ED 21:17 → INTOOBSV 07-19 06:15 → OBSVTOIN 07-19 06:15 → SUATTDRO 07-19 06:15 → EDIPHOLD 07-19 06:15 → 2N 07-19 14:58 → 3N 07-21 18:12
PROVIDERS: ATTEND Internal Medicine

== ENCOUNTER 2019-08-09 18:18 | Inpatient (IN) ==
--- NOTE | 2019-08-09 18:50 | Diag Imaging Result Doc PS360 ---
EXAM: CHEST-1 VIEW INDICATION: SOB TECHNIQUE: One view COMPARISON: 07/18/2019 FINDINGS: There are extensive infiltrates throughout both lungs with a basilar predominance. These are predominantly interstitial indicating edema. There is also marked pulmonary venous congestion. There is probably a small effusion on the left. Cardiac silhouette is borderline prominent. IMPRESSION: Pulmonary edema and pulmonary venous congestion as described. Electronically signed by Jelani Rdz 08/09/2019 6:47 PM
[2019-08-09] MEDS ORDERED: LASIX IV ONE (19:11)
[2019-08-09 19:15] LABS: BASO# 0.12 X1000 (0.0-0.2); BASO% 0.8 % (0.0-0.8); EOS# 0.24 X1000 (0.0-0.7); EOS% 1.6 % (0.0-10.0); HEMATOCRIT 28.9 % (37.0-47.0); HEMOGLOBIN 8.7 g/dL (12.0-16.0); IMM GRAN# 0.02 X1000 (0.0-0.04); IMM GRAN% 0.1 % (0.0-0.5); LYMPH# 1.29 X1000 (1.2-3.4); LYMPH% 8.8 % (20.5-51.1); MCH 24.4 PG (27-31); MCHC 30.1 g/dL (33-37); MONO# 1.31 X1000 (0.11-0.59); MONO% 8.9 % (1.7-9.3); MPV 9.2 FL (7.4-10.4); NEUT% 79.8 % (42.2-75.2); PLT 595 X1000 (130-400); RBC 3.57 XMIL (4.2-5.4); RDW 15.9 % (11.5-14.5); WBC 14.68 X1000 (4.8-10.8)
[2019-08-09 19:24] LABS: INR 1.61; PROTIME 19.5 Seconds (11.0-16.0)
[2019-08-09 19:25] LABS: PTT 35.1 Seconds (22.3-41.8)
[2019-08-09 19:43] LABS: AGAP 15; ALBUMIN 3.5 g/dL (3.5-5.0); ALKALINE PHOSPHATASE 244 U/L (32-104); BUN 17 mg/dL (8-22); CHLORIDE 101 mmol/L (98-107); CK PROFILE 50 U/L (24-173); COSMO 275; CREATININE 0.7 mg/dL (0.5-0.9); ESTIMATED GFR > 60; GLUCOSE 117 mg/dL (70-104); GOT 14 U/L (10-30); GPT 9 U/L (10-36); POTASSIUM 3.6 mmol/L (3.5-5.1); SODIUM 136 mmol/L (136-145); TCO2 20 mmol/L (25-35); TOTAL BILIRUBIN 0.59 mg/dL (0.20-1.00); TOTAL PROTEIN 7.1 g/dL (6.3-8.3)
--- NOTE | 2019-08-09 20:13 | PROVIDER DOCUMENTATION ---
This chart was entered by Niru Sibley Scribe, acting as scribe for Golden Magana MD. HPI-Respiratory General - General Stated Complaint: RESP DISTRESS Time Seen by Provider: 08/09/19 18:23 Source: patient, EMS Allergies/Adverse Reactions: Patient Allergies Allergy/AdvReac Type Severity Reaction Status Date / Time azithromycin Allergy Severe DIARRHEA Verified 08/09/19 19:11 latex Allergy Severe RASH Verified 08/09/19 19:11 clindamycin Allergy Unknown Verified 08/09/19 19:11 erythromycin base Allergy Unknown Verified 08/09/19 19:11 levofloxacin [From Levaquin] Allergy SWELLING Verified 08/09/19 19:11 metronidazole [From Flagyl] Allergy SWELLING Verified 08/09/19 19:11 sulfamethoxazole Allergy Unknown Verified 08/09/19 19:11 [From Septra] trimethoprim [From Septra] Allergy Unknown Verified 08/09/19 19:11 metal Allergy Severe RASH Uncoded 08/09/19 19:11 mycin Allergy SWELLING Uncoded 08/09/19 19:11 AND JOINT ACHES Home Medications: Home Medication List Medication Instructions Recorded Confirmed Last Taken Type Celecoxib [Celebrex] 200 mg PO BID 01/12/12 07/19/19 05/08/19 15:00 History Omeprazole 20 mg PO DAILY 05/24/12 07/19/19 05/08/19 07:00 History ATORVAstatin [Lipitor] 40 mg PO DAILY 11/02/13 07/19/19 05/08/19 07:00 History Citalopram [Celexa] 40 mg PO DAILY #30 tab 01/11/19 07/19/19 05/08/19 07:00 Rx Trazodone HCl 50 mg PO QHS 05/04/19 07/19/19 05/08/19 21:00 History Hydrocodone/Acetaminophen [[place] 1 ea PO Q4-6H PRN PRN #30 tab 05/09/19 07/19/19 Unknown Rx 10-325 Tablet] Ondansetron HCl [Zofran] 4 mg PO Q8HR PRN #30 tab 05/09/19 07/19/19 Unknown Rx Aspirin 81 mg PO DAILY #120 chewtab 07/08/19 07/19/19 Unknown Rx Furosemide [Lasix] 40 mg PO BID #60 tab 07/08/19 07/19/19 Unknown Rx Apixaban [Eliquis] 5 mg PO BID #60 tab 07/23/19 Unknown Rx Cilostazol [Pletal] 100 mg PO BID tab 07/23/19 Unknown Rx Sotalol [Betapace] 40 mg PO BID #60 tab 07/23/19 Unknown Rx Tizanidine [Zanaflex] 4 mg PO BID PRN #60 tab 07/23/19 Unknown Rx - History of Present Illness-Resp Nature of Presenting Problem: pt is a 64 yr old female presenting with increased shortness of breath dyspnea on minimal exertion, wheezing and edema. pt reprots hx of same. no relief with home o2 or neb tx. pt denies any fever/chills. no chest pain. pt discharged from this facility 2 weeks ago Quality of Pain: reports: none Severity in ED: reports: moderate Onset/Duration: reports: 2 days ago Timing: reports: changing over time, getting worse Exposure: reports: unknown cause Cough Quality/Degree: reports: moderate, dry cough Episode Frequency: frequent episodes Current Respiratory Medication Therapy: Initiated albuterol (no relief) Modifying Factors: improves with: exertion (minimal exertion worsens dyspnea), albuterol nebulizer (no relief) Associated Symptoms: reports: cough, shortness of breath, wheezing. denies: chest pain/soreness, fever/chills, flu-like symptoms Similar Symptoms Previously?: Yes Recently seen or treated by another doctor?: Yes Review of Systems - Adult - REVIEW OF SYSTEMS - ADULT Constitutional: denies: chills, fever Eyes: reports: no symptoms reported Ears, Nose, Mouth & Throat: reports: no symptoms reported Cardiovascular: reports: no symptoms reported Respiratory: reports: chronic cough, cough, dyspnea on exertion, shortness of breath, wheezing Gastrointestinal: reports: no symptoms reported Genitourinary: reports: no symptoms reported Musculoskeletal: denies: muscle aches, muscle weakness Integumentary: reports: no symptoms reported Neurological: denies: dizziness/vertigo, headache/migraines Psychiatric: reports: no symptoms reported Endocrine: reports: no symptoms reported Hematologic/Lymphatic: reports: no symptoms reported Allergic/Immunologic: reports: no symptoms reported All Other Systems: Reviewed and Negative Past History - Adult - PAST MEDICAL HISTORY-ADULT Review of Records: reports: Old Records Reviewed, Nursing Assessment Review, Medications Reviewed, Social history reviewed & non-contributory. Major Childhood Illnesses: reports: denies history Cardiovascular: reports: HTN, hyperlipidemia Respiratory: reports: asthma Gastrointestinal: reports: GERD, other (diverticulitis) Obstetrical/Gynecological: reports: denies history Genitourinary: reports: denies history Musculoskeletal: reports: denies history Neurological: reports: denies history Endocrine/Immune: reports: denies history Other Conditions: reports: denies history - PRIOR SURGERIES/PROCEDURES Surgical/Procedure History: reports: other (colon resection, total hip replacement) - PRIOR HOSPITALIZATIONS Prior Hospitalizations: reports: for other non-related, for similar symptoms - IMMUNIZATION STATUS Childhood Immunizations: See Nurse Assessment Flu Vaccine: See Nurse Assessment - FAMILY HISTORY Family History: reviewed, not pertinent - SOCIAL HISTORY Smoking: quit greater than 1 year Substance Use: denies Living Situation: family Physical Exam-General - PHYSICAL EXAM-ADULT Initial Vital Signs Reviewed: Yes - CONSTITUTIONAL General Appearance: alert, no apparent distress - EYES Eyes: PERRL/EOMI - HEAD, EARS, NOSE, MOUTH & THROAT HENMT: normocephalic/atraumatic, moist mucous membranes, normal ENT inspection - NECK Neck: non-tender, full range of motion, supple, normal inspection - RESPIRATORY Respiratory: chest non-tender, no pleuratic chest pain, no respiratory distress (pt speaking in full sentences without difficulty), no accessory muscle use, wheezing (bilateral wheezes) - CARDIOVASCULAR Cardiovascular: normal peripheral pulses, regular rate, rhythm - GASTROINTESTINAL (ABDOMEN) Abdominal Exam: normal bowel sounds, non tender, soft - LYMPHATIC Lymphatic: no adenopathy - MUSCULOSKELETAL Back Exam: normal inspection, no CVA tenderness, no vertebral tenderness Extremity: normal range of motion, non-tender, normal gait, pedal edema (1+ edema bilateraly) - SKIN Integumentary: normal color, normal turgor, warm/dry - NEUROLOGIC Neurologic: grossly normal, no motor/sensory deficits - PSYCHIATRIC Psych/Mental Status: normal mood/affect, normal thought content, normal thought process, oriented x 3 Progress - PLAN OF CARE/RESULTS Progress/Plan/Lab Results: Vital Signs - 8 hr 08/09/19 18:35 Temperature 98.5 F Pulse Rate 80 Respiratory Rate 24 Blood Pressure 162/97 O2 Sat by Pulse Oximetry 100 Laboratory Results - last 24 hr 08/09/19 08/09/19 08/09/19 18:56 18:56 18:56 WBC RBC Hgb Hct MCV MCH MCHC RDW Std Deviation Plt Count MPV Immature Gran % (Auto) Neut % (Auto) Lymph % (Auto) [place] % (Auto) Eos % (Auto) Baso % (Auto) Immature Gran # (Auto) Neut # (Auto) Lymph # (Auto) Millard # (Auto) Eos # (Auto) Baso # (Auto) PT INR PTT (Actin FS) Sodium 136 Potassium 3.6 Chloride 101 Carbon Dioxide 20 L Anion Gap 15 BUN 17 Creatinine 0.7 Estimated GFR/1.73 m2 > 60 BUN/Creatinine Ratio 24 Glucose 117 H Calculated Osmolality 275 Calcium 9.0 Total Bilirubin 0.59 AST 14 ALT 9 L Alkaline Phosphatase 244 H Creatine Kinase 50 Troponin T High Sens 30 H [id number]-A-[id number] Pept 5025 H Total Protein 7.1 Albumin 3.5 Globulin 3.6 Albumin/Globulin Ratio 1.0 Plasma Lactate 08/09/19 08/09/19 08/09/19 18:56 18:56 18:56 WBC 14.68 H RBC 3.57 L Hgb 8.7 L Hct 28.9 L MCV 81.0 MCH 24.4 L MCHC 30.1 L RDW Std Deviation 15.9 H Plt Count 595 H MPV 9.2 Immature Gran % (Auto) 0.1 Neut % (Auto) 79.8 H Lymph % (Auto) 8.8 L Millard % (Auto) 8.9 Eos % (Auto) 1.6 Baso % (Auto) 0.8 Immature Gran # (Auto) 0.02 Neut # (Auto) 11.70 H Lymph # (Auto) 1.29 Millard # (Auto) 1.31 H Eos # (Auto) 0.24 Baso # (Auto) 0.12 PT 19.5 H INR 1.61 PTT (Actin FS) 35.1 Sodium Potassium Chloride Carbon Dioxide Anion Gap BUN Creatinine Estimated GFR/1.73 m2 BUN/Creatinine Ratio Glucose Calculated Osmolality Calcium Total Bilirubin AST ALT Alkaline Phosphatase Creatine Kinase Troponin T High Sens Ubh-W-Sewtdvdskoo Pept Total Protein Albumin Globulin Albumin/Globulin Ratio Plasma Lactate 1.4 Orders Category Date Time Status Cardiac Monitoring DIRECTED Care 08/09/19 18:23 Active [place] Cath Insertion ORDERED Care 08/09/19 20:10 Active NEWS Score 2-4:Order NEWS Lactate Series NOW Care 04/01/20 18:40 Active Oxygen Therapy- ED Nursing DIRECTED Care 08/09/19 18:23 Active Saline Loc NOW Care 08/09/19 18:23 Active CHEST-1 VIEW [RAD] Stat Exams 08/09/19 18:24 Completed CBC WITH ELECTRONIC DIFF [HEME] Stat Lab 08/09/19 18:56 Completed CK PROFILE [SP CHEM] Stat Lab 08/09/19 18:56 Completed COMPREHENSIVE METABOLIC PANEL [CHEM] Stat Lab 08/09/19 18:56 Completed LACTATE, PLASMA [CHEM] Q3H Lab 08/09/19 18:56 Completed PRO B-NATRIURETIC PEPTIDE Stat Lab 08/09/19 18:56 Completed PROTIME WITH INR [COAG] Stat Lab 08/09/19 18:56 Completed PTT [COAG] Stat Lab 08/09/19 18:56 Completed TROPONIN T HIGH SENSITIVITY Stat Lab 08/09/19 18:56 Completed UA NIMS W/REFLEX CULT [URINALYSIS] Stat Lab 08/09/19 20:11 Uncollected Furosemide [Lasix] Med 08/09/19 19:11 Discontinued 60 mg IV NOW ONE CP/SOB/Palp >45 yrs of Age Stat Oth 08/09/19 18:23 Ordered EKG [EKG] Stat Ther 08/09/19 18:23 Ordered Result Diagrams: 08/09/19 18:56 08/09/19 18:56 - REASSESSMENT Reassessment #1 Time Reassessed: 20:12 Status: improving (SYMPTOMS IMPROVING BUT STILL DYSPNEIC AT REST. NO CHEST PAIN. DISCUSSED WITH HOSPITALIST WILL ADMIT) - EKG 1 Time of EKG reading by physician:: 18:56 EKG Read and Signed by:: Golden Magana EKG Interpretation (*Must complete 3 of following elements*): Normal Rate: 78 Rhythm: nsr [place]: normal QRS: normal LA Interval: normal ST Wave: normal - XRAY 1 XRAY Study: Chest Impression: Abnormal ( Patient: JEEVAN DÍAZDM Date: 08/09/19MR#: [id number] : 1955DM Status: PRE ERAcct#: [id number] Age/Sex: 64/FRoom/Bed: Loc: ED Ordering Physician: Golden Magana MD Family Physician: Reason for Procedure: SOB Signed EXAM: CHEST-1 VIEW INDICATION: SOB TECHNIQUE: One view COMPARISON: 07/18/2019 FINDINGS: There are extensive infiltrates throughout both lungs with a basilar predominance. These are predominantly interstitial indicating edema. There is also marked pulmonary venous congestion. There is probably a small effusion on the left. Cardiac silhouette is borderline prominent. IMPRESSION: Pulmonary edema and pulmonary venous congestion as described. Electronically signed by Jelani Rdz 08/09/2019 6:47 PM 08/09/191846 Interpreting Physician: Jelani Rdz MD Dictated Date/Time: 08/09/191845 cc: Golden Magana MD;) Departure - Departure Date of Disposition Decision: 08/09/19 Time of Disposition Decision: 20:12 DIAGNOSIS: CHF (congestive heart failure) Disposition: ADMITTED INPATIENT 09 Certified Medical Emergency: Emergent Condition: Fair - Critical Care Note This patient required my direct & personal management of CC.: No Attestation - Physician/ HARSH Attestation Patient care was provided by Advanced Practice Provider:: No The physician spent face to face time with patient:: Yes Advanced Practice Provider documentation review:: Supervising physician onsite and consulted in the evaluation and care of this patient. The physician did have a face to face encounter with the patient. This chart was documented by the indicated scribe, (Niru Sibley Scribe) and accurately reflects the services I performed and decisions made by me, Golden Magana MD, as attested by the provider's signature.
[2019-08-09 20:38] LABS: URINE SOURCE CATH
[2019-08-09 20:42] LABS: BILIRUBIN URINE NEGATIVE (NEGATIVE); BLOOD URINE NEGATIVE (NEGATIVE); COLOR YELLOW; GLUCOSE URINE NEGATIVE (NEGATIVE); KETONE URINE NEGATIVE (NEGATIVE); LEUKOCYTES URINE NEGATIVE (NEGATIVE); NITRITE URINE NEGATIVE (NEGATIVE); PROTEIN URINE TRACE mg/dL (NEGATIVE); TURBIDITY URINE CLEAR (CLEAR); UROBILINOGEN URINE NORMAL (NORMAL)
[2019-08-09 20:43] LABS: UR EPITHELIAL CELLS <10 /HPF (<10); URINE BACTERIA NEGATIVE /HPF; URINE RBC <10 /HPF (<10); URINE WBC <10 /HPF (<10)
[2019-08-09] MEDS ORDERED: TYLENOL PO PRN (20:45)
[2019-08-09] MEDS: VENTOLIN HFA INH SCH ×2 (20:45→21:37)
[2019-08-09] MEDS ORDERED: ZOFRAN IV PRN (20:45)
--- NOTE | 2019-08-09 21:54 | HISTORY AND PHYSICAL ---
PRIMARY CARE PHYSICIAN: Adiel Arana MD REASON FOR ADMISSION: One-day history of sudden shortness of breath. HISTORY OF PRESENT ILLNESS: Ms. Zahira Fregoso is a 64-year-old woman with past medical history of diastolic heart failure last seen in June of this year. She said that she has been having worsening shortness of breath for the last 1 to 2 days, but over the last 12 hours, it has become profoundly worse that she is unable to even ambulate without feeling profoundly dyspneic. Said despite increasing her baseline home O2 from 2 to 4 L, she still felt short of breath. She denies any antecedent chest pain, palpitations, nausea, vomiting, or lightheadedness. Denies any antecedent leg swelling, redness or pain. She denies any abdominal distention. She says she has only coughed a few times and is dry. Denies any fever, chills, or upper respiratory symptoms. Denies any recent change in her medications. No neurological complaints. No polyuria or polydipsia. No change in urinary habits. No altered bowel movements. No blood loss. REVIEW OF SYSTEMS: Twelve-system review was done. Positive findings per HPI. ALLERGIES: Macrolides, latex, clindamycin, Levaquin, Flagyl, sulfa drugs, metal and some "mycins." HOME MEDICATIONS: Have been reconciled, but she does state that she has been taking sotalol, aspirin, apixaban, Pletal, Lasix, hydrocodone, Zanaflex, Lipitor, Celebrex, trazodone, omeprazole, but these have not been officially confirmed. PAST MEDICAL HISTORY: Notable for hypertension, CHF, psoriasis, and Mayer esophagus. SURGICAL HISTORY: She has had bilateral knee surgery, colon resection, hernia repair, left arm surgery. FAMILY HISTORY: Notable for heart disease but no diabetes or cancer in first-degree relatives. SOCIAL HISTORY: Does not smoke, drink, or use drugs. Lives alone. LAB WORK: Increased vascular markings with what appears to be some underlying interstitial findings which may be chronic. Urinalysis is unremarkable. PT 19, INR 1.6. ProBNP 5000. Last proBNP was 1200 less than 3 weeks ago. Alkaline phosphatase 244, glucose 117, BUN 17, creatinine 0.7, carbon dioxide is 20, potassium 3.6. WBC 14,000, hemoglobin and hematocrit 8 and 29, platelets 595,000 and 79% neutrophils. Lactate was normal. EKG showed normal sinus rhythm at 78, no specific ST-T wave changes. Troponin is negative at 30. PHYSICAL EXAMINATION: VITAL SIGNS: Blood pressure 162/98, pulse is 80, temperature is 98.5 degrees, respiratory rate is 24. Oxygen saturation is 100% on 5 L nasal cannula. GENERAL: Middle-aged, obese white female, in [id number] respiratory distress. She is alert and oriented to person, place, and time with normal mood, affect, but somewhat anxious. HEENT: Head is normocephalic, atraumatic. Eyes: PERRLA, EOMI. She is anicteric but pale. ENT for exam is grossly normal. No central cyanosis. NECK: Supple but short and thick. Cannot visualize any blurred vision or any JVD. No thyromegaly visualized. No bruit appreciated. CHEST: Bibasilar crepitations. Decreased entry in the bases. CARDIOVASCULAR: First and second heart sounds heard. The patient has a 2/6 ejection systolic murmur heard in the left sternal border. No gallops or rubs. Rhythm is regular. ABDOMEN: Protuberant, soft, nontender. No organomegaly. Bowel sounds are normal. RECTAL: Deferred at this time. EXTREMITIES: No edema, clubbing or peripheral cyanosis. Distal pulse volumes regular, symmetrical. NEUROLOGICAL: No gross focal deficits. SKIN: Intact. No breakdown, lesion or erythema with good turgor. MUSCULOSKELETAL: Grossly normal. ASSESSMENT: 1. Acute diastolic heart failure. 2. Acute on chronic respiratory failure secondary to number one. 3. Hypertensive heart disease. 4. Atrial fibrillation. 5. Hyperlipidemia. 6. Coronary artery disease. 7. History of psoriasis. 8. Mayer esophagus. PLAN: The patient will be started on intravenous diuretics high dose and home dose. Her last EF was within normal limits. Her blood pressure was noticeably elevated and she may benefit from evaluation for sleep studies. We will add on Aldactone for blood pressure control and diuresis and prevention of potassium loss while monitoring daily BMP. Chest film was ordered 2 days from now and will need to be followed. Consult Cardiology for further input. cc: MD Adiel Parra MD
[2019-08-09] MEDS ORDERED: PROTONIX [NONFORMULARY] PO ONE (22:47)
[2019-08-09] MEDS ORDERED: DOXYCYCLINE PO SCH (22:47)
[2019-08-10] MEDS: VENTOLIN HFA INH SCH ×4 (04:30→21:00)
[2019-08-10] MEDS: PROTONIX [NONFORMULARY] PO SCH ×2 (05:58→08:16)
[2019-08-10 06:08] LABS: BASO# 0.08 X1000 (0.0-0.2); BASO% 0.7 % (0.0-0.8); EOS# 0.39 X1000 (0.0-0.7); EOS% 3.2 % (0.0-10.0); HEMATOCRIT 27.4 % (37.0-47.0); HEMOGLOBIN 8.2 g/dL (12.0-16.0); LYMPH# 1.89 X1000 (1.2-3.4); LYMPH% 15.6 % (20.5-51.1); MCHC 29.9 g/dL (33-37); MCV 80.1 FL (81-99); MONO% 11.6 % (1.7-9.3); MPV 9.1 FL (7.4-10.4); NEUT# 8.32 X1000 (1.4-6.5); NEUT% 68.9 % (42.2-75.2); PLT 589 X1000 (130-400); RBC 3.42 XMIL (4.2-5.4); RDW 15.6 % (11.5-14.5); WBC 12.08 X1000 (4.8-10.8)
[2019-08-10 06:26] LABS: AGAP 16; BUN 15 mg/dL (8-22); CALCIUM 8.4 mg/dL (8.8-10.2); CHLORIDE 103 mmol/L (98-107); COSMO 283; CREATININE 0.7 mg/dL (0.5-0.9); ESTIMATED GFR > 60; GLUCOSE 86 mg/dL (70-104); MAGNESIUM 1.6 mg/dL (1.5-2.7); POTASSIUM 3.4 mmol/L (3.5-5.1); SODIUM 142 mmol/L (136-145); TCO2 23 mmol/L (25-35)
--- NOTE | 2019-08-10 06:40 | EKG Report ---
Test Performed on : 08/10/2019 06:10:09 AM Test Reason : chest pain Blood Pressure : / mmHG Vent. Rate : 070 BPM Atrial Rate : 070 BPM P-R Int : 148 ms QRS Dur : 086 ms QT Int : 478 ms P-R-T Axes : 043 049 064 degrees QTc Int : 516 ms Sinus rhythm. with premature atrial complexes. with aberrant conduction. Possible Left atrial enlargement Nonspecific ST and T wave abnormality Prolonged QT Abnormal ECG When compared with ECG of 09-AUG-2019 18:56, (Unconfirmed) aberrant conduction. is now present Nonspecific T wave abnormality no longer evident in Inferior leads T wave inversion now evident in Anterior leads Confirmed by Trae DOVE, Oskar Gonzalez ([id number]) on 08/11/2019 9:10:53 AM
--- NOTE | 2019-08-10 06:41 | EKG Report ---
Test Performed on : 08/09/2019 6:56:49 PM Test Reason : sob Blood Pressure : / mmHG Vent. Rate : 078 BPM Atrial Rate : 078 BPM P-R Int : 158 ms QRS Dur : 088 ms QT Int : 408 ms P-R-T Axes : 032 028 033 degrees QTc Int : 465 ms Normal sinus rhythm. Normal ECG When compared with ECG of 23-JUL-2019 07:45, No significant change was found Unconfirmed Result
[2019-08-10] MEDS ORDERED: KLOR-CON PO ONE (07:17)
[2019-08-10] MEDS ORDERED: MAGNESIUM SULFATE 2 GM/S.W.I. 2 GM/50 ML IVPB IV ONE (07:17)
[2019-08-10] MEDS: LASIX IV SCH ×2 (08:17→20:34)
[2019-08-10] MEDS: ALDACTONE PO SCH (08:18)
--- NOTE | 2019-08-10 08:19 | Diag Imaging Result Doc PS360 ---
EXAM: CHEST-2 VIEWS INDICATION: CHF TECHNIQUE: 2 views COMPARISON: 08/09/2019 FINDINGS: There is persistent pulmonary venous congestion and interstitial edema. It has improved somewhat since the previous study, however. There is a small pleural effusion on the left and probably on the right. This is stable. No new consolidation is identified. Cardiac silhouette is stable. IMPRESSION: Interval modest improvement of pulmonary edema. Electronically signed by Jelani Rdz 08/10/2019 8:16 AM
[2019-08-10] MEDS: BETAPACE PO SCH ×2 (08:25→20:33)
[2019-08-10] MEDS: ASPIRIN PO SCH (08:25)
[2019-08-10] MEDS: CELEXA PO SCH (08:25)
[2019-08-10] MEDS: ELIQUIS PO SCH ×2 (08:25→20:34)
[2019-08-10] MEDS ORDERED: NS 500 ML IV ONE (11:43)
--- NOTE | 2019-08-10 11:47 | CARDIOLOGY CONSULTATION ---
DATE: 08/10/2019 REASON FOR CONSULTATION: Cardiology was consulted for congestive heart failure. HISTORY OF PRESENT ILLNESS: Ms. Fregoso is a 64-year-old, lady with a history of coronary artery disease, diastolic heart failure. She had been doing reasonably well for the last 1 to 2 days. She had sudden worsening of her shortness of breath and was profoundly noted to be dyspneic, orthopneic. Came to the emergency room, was admitted. She denies chest pain suggestive of angina or palpitations. She denies any fevers associated with the shortness of breath. She has had only cough as well. There are no palpitations. There is no dizziness or syncope since admission and giving her Lasix, she has improved. She feels better. PAST MEDICAL HISTORY: 1. Non-ST elevation myocardial infarction. 2. Congestive heart failure. 3. Last cardiac catheterization on 07/06/2019 revealed an ejection fraction of 60%. Right coronary artery was occluded in the proximal segment with [id number] collaterals. Circumflex was normal. The left main artery had ostial 20-30% stenosis. The left anterior descending artery, left main had mild plaque in the mid to pro proximal vessel of 30-40%. 4. Hypertension. 5. Mayer's esophagus. 6. Diverticulosis. 7. Hyperlipidemia. 8. Depression. 9. Reported history of cirrhosis. 10. Paroxysmal atrial fibrillation. SOCIAL HISTORY: Smoked 30 years previously. No alcohol abuse. FAMILY HISTORY: Significant for hypertension. REVIEW OF SYSTEMS: Fourteen point review of systems was done. GI System: There is no history of nausea, vomiting, or diarrhea. There is no history of hematemesis or melena. Central Nervous System: No focal weakness to suggest a CVA or TIA. System: There is no dysuria or hematuria. Respiratory System: As above. HOME MEDICATIONS: Omeprazole 20, atorvastatin 40, Celexa 40, aspirin 81 mg a day, Lasix 40 mg p.o. b.i.d., sotalol 40 mg p.o. b.i.d., Eliquis 5 mg p.o. b.i.d., Pletal 100 mg p.o. b.i.d., gabapentin, Coreg 6.25 mg b.i.d. Currently, she is receiving Lasix 60 mg IV q.12 and she has been started on Aldactone 25 mg a day. PHYSICAL EXAMINATION: Blood pressure was 156/76. Jugular venous pressure was normal. First and second heart sounds were heard. There was a systolic murmur, 3/6. Respiratory System: Bibasilar inspiratory crepitations. Abdomen: Soft, nontender. There was no guarding or rigidity. Bowel sounds were heard. Central Nervous System: Alert and was moving all 4 extremities. Examination of the extremities revealed mild pedal edema. HEENT: Atraumatic, normocephalic. Pupils were equal and reacting to light. Examination of her neck, no lymphadenopathy. Trachea was central. LABORATORY EXAMINATION: Sodium 142, potassium 3.4, BUN 15, creatinine 0.7. ProBNP 5025. Cardiac enzymes were negative. Hematology: WBC 12.08, hemoglobin 8.2, 27.4, platelet count of 589,000. Her hematocrit earlier this year was 31.4 and on 07/18/2019, it was 27.6. Her hemoglobin this year has been between 9.2 to 8.0. In 2019, hemoglobin was 11.1. Chest x-ray revealed heart failure and today, there was modest improvement in pulmonary edema. ASSESSMENT AND PLAN: Ms. Zahira Fregoso is a 64-year-old, lady with a history of known coronary artery disease, hypertension, Mayer's esophagus, history of diastolic heart failure, has known occluded right coronary artery disease. Had been doing fairly well and in the last 2 days, she had sudden worsening of her symptoms. She became orthopneic and is admitted with heart failure. From a cardiac standpoint, her cardiac enzymes are negative. Electrocardiogram revealed a normal sinus rhythm with nonspecific ST-T changes. She has a loud murmur. This again could be multifactorial, related to her anemia as well and/or associated new valvular dysfunction. Symptomatically, she has improved. RECOMMENDATIONS: 1. Her sudden onset of worsening symptoms again is likely to be multifactorial. We need to make sure there is no new onset valvular dysfunction. We will get an echocardiogram. We will also get a renal duplex to rule out renal artery stenosis as well. 2. She is anemic. That could also account for her loud murmur. I suspect, given her known coronary artery disease, she will benefit from a blood transfusion. 3. She is on Eliquis. We will make sure there is no GI bleed to account for her anemia. We will get stool occult done. 4. She has been on Pletal at home. Would recommend stopping the Pletal. 5. Hyperlipidemia. Continue with Lipitor. 6. Hypertension. Continue with her beta blockers which she had been taking. She is on a combination of aspirin and Eliquis. Need to rule out a GI bleed and we will plan for stools occult blood. cc: Jimmy Mann MD
[2019-08-10] MEDS ORDERED: IMODIUM PO PRN (18:41)
--- NOTE | 2019-08-10 19:30 | PROGRESS NOTE ---
DATE: 08/10/2019 SUBJECTIVE: The patient is resting comfortably in bed. She states that her shortness of breath has improved since her admission last night. OBJECTIVE: Vital Signs: Temperature 98.2 degrees, blood pressure 136/68, heart rate 72, respirations 16, O2 saturation 94% on 2 L nasal cannula. General: This is a chronically ill- appearing elderly female lying in bed in no acute distress. Heart: S1, S2 normal. Regular rate and rhythm. Lungs: Equal air entry bilaterally. No wheezing. No rales. No rhonchi. Abdomen: Positive bowel sounds. Soft, nontender, nondistended. Extremities: No edema. No cyanosis. Neurologic: The patient is alert and oriented x3. LABS: White blood cell count 12, hemoglobin 8.2, hematocrit 27, platelets 589,000. Sodium 142, potassium 3.4, chloride 103, CO2 23, BUN 15, creatinine 0.7, magnesium 1.6. ASSESSMENT AND PLAN: 1. Acute on chronic hypoxemic respiratory failure likely secondary to pulmonary edema. The patient is on diuretic therapy. 2. Acute pulmonary edema. Continue with the current diuretic regimen. Further workup is in progress by the Cardiology service. 3. Hypomagnesemia. We will replace the patient's magnesium. 4. Hypokalemia. We will replace the patient's potassium. 5. Anemia. We will order iron studies. Stool for occult blood is currently pending. 6. Paroxysmal atrial fibrillation. Continue on sotalol, Coreg and Eliquis. 7. Situational depression. Continue on Celexa. 8. Gastroesophageal reflux disease. Continue on omeprazole. cc: MD JOSE Foster
[2019-08-10] MEDS: DESYREL PO SCH (20:33)
[2019-08-10] MEDS: LIPITOR PO SCH (20:34)
[2019-08-11] MEDS: VENTOLIN HFA INH SCH ×4 (04:00→21:40)
[2019-08-11 06:23] LABS: HEMATOCRIT 30.3 % (37.0-47.0); HEMOGLOBIN 9.5 g/dL (12.0-16.0); MCH 25.8 PG (27-31); MCHC 31.4 g/dL (33-37); MCV 82.3 FL (81-99); MPV 9.5 FL (7.4-10.4); RBC 3.68 XMIL (4.2-5.4); RDW 16.3 % (11.5-14.5); WBC 11.01 X1000 (4.8-10.8)
[2019-08-11] MEDS: PROTONIX [NONFORMULARY] PO SCH (06:24)
[2019-08-11 07:01] LABS: MAGNESIUM 1.7 mg/dL (1.5-2.7); PHOSPHORUS 3.4 mg/dL (2.7-4.5)
[2019-08-11 07:03] LABS: AGAP 12; BUN 15 mg/dL (8-22); CALCIUM 8.8 mg/dL (8.8-10.2); CHLORIDE 103 mmol/L (98-107); COSMO 283; CREATININE 0.8 mg/dL (0.5-0.9); ESTIMATED GFR > 60; GLUCOSE 87 mg/dL (70-104); IRON SATURATION 7 %; POTASSIUM 3.2 mmol/L (3.5-5.1); SODIUM 142 mmol/L (136-145); TCO2 27 mmol/L (25-35); TIBC 334 ug/dL; TOTAL IRON 23 ug/dL (49-151); UNBOUND IRON 311 ug/dL (112-346)
--- NOTE | 2019-08-11 07:05 | Diag Imaging Result Doc PS360 ---
EXAM: CHEST-PORTABLE INDICATION: dyspnea TECHNIQUE: One view COMPARISON: 08/10/2019 FINDINGS: Small bilateral pleural effusions are stable. There is stable pulmonary venous congestion and mild interstitial edema. No new consolidation is identified. Cardiac silhouette is stable. IMPRESSION: Stable chest. Electronically signed by Jelani Rdz 08/11/2019 7:03 AM
[2019-08-11 07:13] LABS: FERRITIN 29 ng/mL (13-150)
[2019-08-11] MEDS ORDERED: KLOR-CON PO ONE (09:48)
[2019-08-11] MEDS ORDERED: MAGNESIUM SULFATE 2 GM/S.W.I. 2 GM/50 ML IVPB IV ONE (09:48)
--- NOTE | 2019-08-11 10:28 | Diag Imaging Result Doc PS360 ---
US DUPLEX RENAL ARTY/VEIN LMTD - 08/11/2019 INDICATION: HTN, CHF, rule out renal artery stenosis TECHNIQUE: COMPARISON: CT abdomen pelvis 11/02/2013 FINDINGS: The kidneys are normal in echotexture. No hydronephrosis. The right kidney measures 10.9 x 4.9 x 5.3 cm. The left kidney measures 10.4 x 4.7 x 5.7 cm. No abnormal mass or fluid collection. The renal artery measurements are normal bilaterally. Segmental renal artery resistive index is about 0.75 bilaterally. Renal artery ratios are 0.91 on the right and 0.88 on the left. IMPRESSION: Negative exam. Electronically signed by Jagdish Reis 08/11/2019 10:25 AM
[2019-08-11] MEDS: ELIQUIS PO SCH ×2 (10:29→20:26)
[2019-08-11] MEDS: CELEXA PO SCH (10:29)
[2019-08-11] MEDS: ALDACTONE PO SCH (10:29)
[2019-08-11] MEDS: ASPIRIN PO SCH (10:30)
[2019-08-11] MEDS: LASIX IV SCH ×2 (10:30→20:26)
[2019-08-11] MEDS: BETAPACE PO SCH ×2 (10:30→20:26)
--- NOTE | 2019-08-11 10:55 | ECHO REPORT ---
ORDER DATE: 08/10/2019 PROCEDURE: Echocardiogram. INDICATION: Mitral regurgitation. FINDINGS: This is a limited echo: 1. There was no color Doppler evaluation of the tricuspid valve. The RV systolic pressure was estimated at 54 mmHg suggesting pulmonary hypertension. 2. Normal RV size and systolic function. 3. No mitral valve prolapse was identified. Mild mitral annular calcification with mild mitral regurgitation. 4. Normal LV size. The end-diastolic dimension was 5.1 cm. Normal LV systolic function. Estimated EF of 55% with normal wall motion. 5. Aortic valve is calcified with restriction in motion consistent with mild aortic stenosis. The peak gradient across the valve is 28 with a mean of 16. Mild aortic insufficiency was identified. 6. No pericardial effusion identified. cc: MD Teri Woody PA
--- NOTE | 2019-08-11 14:19 | PROGRESS NOTE ---
DATE: 08/11/2019 SUBJECTIVE: The patient is resting comfortably in bed. She states that she feels much better. Her O2 requirements have decreased. OBJECTIVE: Vital Signs: Temperature 98.3 degrees, blood pressure 111/66, heart rate 62, respirations 20, O2 saturation 96% on 2 L. Intake:1.2 L, Output:3.6 L HEENT: Normocephalic, Atraumatic, PERRLA, EOMI HEART: S1, S2 normal, RRR LUNGS: Equal air entry bilaterally, no wheezing, no rales ABD: +BS, soft, NT, ND EXT: no edema, no cyanosis, no calf tenderness LABS: REVIEWED ASSESSMENT AND PLAN 1. Chronic hypoxemic respiratory failure. Improved. 2. Acute pulmonary edema with CHF exacerbation. Continue on the current cardiac regimen. The patient is responding well to diuretic therapy. 3. Atrial fibrillation. The patient is rate controlled. Continue on sotalol and Eliquis 4. Obesity. Aware. 5. Iron deficiency anemia. Will start iron supplementation. Disposition: Will likely be ready for discharge home tomorrow. cc: Michelle Elizondo MD MTDD
[2019-08-11] MEDS ORDERED: VENOFER 200 MG in NS 150 ML IV ONE (17:40)
[2019-08-11] MEDS: DESYREL PO SCH (20:26)
[2019-08-11] MEDS: LIPITOR PO SCH (20:26)
[2019-08-11] MEDS: ICAR-C PO SCH (20:30)
[2019-08-12] MEDS: VENTOLIN HFA INH SCH ×2 (03:57→09:14)
[2019-08-12] MEDS: PROTONIX [NONFORMULARY] PO SCH (06:12)
[2019-08-12 07:09] LABS: AGAP 14; BUN 17 mg/dL (8-22); CALCIUM 9.3 mg/dL (8.8-10.2); CHLORIDE 100 mmol/L (98-107); COSMO 284; CREATININE 0.9 mg/dL (0.5-0.9); ESTIMATED GFR > 60; GLUCOSE 92 mg/dL (70-104); MAGNESIUM 1.9 mg/dL (1.5-2.7); POTASSIUM 3.2 mmol/L (3.5-5.1); SODIUM 142 mmol/L (136-145); TCO2 28 mmol/L (25-35)
[2019-08-12] MEDS ORDERED: KLOR-CON PO ONE (07:30)
[2019-08-12] MEDS: ELIQUIS PO SCH (08:38)
[2019-08-12] MEDS: BETAPACE PO SCH (08:38)
[2019-08-12] MEDS: CELEXA PO SCH (08:39)
[2019-08-12] MEDS: ASPIRIN PO SCH (08:39)
[2019-08-12] MEDS: ICAR-C PO SCH (08:39)
[2019-08-12] MEDS: ALDACTONE PO SCH (08:39)
[2019-08-12] MEDS ORDERED: LASIX PO SCH (09:00)
--- NOTE | 2019-08-12 10:58 | Diag Imaging Result Doc PS360 ---
CHEST-2 VIEWS - 08/12/2019 INDICATION: hypoxia COMPARISON: 08/11/2019 FINDINGS: There has been improvement in the diffuse interstitial edema. Pulmonary vascular congestion has also significantly improved. Stable cardiomegaly. IMPRESSION: Significant improvement from prior. Electronically signed by Jagdish Reis 08/12/2019 10:55 AM
[2019-08-12 11:55] VITALS: BP 125/49
--- NOTE | 2019-08-12 15:33 | CARDIOLOGY PROGRESS NOTE ---
DATE: 08/12/2019 SUBJECTIVE: Ms. Fregoso reports she is doing better. She is breathing better. She has no orthopnea. OBJECTIVE: Afebrile. Heart rate 60, blood pressure 125/49.General: No acute distress. Cardiovascular: She sounds to be in a regular rate and rhythm. She has a 2/6 systolic murmur heard throughout the precordium. She has no lower extremity edema. Chest: Clear to auscultation bilaterally. She has no increased work of breathing. Abdomen: Soft, nontender. PERTINENT DATA: Her white count is 11, hematocrit 30, platelet count 560,000. Sodium 142, potassium is 3.2, BUN 17, creatinine 0.9, magnesium level is 1.9. ASSESSMENT: Ms. Fregoso is a 64-year-old female with diastolic failure. PLAN: She has a history of occluded RCA. She had been discontinued off her beta-humberto when we added in sotalol. Presently on admission she was not on any sort of antianginal therapy other than the beta blockade effect from the sotalol. We will add in amlodipine 5 mg daily. She has an occluded RCA and I am wondering if she is becoming ischemic and that is resulting in the relatively sudden onset of shortness of breath. This could also resulting in ischemic MR as well as possible diastolic failure. We will try to make that addition with amlodipine 5 mg daily, otherwise we will continue her on the aspirin and Eliquis. She is off Brilinta. This was discontinued last hospitalization when we added in Eliquis for atrial fibrillation. We will continue her on sotalol and spironolactone. Her most recent echocardiogram on 08/10/2019 showed a preserved ejection fraction with mild AI, mild , mild MR. Electrocardiogram on 08/10/2019 showed sinus rhythm, QTc of 516. Electrocardiogram on 08/09/2019 showed a QTc of 465. cc: Alan Mcmillan MD
[2019-08-13] MEDS ORDERED: NORVASC PO SCH (09:00)
--- NOTE | 2019-08-14 15:10 | PROGRESS NOTE ---
cc: Michelle Elizondo MD MTDD
--- NOTE | 2019-08-16 15:22 | DISCHARGE SUMMARY ---
ADMISSION DATE: 08/09/2019 DISCHARGE DATE: 08/12/2019 FINAL DISCHARGE DIAGNOSES: 1. Chronic hypoxemic respiratory failure. 2. Acute pulmonary edema. 3. Acute diastolic congestive heart failure exacerbation. 4. Atrial fibrillation. 5. Iron deficiency anemia. 6. Obesity. 7. Hypertension. CONSULTATIONS: Cardiology consultation with Dr. Mcmillan. HOSPITAL COURSE: Ms. Fregoso is a 64-year-old female with a history of multiple medical problems who presented to the ER with shortness of breath. On admission, the patient was noted to have pulmonary edema. The patient was admitted to the hospitalist service, and Cardiology was consulted. The patient was treated with diuretic therapy and supplemental oxygen. Iron studies were performed, and the patient was noted to be iron deficient. She did receive IV iron infusion and was started on oral supplementation as well. The patient responded well to the diuretic therapy. Adjustments were made to her cardiac regimen by the commutator assembler. The patient continued to improve clinically and was ultimately cleared for discharge home on 08/12/2019. DISCHARGE MEDICATIONS: 1. Norvasc 5 mg oral daily. 2. Aldactone 25 mg oral daily. 3. Icar-C 1 tab oral twice a day. 4. Omeprazole 20 mg p.o. daily. 5. Lipitor 40 mg oral daily. 6. Celexa 40 mg p.o. daily. 7. Trazodone 50 mg oral at bedtime. 8. Aspirin 81 mg p.o. daily. 9. Lasix 40 mg oral twice a day. 10. Betapace 40 mg oral twice a day. 11. Eliquis 5 mg oral twice a day. 12. Pletal 100 mg oral twice a day. 13. Zanaflex 4 mg oral twice a day p.r.n. for spasms. 14. Gabapentin 1 tablet oral twice a day p.r.n. 15. Coreg 6.25 mg oral every 12 hours. 16. Celebrex 200 mg oral twice a day. 17. Potassium 20 mEq oral daily. 18. Symbicort 1 inhalation daily p.r.n. 19. Zofran 4 mg oral every 8 hours. 20. Irbesartan/hydrochlorothiazide 1 tab oral daily. DISCHARGE DIET: Low-sodium, low-cholesterol diet. ACTIVITY: As tolerated. FOLLOWUP INSTRUCTIONS: The patient will need to follow up with Dr. Alan Mcmillan on 08/30/2019 at 10:15 a.m. cc: Michelle Elizondo MD
== END 2019-08-12 16:42 | disposition home health service (06) | DRG 292 ==
LOC: ED 18:18 → 2N 23:16 → SUATTDRO 23:16
PROVIDERS: ATTEND Internal Medicine